=== PATIENT | female | born 1940 | race Caucasian/White ===

== ENCOUNTER → 2017-05-21 | Outpatient (CLI) | payer MEDICARE, OTHER ==
[~2017-05-21] MED LIST: AMLO10TA82 PO; CARV12.53 PO; CARV25TA PO; CHOL50003 PO; DULO60CA6 PO; DXZS4T PO; FISH OIL; FISH OIL 1,2001 EAC1 PO; GENT3.5O3 OU; HCT25T PO; LOPE2TAB48 PO; LPRM1B120 PO; METF-380 PO; NEBI5TAB8 PO; OMEP-10 PO; PANT40TA PO; POLY1DRO2 OU; POTA10CA43 PO; PRV20T PO; SCR1T PO; VALS320T8 PO; [UNRECOGNIZED DRUG - OTHER]; [UNRECOGNIZED DRUG - OTHER]
== END ==
LOC: RT 12:28
PROVIDERS: ATTEND Internal Medicine
DX: J84.10 Pulmonary fibrosis, unspecified (principal)

== ENCOUNTER → 2018-05-04 | Outpatient (CLI) | payer MEDICARE, OTHER ==
[~2018-05-04] MED LIST changes: +RT-ALBUTEROL SULF 2.5 MG/3 ML PRE-MIX VIAL INH ONE
== END ==
LOC: CARD 09:27
PROVIDERS: ATTEND Internal Medicine
DX: J45.909 Unspecified asthma, uncomplicated (principal); J44.9 Chronic obstructive pulmonary disease, unspecified; J84.115 Respiratory bronchiolitis interstitial lung disease
CPT/HCPCS: 93306; 94060; 94726; 94729

== ENCOUNTER 2018-11-19 09:45 | Inpatient (IN) | payer MEDICARE, OTHER ==
[2018-11-19] VITALS (23 sets, daily range): BP systolic 63–154; BP diastolic 47–76
[~2018-11-19] VITALS: Ht 165.1 cm; Wt 77.1 kg
[~2018-11-19 09:45] MED LIST changes: -RT-ALBUTEROL SULF 2.5 MG/3 ML PRE-MIX VIAL INH ONE
--- OUTSIDE RECORDS SUMMARY | 2018-11-19 09:52 | XMS REPORT | CCD ---
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 Name Role Phone PP Unavailable CCM Unavailable Summary Purpose Interface Exchange Insurance Providers Payer name Policy type / Coverage type Covered democrat ID Effective Begin Date Effective End Date WPS Medicare Part B Medicare Part B [id number] Unknown [employer] [place] Medicare Part B [id number] Unknown Family history Brother Diagnosis Age At Onset Blood clot Unknown Father Diagnosis Age At Onset No Family Disease Entered N/A Son Diagnosis Age At Onset No Family Disease Entered N/A Daughter Diagnosis Age At Onset No Family Disease Entered N/A Brother Diagnosis Age At Onset Skin cancer Unknown Mother Diagnosis Age At Onset No Family Disease Entered N/A Daughter Diagnosis Age At Onset No Family Disease Entered N/A Social History Social History Element Codes Description Effective Dates Marital status Unknown 02/02/2012 Number of children Unknown 3 02/02/2012 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 Unknown Has never used illegal drugs 02/02/2012 Allergies, Adverse Reactions, Alerts Substance Reaction Codes Entered Date Inactivated Date Status clonidine RxNorm: 2599 02/02/2012 No Inactive Date Active Past Medical History Illness Codes Condition Status Onset Date Resolved Date Essential (primary) hypertension ICD-9: 401.1 ICD-10: I10 Active 02/19/2017 Unknown Idiopathic pulmonary fibrosis ICD-9: 516.31 ICD-10: J84.112 Active 07/01/2016 Unknown Type 2 diabetes mellitus without complications ICD-9: 250.00 ICD-10: E11.9 Active 10/29/2016 Unknown Vitamin D deficiency, unspecified ICD-9: 268.9 ICD-10: E55.9 Active 09/08/2018 Unknown Encounter for immunization ICD-9: V04.81 ICD-10: Z23 Active 07/01/2016 Unknown Type 2 diabetes mellitus with hyperglycemia ICD-9: 250.00 ICD-10: E11.65 Active 12/23/2015 Unknown Encounter for general adult medical examination with abnormal findings ICD-9: V70.0 ICD-10: Z00.01 Active 09/22/2016 Unknown Encounter for immunization ICD-9: V03.82 ICD-10: Z23 Active 09/09/2017 Unknown Cough ICD-9: 786.2 ICD-10: R05 Active 10/29/2016 Unknown Essential (primary) hypertension ICD-9: 401.9 ICD-10: I10 Active 10/29/2016 Unknown Pneumonia, unspecified organism ICD-9: 486 ICD-10: J18.9 Active 10/29/2016 Unknown Mixed incontinence ICD -9: 788.33 ICD-10: N39.46 Active 11/21/2015 Unknown COPD (chronic obstructive pulmonary disease) ICD-9: 496 Active 05/12/2015 Unknown Diabetes ICD-9: 250.00 Active 02/02/2012 Unknown Diarrhea ICD-9: 787.91 Active 02/02/2012 Unknown ESSENTIAL HYPERTENSION ICD-9: 401.9 Active 02/08/2014 Unknown COUGH ICD-9: 786.2 Active 04/12/2014 Unknown ESOPHAGEAL REFLUX ICD- 9: 530.81 Active 04/12/2014 Unknown Hiatal hernia ICD-9: 553.3 Active 04/12/2014 Unknown Hoarseness of voice ICD-9: 784.42 Active 03/13/2014 Unknown Hoarseness or changing voice ICD-9: 784.49 Active 03/13/2014 Unknown Tachycardia ICD-9: 785.0 Active 03/13/2014 Unknown Skin cancer Unknown Resolved 02/08/2014 Unknown Facial swelling ICD-9 : 784.2 Resolved 03/01/2012 Unknown HYPERLIPIDEMIA ICD-9: 272.4 Active 10/10/2013 Unknown Mouth dryness ICD-9: 527.7 Active 10/10/2013 Unknown Rosacea ICD-9: 695.3 Active 03/29/2013 Unknown Benign neoplasm of skin ICD-9: 216.9 Active 11/28/2012 Unknown VACCIN FOR INFLUENZA ICD-9: V04.81 Active 08/15/2012 Unknown Encounter for routine pelvic examination ICD-9: V72.31 Active 05/31/2012 Unknown Skin lesion ICD-9: 709.9 Active 05/31/2012 Unknown Vaginal Discharge ICD- 9: 623.5 Active 05/31/2012 Unknown Diabetes Unknown Active 02/02/2012 Unknown Fibromyalgia Unknown Active 02/02/2012 Unknown Gastroesophageal reflux disease Unknown Active 02/02/2012 Unknown Hyperlipidemia Unknown Active 02/02/2012 Unknown Hypertension Unknown Active 02/02/2012 Unknown Ulcerative colitis Unknown Active 02/02/2012 Unknown Vitamin D Deficiency Unknown Active 02/02/2012 Unknown Fibromyalgia ICD-9: 729.1 Active 02/02/2012 Unknown Problems Condition Codes Effective Dates Condition Status Essential (primary) hypertension ICD-9: 401.1 ICD-10: I10 02/19/2017 Active Idiopathic pulmonary fibrosis ICD-9: 516.31 ICD-10: J84.112 07/01/2016 Active Type 2 diabetes mellitus without complications ICD-9: 250.00 ICD-10: E11.9 10/29/2016 Active Vitamin D deficiency, unspecified ICD-9: 268.9 ICD-10: E55.9 09/08/2018 Active Encounter for immunization ICD-9: V04.81 ICD-10: Z23 07/01/2016 Active Type 2 diabetes mellitus with hyperglycemia ICD-9: 250.00 ICD-10: E11.65 12/23/2015 Active Encounter for general adult medical examination with abnormal findings ICD-9: V70.0 ICD-10: Z00.01 09/22/2016 Active Encounter for immunization ICD-9: V03.82 ICD-10: Z23 09/09/2017 Active Cough ICD-9: 786.2 ICD-10: R05 10/29/2016 Active Essential (primary) hypertension ICD-9: 401.9 ICD-10: I10 10/29/2016 Active Pneumonia, unspecified organism ICD-9: 486 ICD-10: J18.9 10/29/2016 Active Mixed incontinence ICD -9: 788.33 ICD-10: N39.46 11/21/2015 Active COPD (chronic obstructive pulmonary disease) ICD-9: 496 05/12/2015 Active Diabetes ICD-9: 250.00 02/02/2012 Active Diarrhea ICD-9: 787.91 02/02/2012 Active ESSENTIAL HYPERTENSION ICD-9: 401.9 02/08/2014 Active COUGH ICD-9: 786.2 04/12/2014 Active ESOPHAGEAL REFLUX ICD- 9: 530.81 04/12/2014 Active Hiatal hernia ICD-9: 553.3 04/12/2014 Active Hoarseness of voice ICD-9: 784.42 03/13/2014 Active Hoarseness or changing voice ICD-9: 784.49 03/13/2014 Active Tachycardia ICD-9: 785.0 03/13/2014 Active Skin cancer Unknown 02/08/2014 Resolved Facial swelling ICD-9 : 784.2 03/01/2012 Resolved HYPERLIPIDEMIA ICD-9: 272.4 10/10/2013 Active Mouth dryness ICD-9: 527.7 10/10/2013 Active Rosacea ICD-9: 695.3 03/29/2013 Active Benign neoplasm of skin ICD-9: 216.9 11/28/2012 Active VACCIN FOR INFLUENZA ICD-9: V04.81 08/15/2012 Active Encounter for routine pelvic examination ICD-9: V72.31 05/31/2012 Active Skin lesion ICD-9: 709.9 05/31/2012 Active Vaginal Discharge ICD- 9: 623.5 05/31/2012 Active Diabetes Unknown 02/02/2012 Active Fibromyalgia Unknown 02/02/2012 Active Gastroesophageal reflux disease Unknown 02/02/2012 Active Hyperlipidemia Unknown 02/02/2012 Active Hypertension Unknown 02/02/2012 Active Ulcerative colitis Unknown 02/02/2012 Active Vitamin D Deficiency Unknown 02/02/2012 Active Fibromyalgia ICD-9: 729.1 02/02/2012 Active Medications Medication Codes Instructions Start Date Stop Date Status Fill Instructions Breeze 2 Test Strips RxNorm: USE TO TEST ONCE DAILY 201703/13/2020 Active prednisone 5 mg tablet RxNorm: 195516 1 Tablet(s) PO daily No Stop Date Active pantoprazole 40 mg tablet,delayed release RxNorm: 687480 1 Tablet(s) PO daily 09/08/2018 No Stop Date Active losartan 100 mg tablet RxNorm: 441356 1 Tablet(s) PO daily 01/07/2019 Active carvedilol 25 mg tablet RxNorm: 692959 1 Tablet(s) PO BID 01/1301/07/2019 Active hydrochlorothiazide 25 mg tablet RxNorm: 781447 1 Tablet(s) PO daily 01/13/2018 01/07/2019 Active glimepiride 1 mg tablet RxNorm: 834652 1 Tablet(s) PO daily 01/07/2019 Active doxazosin 4 mg tablet RxNorm: 032772 1 Tablet(s) PO BID 201701/07/2019 Active amlodipine 10 mg tablet RxNorm: 215034 1 Tablet(s) PO daily 01/07/2019 Active potassium chloride ER 20 mEq tablet,extended release RxNorm: 179219 1 Tablet(s) PO BID 01/13/2018 01/07/2019 Active pantoprazole 40 mg tablet,delayed release RxNorm: 122332 1 Tablet(s) PO BID 01/13/2018 09/07/2018 Inactive azithromycin 250 mg tablet RxNorm: 056384 1 Tablet(s) PO daily 02/19/2017 02/23/2017 Inactive Take two the first day Zithromax Z-Yasir 250 mg tablet RxNorm: 020834 1 Tablet(s) PO UD 10/30/2016 02/18/2017 Inactive zpack cefdinir 300 mg capsule RxNorm: 041339 1 Capsule(s) PO BID 03/201711/05/2016 Inactive potassium chloride ER 10 mEq capsule,extended release RxNorm: 101454 2 Capsule(s) PO QHS 09/23/2016 09/17/2017 Inactive losartan 100 mg tablet RxNorm: 440763 1 Tablet(s) PO daily 05/201609/24/2017 Inactive Kenalog 40 mg/mL suspension for injection RxNorm: 2871254 1 Milliliter(s) Inj 03/26/2016 03/26/2016 Inactive doxazosin 4 mg tablet RxNorm: 942745 1 Tablet(s) PO BID 201504/03/2017 Inactive glimepiride 1 mg tablet RxNorm: 532659 1 Tablet(s) PO daily 04/03/2017 Inactive pantoprazole 40 mg tablet,delayed release RxNorm: 358951 1 Tablet(s) PO daily 01/10/2016 04/03/2017 Inactive amlodipine 10 mg tablet RxNorm: 376006 1 Tablet(s) PO daily or BID based on bp 01/10/2016 04/03/2017 Inactive hydrochlorothiazide 25 mg tablet RxNorm: 009878 1 Tablet(s) PO daily 01/10/2016 04/03/2017 Inactive carvedilol 25 mg tablet RxNorm: 988881 1 Tablet(s) PO BID 01/0904/03/2017 Inactive carvedilol 25 mg tablet RxNorm: 617318 1 Tablet(s) PO BID 12/2301/09/2016 Inactive doxazosin 4 mg tablet RxNorm: 930537 1 Tablet(s) PO BID 201501/09/2016 Inactive amlodipine 10 mg tablet RxNorm: 670634 1 Tablet(s) PO daily or BID based on bp 12/24/2015 01/09/2016 Inactive glimepiride 1 mg tablet RxNorm: 190239 1 Tablet(s) PO daily 01/09/2016 Inactive Myrbetriq 25 mg tablet,extended release RxNorm: 9086877 1 Tablet(s) PO daily 11/22/2015 07/01/2016 Inactive Breeze 2 Test Strips RxNorm: MISCELLANEOUS TEST ONCE DAILY 09/20/2018 Inactive Kenalog 40 mg/mL suspension for injection RxNorm: 7199761 Milliliter(s) Inj 05/13/2015 05/13/2015 Inactive prednisone 20 mg tablet RxNorm: 499538 2 Tablet(s) PO daily 05/15/2015 Inactive Lactobacillus acidophilus 1 billion cell tablet RxNorm: 073326 1 Tablet(s) PO BID 05/13/2015 06/11/2015 Inactive carvedilol 25 mg tablet RxNorm: 369835 1 Tablet(s) PO BID 02/2809/25/2015 Inactive Cymbalta 60 mg capsule,delayed release RxNorm: 762482 1 Capsule(s) PO daily 01/02/2015 05/12/2015 Inactive metformin 1,000 mg tablet RxNorm: 802250 1 Tablet(s) PO BID 08/201505/12/2015 Inactive doxazosin 4 mg tablet RxNorm: 599728 1 Tablet(s) PO BID 201404/01/2015 Inactive amlodipine 10 mg tablet RxNorm: 974822 1 Tablet(s) PO daily 08/201512/23/2015 Inactive Breeze 2 Test Strips RxNorm: Miscellaneous test once daily 06/19/2015 Inactive carvedilol 25 mg tablet RxNorm: 749993 1 Tablet(s) PO BID 06/0412/30/2014 Inactive Fish Oil 1,000 mg capsule RxNorm: 3 Capsule(s) PO daily 201312/23/2015 Inactive potassium chloride ER 10 mEq capsule,extended release RxNorm: 559406 1 Capsule(s) PO QHS 04/12/2014 04/06/2015 Inactive hydrochlorothiazide 25 mg tablet RxNorm: 174815 1 Tablet(s) PO daily 04/12/2014 07/05/2015 Inactive carvedilol 12.5 mg tablet RxNorm: 199921 1.5 Tablet(s) PO BID 03/13/2014 2014 Inactive Carafate 100 mg/mL oral suspension RxNorm: 651653 10 Milliliter(s) PO QID 03/13/2014 05/12/2015 Inactive disepnse qs x 30 days pantoprazole 40 mg tablet,delayed release RxNorm: 890488 1 Tablet(s) PO daily 03/13/2014 03/07/2015 Inactive Diovan 160 mg tablet RxNorm: 612594 1 Tablet(s) PO 03/13/2014 05/12/2015 Inactive carvedilol 12.5 mg tablet RxNorm: 500942 1 Tablet(s) PO BID 03/12/2014 Inactive Diovan 320 mg tablet RxNorm: 701881 1 Tablet(s) PO daily 201303/12/2014 Inactive Influenza Virus Vaccine 0.5 mL RxNorm: IM 07/18/2013 07/18/2013 Inactive Breeze 2 Test Strips RxNorm: Miscellaneous test once daily 03/201306/05/2014 Inactive minocycline 50 mg tablet RxNorm: 902379 1 Tablet(s) PO BID PRN use prn for rosacea flair 03/29/2013 02/07/2014 Inactive tetracycline 250 mg capsule RxNorm: 813395 1 Capsule(s) PO BID PRN 03/29/2013 03/29/2013 Inactive Flagyl 500 mg tablet RxNorm: 743334 1 Tablet(s) PO BID 201212/21/2012 Inactive Cymbalta 60 mg capsule,delayed release RxNorm: 445190 1 Capsule(s) PO daily 11/08/2012 11/02/2013 Inactive Cymbalta 60 mg capsule,delayed release RxNorm: 910897 1 Capsule(s) PO daily 06/15/2012 11/07/2012 Inactive fluconazole 150 mg tablet RxNorm: 878886 1 Tablet(s) PO daily 05/31/2012 06/04/2012 Inactive potassium chloride ER 10 mEq capsule,extended release RxNorm: 580533 1 Capsule(s) PO QHS 05/31/2012 05/25/2013 Inactive Vitamin D3 2,000 unit tablet RxNorm: 010025 5 Tablet(s) PO daily 05/31/2012 02/07/2014 Inactive Bystolic 5 mg Tab RxNorm: 715369 1 Tablet(s) PO daily 201101/04/2014 Inactive Diovan 320 mg tablet RxNorm: 135524 1 Tablet(s) PO daily 201102/23/2013 Inactive omeprazole 20 mg Cap, delayed release RxNorm: 992932 1 Capsule(s) PO daily 03/01/2012 02/23/2013 Inactive Lipitor 10 mg Tab RxNorm: 545640 1 Tablet(s) PO daily 201102/18/2012 Inactive Lipitor 10 mg Tab RxNorm: 374159 1 Tablet(s) PO daily 201102/08/2012 Inactive azathioprine 50 mg tablet RxNorm: 488324 2 Tablet(s) PO QAM and 1 Tablet PO QPM No Start Date Active carboxymethylcellulose sodium 0.5 % Eye Drops RxNorm: 3922337 2 Drop(s) OPH TID No Start Date Active fenofibrate 160 mg tablet RxNorm: 872627 1 Tablet(s) PO daily No Start Date Active Aldara 5 % topical cream packet RxNorm: 658100 1 Application TOP 5x per week for skin cancer No Start Date Active Bystolic 5 mg tablet RxNorm: 088744 1 Tablet(s) PO daily No Start Date 02/07/2014 Inactive metformin 1,000 mg Tab RxNorm: 548020 1 Tablet(s) PO BID No Start Date 01/01/2015 Inactive Prilosec 20 mg capsule,delayed release RxNorm: 279052 1 Capsule(s) PO daily No Start Date 03/12/2014 Inactive GenTeal PM 85 %-15 % Eye Ointment RxNorm: 623599 .25 inch OPH QHS No Start Date 12/23/2015 Inactive Breeze 2 Test Strips RxNorm: Miscellaneous test once daily No Start Date 05/29/2013 Inactive Prevalite 4 gram Oral Packet RxNorm: 319923 1 packet PO daily No Start Date 05/30/2012 Inactive Vitamin D3 2,000 unit tablet RxNorm: 227127 5 Tablet(s) PO daily No Start Date 05/30/2012 Inactive loperamide 2 mg Cap RxNorm: 857067 1 Capsule(s) PO BID PRN No Start Date 02/07/2014 Inactive amlodipine 10 mg tablet RxNorm: 804393 1 Tablet(s) PO daily No Start Date 01/01/2015 Inactive Pravachol 40 mg Tab RxNorm: 427689 1/2 Tablet(s) PO daily No Start Date 02/07/2014 Inactive hydrochlorothiazide 25 mg Tab RxNorm: 237936 1 Tablet(s) PO daily No Start Date 04/11/2014 Inactive losartan 100 mg tablet RxNorm: 775644 1 Tablet(s) PO daily No Start Date 07/01/2016 Inactive Bystolic 5 mg Tab RxNorm: 357594 1 Tablet(s) PO daily No Start Date 02/29/2012 Inactive prednisone 2.5 mg tablet RxNorm: 621107 1 Tablet(s) PO daily No Start Date 09/07/2018 Inactive Diovan 320 mg Tab RxNorm: 356040 1 Tablet(s) PO daily No Start Date 02/29/2012 Inactive Vitamin D3 2,000 unit Cap RxNorm: 552427 1 Capsule(s) PO BID No Start Date 05/30/2012 Inactive doxazosin 4 mg Tab RxNorm: 003809 1 Tablet(s) PO BID No Start Date 01/01/2015 Inactive Vitamin D3 5,000 unit tablet RxNorm: 109166 2 Tablet(s) PO daily No Start Date 12/23/2015 Inactive omeprazole 20 mg Cap, delayed release RxNorm: 155225 1 Capsule(s) PO daily No Start Date 02/29/2012 Inactive leflunomide 20 mg tablet RxNorm: 195839 1 Tablet(s) PO daily No Start Date 09/07/2018 Inactive carvedilol 25 mg Tab RxNorm: 627044 1 Tablet(s) PO BID No Start Date 01/03/2014 Inactive Cymbalta 60 mg capsule,delayed release RxNorm: 649685 1 Capsule(s) PO daily No Start Date 06/14/2012 Inactive Spiriva with HandiHaler 18 mcg & inhalation capsules RxNorm: 383318 1 Capsule(s) INH daily No Start Date 12/23/2015 Inactive Medication Administered Medication Codes Instructions Start Date Status Kenalog 40 mg/mL suspension for injection RxNorm: 7545344 1Milliliter 03/26/2016 No longer Active Kenalog 40 mg/mL suspension for injection RxNorm: 5249308 Milliliter 05/13/2015 No longer Active Influenza Virus Vaccine 0.5 mL RxNorm: 07/18/2013 No longer Active Immunizations Vaccine Codes Date Status Influenza CVX: 141 08/11/2018 completed Pneumococcal (Adult) CVX: 133 09/09/2017 completed Influenza CVX: 141 08/13/2017 completed Influenza CVX: 141 07/02/2016 completed Influenza CVX: 141 07/18/2013 completed Influenza CVX: 141 08/15/2012 completed Assessments Condition Codes Effective Dates Idiopathic pulmonary fibrosis ICD-10: J84.112 ICD-9: 516.31 09/08/2018 Essential (primary) hypertension ICD-10: I10 ICD-9: 401.1 09/08/2018 Type 2 diabetes mellitus without complications ICD-10: E11.9 ICD-9: 250.00 09/08/2018 Vitamin D deficiency, unspecified ICD-10: E55.9 ICD-9: 268.9 09/08/2018 Encounter for immunization ICD-10: Z23 ICD-9: V04.81 08/11/2018 Type 2 diabetes mellitus with hyperglycemia ICD-10: E11.65 ICD-9: 250.00 01/13/2018 Encounter for general adult medical examination with abnormal findings ICD-10: Z00.01 ICD-9: V70.0 09/29/2017 Encounter for immunization ICD-10: Z23 ICD-9: V03.82 09/09/2017 Cough ICD-10: R05 ICD-9: 786.2 02/19/2017 Pneumonia, unspecified organism ICD-10: J18.9 ICD-9: 486 10/30/2016 Essential (primary) hypertension ICD-10: I10 ICD-9: 401.9 10/30/2016 Mixed incontinence ICD-10: N39.46 ICD-9: 788.33 11/22/2015 Diarrhea ICD-9: 787.91 05/13/2015 ESSENTIAL HYPERTENSION ICD-9: 401.9 05/13 Diabetes ICD-9: 250.00 05/13/2015 COPD (chronic obstructive pulmonary disease) ICD-9: 496 05/13/2015 ESOPHAGEAL REFLUX ICD-9: 530.81 2013 Hiatal hernia ICD-9: 553.3 04/12/2014 COUGH ICD-9: 786.2 04/12/2014 Hoarseness or changing voice ICD-9: 784.49 03/13/2014 Tachycardia ICD-9: 785.0 03/13/2014 Hoarseness of voice ICD-9: 784.42 2013 HYPERLIPIDEMIA ICD-9: 272.4 10/10/2013 Mouth dryness ICD-9: 527.7 10/10/2013 VACCIN FOR INFLUENZA ICD-9: V04.81 2012 Rosacea ICD-9: 695.3 03/29/2013 Benign neoplasm of skin ICD-9: 216.9 01/2013 SKIN DISORDER ICD-9: 709.9 11/28/2012 Encounter for routine pelvic examination ICD-9: V72.31 05/31/2012 Vaginal Discharge ICD-9: 623.5 2011 Facial swelling ICD-9: 784.2 03/01/2012 Fibromyalgia ICD-9: 729.1 02/02/2012 Reason For Visit Reason For Visit Effective Dates Notes diabetes mellitus 09/08/2018 vaccination against influenza 08/11/2018 diabetes mellitus 01/13/2018 diabetes mellitus 12/01/2017 Annual Medicare Wellness Exam 09/29/2017 vaccination against pneumonia 09/09/2017 vaccination against influenza 08/13/2017 cough 02/19/2017 cough 10/30/2016 Annual Medicare Wellness Exam 09/23/2016 diabetes mellitus 07/02/2016 diabetes mellitus 03/26/2016 diabetes mellitus 12/24/2015 diabetes mellitus 11/22/2015 hypertension 05/13/2015 cough 04/12/2014 cough 03/13/2014 hypertension 02/08/2014 hypertension 10/10/2013 vaccination against influenza 07/18/2013 hypertension 03/29/2013 skin lesion 11/28/2012 vaccination against influenza 08/15/2012 well woman exam (65+ years) 05/31/2012 diabetes mellitus 03/01/2012 pt states that she was rushed this morning and a little stressed, that's why her bp was high hypertension 02/02/2012 Results Observation Observation Code Item Item Code Result Date %Hba1C Yks048 % HbA1c 19546-5 6.4 % 01/13/2018 %Hba1C Nck265 Gluc Ave 137 mg/dL 01/13/2018 %Hba1C Cgn980 % HbA1c 81900-2 5.9 % 10/30/2016 %Hba1C Fox426 Gluc Ave 123 mg/dL 10/30/2016 Cbc With Differential Ord2 WBC 9.09 K/ul 10/30/2016 Cbc With Differential Ord2 RBC 4.88 M/ul 10/30/2016 Cbc With Differential Ord2 HGB 14.4 g/dl 10/30/2016 Cbc With Differential Ord2 Neut% 70.9 % 10/30/2016 Cbc With Differential Ord2 HCT 42.5 % 10/30/2016 Cbc With Differential Ord2 Lymph% 18.4 % 10/30/2016 Cbc With Differential Ord2 MCV 87.1 fl 10/30/2016 Cbc With Differential Ord2 [place]% 6.8 % 10/30/2016 Cbc With Differential Ord2 MCH 29.5 pg 10/30/2016 Cbc With Differential Ord2 MCHC 33.9 pg 10/30/2016 Cbc With Differential Ord2 Eos% 3.5 % 10/30/2016 Cbc With Differential Ord2 PLT 251 K/ul 10/30/2016 Cbc With Differential Ord2 Baso% 0.4 % 10/30/2016 Cbc With Differential Ord2 RDW 14.3 % 10/30/2016 Cbc With Differential Ord2 Neut ABS# 6.44 K/ul 10/30/2016 Cbc With Differential Ord2 Lymph ABS# 1.67 K/ul 10/30/2016 Cbc With Differential Ord2 [place] ABS# 0.6 K/ul 10/30/2016 Cbc With Differential Ord2 Eos ABS# 0.3 K/ul 10/30/2016 Cbc With Differential Ord2 Baso ABS# 0.0 K/ul 10/30/2016 Comp Metabolic Gnm072 NA 140 mEq/L 10/30/2016 Comp Metabolic Gxv471 K 3.8 mEq/L 10/30/2016 Comp Metabolic Ptg780 CL 101 mEq/L 10/30/2016 Comp Metabolic Djv202 CO2 32.0 mEq/L 10/30/2016 Comp Metabolic Tvj276 ANION GAP 11 10/30/2016 Comp Metabolic Fuz770 GLUCOSE 160 mg/dL 10/30/2016 Comp Metabolic Cqq478 Creat 0.7 mg/dL 10/30/2016 Comp Metabolic Elw266 eGFR 94 ml/min/1.73m2 10/30/2016 Comp Metabolic Rzl001 BUN 22 mg/dL 10/30/2016 Comp Metabolic Itm414 B/C Ratio 33.8 Ratio 10/30/2016 Comp Metabolic Hsu320 CALCIUM 9.7 mg/dL 10/30/2016 Comp Metabolic Eiv422 ALK PHOS 58 U/L 10/30/2016 Comp Metabolic Old509 AST(SGOT) 18 U/L 10/30/2016 Comp Metabolic Okh927 ALT(SGPT) 21 U/L 10/30/2016 Comp Metabolic Kij843 BILI T 0.4 mg/dL 10/30/2016 Comp Metabolic Pyi767 ALBUMIN 4.1 g/dL 10/30/2016 Comp Metabolic Mmf636 TPRO 7.0 g/dL 10/30/2016 Comp Metabolic Uhf367 GLOB 2.9 g/dL 10/30/2016 Comp Metabolic Vqg195 A/G Ratio 1.4 Ratio 10/30/2016 Comp Metabolic Tjv730 Osmo 286 mOsmo 10/30/2016 Review of Systems System Result Effective Dates Constitutional No recent illness 2017 Constitutional No chills 09/08/2018 Constitutional No diaphoresis 09/08/2018 Constitutional No fever 09/08/2018 Eyes No blindness 09/08/2018 Eyes No eye pain 09/08/2018 Eyes No vision change 09/08/2018 Ears/Nose/Throat/Neck No nasal discharge 09/08/2018 Cardiovascular No chest pain/pressure Cardiovascular No dyspnea 09/08/2018 Respiratory No chest congestion 2017 Respiratory No cough 09/08/2018 Gastrointestinal No abdominal pain 2017 Gastrointestinal No constipation 2017 Gastrointestinal diarrhea 09/08/2018 Gastrointestinal No nausea 09/08/2018 Gastrointestinal No vomiting 09/08/2018 Genitourinary/Nephrology No dysuria 09/08 Neurologic No alteration of consciousness 09/08/2018 Neurologic No mental status change 2017 Endocrine diabetes mellitus type 2 2017 Constitutional fatigue 09/08/2018 Constitutional insomnia 09/08/2018 Ears/Nose/Throat/Neck hoarseness 2017 Ears/Nose/Throat/Neck nasal allergies Genitourinary/Nephrology urinary incontinence 09/08/2018 Genitourinary/Nephrology urinary urgency 09/08/2018 Musculoskeletal stiffness 09/08/2018 Musculoskeletal swelling 09/08/2018 Musculoskeletal arthralgia(s) 09/08/2018 Constitutional recent illness 01/13/2018 Constitutional No anorexia 01/13/2018 Constitutional No night sweats 2017 Constitutional No chills 01/13/2018 Constitutional No diaphoresis 01/13/2018 Constitutional fatigue 01/13/2018 Constitutional No fever 01/13/2018 Constitutional insomnia 01/13/2018 Constitutional No malaise 01/13/2018 Constitutional No weight loss 01/13/2018 Constitutional No weight gain 01/13/2018 Constitutional No obesity 01/13/2018 Eyes No eye pain 01/13/2018 Eyes No vision change 01/13/2018 Ears/Nose/Throat/Neck No dizziness 2017 Ears/Nose/Throat/Neck No headache 2017 Ears/Nose/Throat/Neck hoarseness 2017 Ears/Nose/Throat/Neck nasal allergies Ears/Nose/Throat/Neck nasal discharge Ears/Nose/Throat/Neck No sinus congestion 01/13/2018 Ears/Nose/Throat/Neck No sore throat Cardiovascular No chest pain/pressure Cardiovascular No dyspnea 01/13/2018 Cardiovascular fatigue 01/13/2018 Respiratory productive sputum 01/13/2018 Respiratory chest congestion 01/13/2018 Respiratory chest tightness 01/13/2018 Respiratory No cigarette smoking 2017 Respiratory cough 01/13/2018 Gastrointestinal No abdominal pain 2017 Gastrointestinal No constipation 2017 Gastrointestinal diarrhea 01/13/2018 Gastrointestinal No nausea 01/13/2018 Gastrointestinal No vomiting 01/13/2018 Genitourinary/Nephrology No anuria/oliguria 01/13/2018 Genitourinary/Nephrology No dysuria 01/13 Genitourinary/Nephrology urinary urgency 01/13/2018 Genitourinary/Nephrology urinary incontinence 01/13/2018 Musculoskeletal stiffness 01/13/2018 Musculoskeletal swelling 01/13/2018 Musculoskeletal arthralgia(s) 01/13/2018 Dermatologic No rash 01/13/2018 Neurologic No alteration of consciousness 01/13/2018 Neurologic No dizziness 01/13/2018 Neurologic No mental status change 2017 Psychiatric No anxiety 01/13/2018 Psychiatric No depression 01/13/2018 Endocrine No polydipsia 01/13/2018 Endocrine No polyuria 01/13/2018 Hematologic/Lymphatic No abnormal ecchymoses 01/13/2018 Hematologic/Lymphatic No abnormal bleeding and bruising 01/13/2018 Allergy/Immunology No anaphylactoid reaction 01/13/2018 Genitourinary/Nephrology nocturia 2017 Eyes No eye pain 12/01/2017 Eyes No vision change 12/01/2017 Cardiovascular No chest pain/pressure 04/2018 Cardiovascular No dyspnea 12/01/2017 Gastrointestinal No abdominal pain 2017 Gastrointestinal No constipation 2017 Gastrointestinal diarrhea 12/01/2017 Gastrointestinal No nausea 12/01/2017 Gastrointestinal No vomiting 12/01/2017 Constitutional No recent illness 2017 Constitutional No chills 12/01/2017 Constitutional No diaphoresis 12/01/2017 Constitutional No fever 12/01/2017 Eyes No eye erythema 12/01/2017 Ears/Nose/Throat/Neck No nasal discharge 12/01/2017 Respiratory No cough 12/01/2017 Respiratory No chest congestion 2017 Genitourinary/Nephrology No dysuria 12/01 Neurologic No alteration of consciousness 12/01/2017 Neurologic No mental status change 2017 Endocrine diabetes mellitus type 2 2017 Constitutional No recent illness 2016 Constitutional No chills 09/29/2017 Constitutional No diaphoresis 09/29/2017 Constitutional No fever 09/29/2017 Eyes No eye erythema 09/29/2017 Ears/Nose/Throat/Neck No nasal discharge 09/29/2017 Cardiovascular No chest pain/pressure 03/2017 Cardiovascular No dyspnea 09/29/2017 Respiratory No cough 09/29/2017 Respiratory No dyspnea 09/29/2017 Neurologic No alteration of consciousness 09/29/2017 Neurologic No mental status change 2016 Constitutional recent illness 02/19/2017 Constitutional No anorexia 02/19/2017 Constitutional No night sweats 2016 Constitutional No chills 02/19/2017 Constitutional No diaphoresis 02/19/2017 Constitutional fatigue 02/19/2017 Constitutional No fever 02/19/2017 Constitutional insomnia 02/19/2017 Constitutional No malaise 02/19/2017 Constitutional No weight loss 02/19/2017 Constitutional No weight gain 02/19/2017 Constitutional No obesity 02/19/2017 Eyes No eye pain 02/19/2017 Eyes No vision change 02/19/2017 Ears/Nose/Throat/Neck No dizziness 2016 Ears/Nose/Throat/Neck No headache 2016 Ears/Nose/Throat/Neck nasal allergies Ears/Nose/Throat/Neck nasal discharge Ears/Nose/Throat/Neck hoarseness 2016 Ears/Nose/Throat/Neck No sinus congestion 02/19/2017 Ears/Nose/Throat/Neck No sore throat Cardiovascular No chest pain/pressure Cardiovascular fatigue 02/19/2017 Cardiovascular No dyspnea 02/19/2017 Respiratory productive sputum 02/19/2017 Respiratory chest congestion 02/19/2017 Respiratory chest tightness 02/19/2017 Respiratory No cigarette smoking 2016 Respiratory cough 02/19/2017 Gastrointestinal No abdominal pain 2016 Gastrointestinal No constipation 2016 Gastrointestinal diarrhea 02/19/2017 Gastrointestinal No nausea 02/19/2017 Gastrointestinal No vomiting 02/19/2017 Genitourinary/Nephrology No anuria/oliguria 02/19/2017 Genitourinary/Nephrology No dysuria 02/19 Genitourinary/Nephrology urinary urgency 02/19/2017 Genitourinary/Nephrology urinary incontinence 02/19/2017 Musculoskeletal stiffness 02/19/2017 Musculoskeletal swelling 02/19/2017 Musculoskeletal arthralgia(s) 02/19/2017 Dermatologic No rash 02/19/2017 Dermatologic sores 02/19/2017 Neurologic No alteration of consciousness 02/19/2017 Neurologic No dizziness 02/19/2017 Neurologic No mental status change 2016 Psychiatric No anxiety 02/19/2017 Psychiatric No depression 02/19/2017 Hematologic/Lymphatic No abnormal ecchymoses 02/19/2017 Hematologic/Lymphatic No abnormal bleeding and bruising 02/19/2017 Endocrine No polyuria 02/19/2017 Endocrine No polydipsia 02/19/2017 Allergy/Immunology No anaphylactoid reaction 02/19/2017 Dermatologic rash 10/30/2016 Constitutional recent illness 10/30/2016 Constitutional No anorexia 10/30/2016 Constitutional night sweats 10/30/2016 Constitutional No chills 10/30/2016 Constitutional diaphoresis 10/30/2016 Constitutional fatigue 10/30/2016 Constitutional No fever 10/30/2016 Constitutional No insomnia 10/30/2016 Constitutional No malaise 10/30/2016 Constitutional No weight loss 10/30/2016 Constitutional No weight gain 10/30/2016 Eyes No eye erythema 10/30/2016 Eyes No eye discharge 10/30/2016 Ears/Nose/Throat/Neck No dizziness 2016 Ears/Nose/Throat/Neck No headache 2016 Cardiovascular No chest pain/pressure 03/2017 Respiratory cough 10/30/2016 Respiratory productive sputum 10/30/2016 Gastrointestinal No anorexia 10/30/2016 Gastrointestinal No abdominal pain 2016 Gastrointestinal No constipation 2016 Gastrointestinal diarrhea 10/30/2016 Genitourinary/Nephrology No dysuria 10/30 Neurologic No alteration of consciousness 10/30/2016 Musculoskeletal joint complaint 2016 Psychiatric depression 10/30/2016 Constitutional No recent illness 2015 Constitutional No chills 09/23/2016 Constitutional No diaphoresis 09/23/2016 Constitutional fatigue 09/23/2016 Constitutional No fever 09/23/2016 Eyes No vision change 09/23/2016 Ears/Nose/Throat/Neck No headache 2015 Ears/Nose/Throat/Neck No nasal discharge 09/23/2016 Ears/Nose/Throat/Neck No otalgia 2015 Ears/Nose/Throat/Neck No sinus congestion 09/23/2016 Ears/Nose/Throat/Neck No sore throat Cardiovascular No chest pain/pressure Respiratory No chest congestion 2015 Respiratory cough 09/23/2016 Respiratory No dyspnea on exertion 2015 Respiratory No dyspnea 09/23/2016 Gastrointestinal No constipation 2015 Gastrointestinal diarrhea 09/23/2016 Musculoskeletal No joint complaint 2015 Dermatologic No sores 09/23/2016 Neurologic No alteration of consciousness 09/23/2016 Constitutional No malaise 09/23/2016 Eyes No eye erythema 09/23/2016 Ears/Nose/Throat/Neck No nasal allergies 09/23/2016 Cardiovascular No dyspnea 09/23/2016 Respiratory No productive sputum 2015 Gastrointestinal No abdominal pain 2015 Gastrointestinal No vomiting 09/23/2016 Gastrointestinal No nausea 09/23/2016 Neurologic No mental status change 2015 Constitutional No recent illness 2015 Constitutional No anorexia 07/02/2016 Constitutional No night sweats 2015 Constitutional No chills 07/02/2016 Constitutional No diaphoresis 07/02/2016 Constitutional fatigue 07/02/2016 Constitutional No fever 07/02/2016 Constitutional insomnia 07/02/2016 Constitutional No malaise 07/02/2016 Constitutional No weight loss 07/02/2016 Constitutional No weight gain 07/02/2016 Constitutional No obesity 07/02/2016 Eyes No vision change 07/02/2016 Ears/Nose/Throat/Neck No headache 2015 Ears/Nose/Throat/Neck hoarseness 2015 Ears/Nose/Throat/Neck nasal allergies 05/2016 Ears/Nose/Throat/Neck No nasal discharge 07/02/2016 Ears/Nose/Throat/Neck No otalgia 2015 Ears/Nose/Throat/Neck No otitis media 05/2016 Ears/Nose/Throat/Neck No sinus congestion 07/02/2016 Ears/Nose/Throat/Neck No sore throat 05/2016 Cardiovascular No chest pain/pressure 05/2016 Respiratory productive sputum 07/02/2016 Respiratory chest congestion 07/02/2016 Respiratory No chest tightness 2015 Respiratory No cigarette smoking 2015 Respiratory cough 07/02/2016 Respiratory No dyspnea on exertion 2015 Respiratory No dyspnea 07/02/2016 Gastrointestinal No constipation 2015 Gastrointestinal diarrhea 07/02/2016 Genitourinary/Nephrology No dysuria 07/02 Genitourinary/Nephrology urinary urgency 07/02/2016 Genitourinary/Nephrology No urinary frequency 07/02/2016 Genitourinary/Nephrology urinary incontinence 07/02/2016 Musculoskeletal No joint complaint 2015 Musculoskeletal No muscle weakness 2015 Musculoskeletal No myalgias 07/02/2016 Dermatologic No sores 07/02/2016 Psychiatric No anxiety 07/02/2016 Psychiatric No depression 07/02/2016 Dermatologic erythema 07/02/2016 Neurologic No alteration of consciousness 07/02/2016 Constitutional No recent illness 2015 Constitutional No anorexia 03/26/2016 Constitutional No night sweats 2015 Constitutional No chills 03/26/2016 Constitutional No diaphoresis 03/26/2016 Constitutional fatigue 03/26/2016 Constitutional No fever 03/26/2016 Constitutional insomnia 03/26/2016 Constitutional No malaise 03/26/2016 Constitutional No weight loss 03/26/2016 Constitutional No weight gain 03/26/2016 Constitutional No obesity 03/26/2016 Eyes No vision change 03/26/2016 Ears/Nose/Throat/Neck No headache 2015 Ears/Nose/Throat/Neck hoarseness 2015 Ears/Nose/Throat/Neck nasal allergies 11/2015 Ears/Nose/Throat/Neck No nasal discharge 03/26/2016 Ears/Nose/Throat/Neck No otalgia 2015 Ears/Nose/Throat/Neck No otitis media 11/2015 Ears/Nose/Throat/Neck No sinus congestion 03/26/2016 Ears/Nose/Throat/Neck No sore throat 11/2015 Cardiovascular No chest pain/pressure 11/2015 Respiratory productive sputum 03/26/2016 Respiratory chest congestion 03/26/2016 Respiratory No chest tightness 2015 Respiratory No cigarette smoking 2015 Respiratory cough 03/26/2016 Respiratory No dyspnea on exertion 2015 Respiratory No dyspnea 03/26/2016 Gastrointestinal No constipation 2015 Gastrointestinal diarrhea 03/26/2016 Genitourinary/Nephrology No dysuria 03/26 Genitourinary/Nephrology urinary urgency 03/26/2016 Genitourinary/Nephrology No urinary frequency 03/26/2016 Genitourinary/Nephrology urinary incontinence 03/26/2016 Musculoskeletal No joint complaint 2015 Musculoskeletal No muscle weakness 2015 Musculoskeletal No myalgias 03/26/2016 Dermatologic No rash 03/26/2016 Dermatologic No sores 03/26/2016 Psychiatric No anxiety 03/26/2016 Psychiatric No depression 03/26/2016 Constitutional No recent illness 2015 Constitutional No anorexia 12/24/2015 Constitutional No night sweats 2015 Constitutional No chills 12/24/2015 Constitutional No diaphoresis 12/24/2015 Constitutional fatigue 12/24/2015 Constitutional No fever 12/24/2015 Constitutional insomnia 12/24/2015 Constitutional No malaise 12/24/2015 Constitutional No weight loss 12/24/2015 Constitutional No weight gain 12/24/2015 Constitutional No obesity 12/24/2015 Eyes No vision change 12/24/2015 Ears/Nose/Throat/Neck No nasal discharge 12/24/2015 Ears/Nose/Throat/Neck No nasal allergies 12/24/2015 Ears/Nose/Throat/Neck No headache 2015 Ears/Nose/Throat/Neck hoarseness 2015 Ears/Nose/Throat/Neck No sore throat 10/2015 Ears/Nose/Throat/Neck No sinus congestion 12/24/2015 Ears/Nose/Throat/Neck No otitis media 10/2015 Ears/Nose/Throat/Neck No otalgia 2015 Cardiovascular No chest pain/pressure 10/2015 Respiratory cough 12/24/2015 Respiratory No cigarette smoking 2015 Respiratory No chest tightness 2015 Respiratory chest congestion 12/24/2015 Respiratory No dyspnea 12/24/2015 Respiratory No dyspnea on exertion 2015 Gastrointestinal diarrhea 12/24/2015 Gastrointestinal No constipation 2015 Genitourinary/Nephrology No dysuria 12/23 Genitourinary/Nephrology urinary incontinence 12/24/2015 Genitourinary/Nephrology urinary urgency 12/24/2015 Genitourinary/Nephrology No urinary frequency 12/24/2015 Dermatologic No rash 12/24/2015 Dermatologic No sores 12/24/2015 Musculoskeletal No myalgias 12/24/2015 Musculoskeletal No muscle weakness 2015 Musculoskeletal No joint complaint 2015 Psychiatric No depression 12/24/2015 Psychiatric No anxiety 12/24/2015 Respiratory No productive sputum 2015 Constitutional No recent illness 2015 Constitutional No anorexia 11/22/2015 Constitutional No night sweats 2015 Constitutional No chills 11/22/2015 Constitutional No diaphoresis 11/22/2015 Constitutional No fatigue 11/22/2015 Constitutional No fever 11/22/2015 Constitutional No insomnia 11/22/2015 Constitutional No malaise 11/22/2015 Constitutional No weight loss 11/22/2015 Constitutional No weight gain 11/22/2015 Constitutional No obesity 11/22/2015 Gastrointestinal No constipation 2015 Gastrointestinal diarrhea 11/22/2015 Gastrointestinal No nausea 11/22/2015 Gastrointestinal No vomiting 11/22/2015 Respiratory cough 11/22/2015 Respiratory No chest congestion 2015 Respiratory No chest tightness 2015 Respiratory No cigarette smoking 2015 Genitourinary/Nephrology No dysuria 11/22 Genitourinary/Nephrology urinary frequency 11/22/2015 Genitourinary/Nephrology urinary urgency 11/22/2015 Genitourinary/Nephrology urinary incontinence 11/22/2015 Genitourinary/Nephrology No urinary retention/hesitancy 11/22/2015 Eyes No vision change 11/22/2015 Ears/Nose/Throat/Neck voice change 2015 Ears/Nose/Throat/Neck No sore throat Ears/Nose/Throat/Neck No otalgia 2015 Ears/Nose/Throat/Neck No otitis media Ears/Nose/Throat/Neck No postnasal drip 11/22/2015 Ears/Nose/Throat/Neck No sinus congestion 11/22/2015 Ears/Nose/Throat/Neck hoarseness 2015 Ears/Nose/Throat/Neck No nasal allergies 11/22/2015 Ears/Nose/Throat/Neck No nasal discharge 11/22/2015 Ears/Nose/Throat/Neck No headache 2015 Eyes eyelid edema 11/22/2015 Cardiovascular No chest pain/pressure Respiratory dyspnea 11/22/2015 Respiratory dyspnea on exertion 2015 Respiratory No productive sputum 2015 Respiratory No nocturnal cough 2015 Musculoskeletal joint complaint 2015 Musculoskeletal muscle weakness 2015 Musculoskeletal arthralgia(s) 11/22/2015 Cardiovascular edema 11/22/2015 Psychiatric anxiety 11/22/2015 Psychiatric depression 11/22/2015 Dermatologic No rash 11/22/2015 Dermatologic No sores 11/22/2015 Constitutional No recent illness 2014 Constitutional No anorexia 05/13/2015 Constitutional No night sweats 2014 Constitutional No chills 05/13/2015 Constitutional No diaphoresis 05/13/2015 Constitutional No fatigue 05/13/2015 Constitutional No fever 05/13/2015 Constitutional No insomnia 05/13/2015 Constitutional No malaise 05/13/2015 Constitutional weight loss 05/13/2015 Constitutional No weight gain 05/13/2015 Eyes No eye discharge 05/13/2015 Eyes No eye erythema 05/13/2015 Ears/Nose/Throat/Neck No dizziness 2014 Ears/Nose/Throat/Neck No headache 2014 Cardiovascular No chest pain/pressure Cardiovascular No dyspnea 05/13/2015 Cardiovascular edema 05/13/2015 Respiratory No productive sputum 2014 Respiratory cough 05/13/2015 Respiratory dyspnea on exertion 2014 Gastrointestinal No abdominal pain 2014 Gastrointestinal No constipation 2014 Gastrointestinal diarrhea 05/13/2015 Genitourinary/Nephrology No dysuria 05/13 Musculoskeletal No joint complaint 2014 Dermatologic No rash 05/13/2015 Neurologic No alteration of consciousness 05/13/2015 Psychiatric No anxiety 05/13/2015 Psychiatric No depression 05/13/2015 Endocrine No dry or coarse skin 2014 Constitutional No anorexia 04/12/2014 Constitutional No night sweats 2013 Constitutional No chills 04/12/2014 Constitutional No diaphoresis 04/12/2014 Constitutional fatigue 04/12/2014 Constitutional No fever 04/12/2014 Constitutional No insomnia 04/12/2014 Constitutional No weight loss 04/12/2014 Constitutional No weight gain 04/12/2014 Eyes No eye discharge 04/12/2014 Eyes No eye erythema 04/12/2014 Ears/Nose/Throat/Neck No dizziness 2013 Ears/Nose/Throat/Neck No headache 2013 Ears/Nose/Throat/Neck No nasal allergies 04/12/2014 Ears/Nose/Throat/Neck No nasal discharge 04/12/2014 Ears/Nose/Throat/Neck No sore throat Ears/Nose/Throat/Neck No otalgia 2013 Ears/Nose/Throat/Neck No sinus congestion 04/12/2014 Respiratory No productive sputum 2013 Respiratory No chest congestion 2013 Respiratory cough 04/12/2014 Gastrointestinal No abdominal pain 2013 Gastrointestinal No constipation 2013 Gastrointestinal gastroesophageal reflux 04/12/2014 Gastrointestinal No nausea 04/12/2014 Gastrointestinal No vomiting 04/12/2014 Genitourinary/Nephrology No dysuria 04/12 Musculoskeletal stiffness 04/12/2014 Musculoskeletal No back pain 04/12/2014 Neurologic No alteration of consciousness 04/12/2014 Constitutional No recent illness 2013 Constitutional No anorexia 03/13/2014 Constitutional No night sweats 2013 Constitutional No chills 03/13/2014 Constitutional No diaphoresis 03/13/2014 Constitutional fatigue 03/13/2014 Constitutional No fever 03/13/2014 Constitutional No insomnia 03/13/2014 Constitutional No weight loss 03/13/2014 Constitutional No weight gain 03/13/2014 Eyes No eye discharge 03/13/2014 Eyes No eye erythema 03/13/2014 Ears/Nose/Throat/Neck No dizziness 2013 Ears/Nose/Throat/Neck No headache 2013 Ears/Nose/Throat/Neck No nasal allergies 03/13/2014 Ears/Nose/Throat/Neck No nasal discharge 03/13/2014 Ears/Nose/Throat/Neck No sore throat Ears/Nose/Throat/Neck No otalgia 2013 Ears/Nose/Throat/Neck No sinus congestion 03/13/2014 Respiratory No productive sputum 2013 Respiratory No chest congestion 2013 Respiratory cough 03/13/2014 Gastrointestinal No abdominal pain 2013 Gastrointestinal No constipation 2013 Gastrointestinal diarrhea 03/13/2014 Gastrointestinal gastroesophageal reflux 03/13/2014 Gastrointestinal No nausea 03/13/2014 Gastrointestinal No vomiting 03/13/2014 Genitourinary/Nephrology No dysuria 03/13 Musculoskeletal No back pain 03/13/2014 Dermatologic No rash 03/13/2014 Neurologic No alteration of consciousness 03/13/2014 Constitutional No recent illness 2013 Constitutional No anorexia 02/08/2014 Constitutional No night sweats 2013 Constitutional No chills 02/08/2014 Constitutional No diaphoresis 02/08/2014 Constitutional fatigue 02/08/2014 Constitutional No fever 02/08/2014 Constitutional No insomnia 02/08/2014 Constitutional No weight loss 02/08/2014 Constitutional No weight gain 02/08/2014 Eyes No eye discharge 02/08/2014 Eyes No eye erythema 02/08/2014 Ears/Nose/Throat/Neck No dizziness 2013 Ears/Nose/Throat/Neck No headache 2013 Ears/Nose/Throat/Neck No nasal allergies 02/08/2014 Ears/Nose/Throat/Neck No nasal discharge 02/08/2014 Ears/Nose/Throat/Neck No sore throat Ears/Nose/Throat/Neck No otalgia 2013 Ears/Nose/Throat/Neck No sinus congestion 02/08/2014 Respiratory No productive sputum 2013 Respiratory No chest congestion 2013 Respiratory cough 02/08/2014 Gastrointestinal No abdominal pain 2013 Gastrointestinal No constipation 2013 Gastrointestinal diarrhea 02/08/2014 Gastrointestinal gastroesophageal reflux 02/08/2014 Gastrointestinal No nausea 02/08/2014 Gastrointestinal No vomiting 02/08/2014 Genitourinary/Nephrology No dysuria 02/08 Musculoskeletal No back pain 02/08/2014 Dermatologic No rash 02/08/2014 Neurologic No alteration of consciousness 02/08/2014 Constitutional No recent illness 2012 Constitutional No anorexia 10/10/2013 Constitutional No night sweats 2012 Constitutional No chills 10/10/2013 Constitutional No diaphoresis 10/10/2013 Constitutional fatigue 10/10/2013 Constitutional No fever 10/10/2013 Constitutional No insomnia 10/10/2013 Constitutional No weight loss 10/10/2013 Constitutional No weight gain 10/10/2013 Eyes No eye discharge 10/10/2013 Eyes No eye erythema 10/10/2013 Ears/Nose/Throat/Neck No dizziness 2012 Ears/Nose/Throat/Neck No headache 2012 Ears/Nose/Throat/Neck No nasal allergies 10/10/2013 Ears/Nose/Throat/Neck No nasal discharge 10/10/2013 Ears/Nose/Throat/Neck No sore throat Ears/Nose/Throat/Neck No otalgia 2012 Ears/Nose/Throat/Neck No sinus congestion 10/10/2013 Respiratory No productive sputum 2012 Respiratory No chest congestion 2012 Respiratory cough 10/10/2013 Gastrointestinal No abdominal pain 2012 Gastrointestinal No constipation 2012 Gastrointestinal diarrhea 10/10/2013 Gastrointestinal gastroesophageal reflux 10/10/2013 Gastrointestinal No nausea 10/10/2013 Gastrointestinal No vomiting 10/10/2013 Genitourinary/Nephrology No dysuria 10/10 Musculoskeletal No back pain 10/10/2013 Neurologic No alteration of consciousness 10/10/2013 Musculoskeletal stiffness 10/10/2013 Constitutional No recent illness 2012 Constitutional No anorexia 03/29/2013 Constitutional No night sweats 2012 Constitutional No chills 03/29/2013 Constitutional No diaphoresis 03/29/2013 Constitutional fatigue 03/29/2013 Constitutional No fever 03/29/2013 Constitutional No insomnia 03/29/2013 Constitutional No weight loss 03/29/2013 Constitutional No weight gain 03/29/2013 Eyes No eye discharge 03/29/2013 Eyes No eye erythema 03/29/2013 Ears/Nose/Throat/Neck No dizziness 2012 Ears/Nose/Throat/Neck No headache 2012 Ears/Nose/Throat/Neck No nasal allergies 03/29/2013 Ears/Nose/Throat/Neck No nasal discharge 03/29/2013 Ears/Nose/Throat/Neck No otalgia 2012 Ears/Nose/Throat/Neck No sinus congestion 03/29/2013 Ears/Nose/Throat/Neck No sore throat 02/2013 Respiratory No productive sputum 2012 Respiratory No chest congestion 2012 Respiratory cough 03/29/2013 Gastrointestinal No abdominal pain 2012 Gastrointestinal No constipation 2012 Gastrointestinal diarrhea 03/29/2013 Gastrointestinal gastroesophageal reflux 03/29/2013 Gastrointestinal No nausea 03/29/2013 Gastrointestinal No vomiting 03/29/2013 Genitourinary/Nephrology No dysuria 03/29 Musculoskeletal No back pain 03/29/2013 Dermatologic No rash 03/29/2013 Neurologic No alteration of consciousness 03/29/2013 Constitutional No recent illness 2012 Constitutional No anorexia 11/28/2012 Constitutional No night sweats 2012 Constitutional No chills 11/28/2012 Constitutional No diaphoresis 11/28/2012 Constitutional No fatigue 11/28/2012 Constitutional No fever 11/28/2012 Constitutional No insomnia 11/28/2012 Constitutional No weight loss 11/28/2012 Constitutional No weight gain 11/28/2012 Cardiovascular No chest pain/pressure 01/2013 Cardiovascular No edema 11/28/2012 Cardiovascular No near-syncope/dizziness 11/28/2012 Cardiovascular No syncope 11/28/2012 Respiratory No productive sputum 2012 Respiratory No chest congestion 2012 Respiratory No chest tightness 2012 Respiratory No cough 11/28/2012 Respiratory No dyspnea 11/28/2012 Musculoskeletal No back pain 11/28/2012 Musculoskeletal No joint complaint 2012 Neurologic No alteration of consciousness 11/28/2012 Constitutional No recent illness 2011 Constitutional No anorexia 05/31/2012 Constitutional No night sweats 2011 Constitutional No chills 05/31/2012 Constitutional No diaphoresis 05/31/2012 Constitutional No fatigue 05/31/2012 Musculoskeletal No back pain 05/31/2012 Dermatologic No rash 05/31/2012 Neurologic No alteration of consciousness 05/31/2012 Cardiovascular No chest pain/pressure 04/2012 Cardiovascular No edema 05/31/2012 Cardiovascular No near-syncope/dizziness 05/31/2012 Cardiovascular No syncope 05/31/2012 Respiratory No chest tightness 2011 Respiratory No dyspnea 05/31/2012 Genitourinary/Nephrology No breast complaint 05/31/2012 Genitourinary/Nephrology No hematuria 04/2012 Genitourinary/Nephrology No urinary frequency 05/31/2012 Genitourinary/Nephrology No urinary incontinence 05/31/2012 Genitourinary/Nephrology No urinary urgency 05/31/2012 Genitourinary/Nephrology No vaginal discharge 05/31/2012 Genitourinary/Nephrology No menopausal symptoms 05/31/2012 Genitourinary/Nephrology No nocturia 04/2012 Genitourinary/Nephrology No Pap smear abnormality 05/31/2012 Musculoskeletal No joint complaint 2011 Constitutional No fever 05/31/2012 Constitutional No insomnia 05/31/2012 Constitutional No weight loss 05/31/2012 Constitutional No weight gain 05/31/2012 Eyes No eye discharge 05/31/2012 Eyes No eye erythema 05/31/2012 Ears/Nose/Throat/Neck No dizziness 2011 Ears/Nose/Throat/Neck No headache 2011 Ears/Nose/Throat/Neck No nasal allergies 05/31/2012 Ears/Nose/Throat/Neck No nasal discharge 05/31/2012 Ears/Nose/Throat/Neck No otalgia 2011 Ears/Nose/Throat/Neck No sinus congestion 05/31/2012 Ears/Nose/Throat/Neck No sore throat 04/2012 Respiratory No productive sputum 2011 Respiratory No chest congestion 2011 Respiratory No cough 05/31/2012 Gastrointestinal No abdominal pain 2011 Gastrointestinal No constipation 2011 Gastrointestinal No diarrhea 05/31/2012 Gastrointestinal gastroesophageal reflux 05/31/2012 Gastrointestinal No nausea 05/31/2012 Gastrointestinal No vomiting 05/31/2012 Genitourinary/Nephrology No dysuria 05/31 Constitutional No recent illness 2011 Constitutional No anorexia 03/01/2012 Constitutional No night sweats 2011 Constitutional No chills 03/01/2012 Constitutional No diaphoresis 03/01/2012 Constitutional fatigue 03/01/2012 Constitutional No fever 03/01/2012 Constitutional No insomnia 03/01/2012 Constitutional No weight loss 03/01/2012 Constitutional No weight gain 03/01/2012 Eyes No eye discharge 03/01/2012 Eyes No eye erythema 03/01/2012 Ears/Nose/Throat/Neck No dizziness 2011 Ears/Nose/Throat/Neck No headache 2011 Ears/Nose/Throat/Neck No nasal discharge 03/01/2012 Ears/Nose/Throat/Neck No nasal allergies 03/01/2012 Ears/Nose/Throat/Neck No otalgia 2011 Ears/Nose/Throat/Neck No sinus congestion 03/01/2012 Ears/Nose/Throat/Neck No sore throat 05/2012 Respiratory No productive sputum 2011 Respiratory No chest congestion 2011 Respiratory cough 03/01/2012 Gastrointestinal No abdominal pain 2011 Gastrointestinal No constipation 2011 Gastrointestinal diarrhea 03/01/2012 Gastrointestinal gastroesophageal reflux 03/01/2012 Gastrointestinal No nausea 03/01/2012 Gastrointestinal No vomiting 03/01/2012 Genitourinary/Nephrology No dysuria 03/01 Dermatologic No rash 03/01/2012 Neurologic No alteration of consciousness 03/01/2012 Musculoskeletal No back pain 03/01/2012 Constitutional No recent illness 2011 Constitutional No anorexia 02/02/2012 Constitutional No chills 02/02/2012 Constitutional No diaphoresis 02/02/2012 Constitutional fatigue 02/02/2012 Constitutional No fever 02/02/2012 Constitutional No insomnia 02/02/2012 Eyes No eye discharge 02/02/2012 Eyes No eye erythema 02/02/2012 Ears/Nose/Throat/Neck No dizziness 2011 Ears/Nose/Throat/Neck No hoarseness 02/01 Ears/Nose/Throat/Neck No nasal allergies 02/02/2012 Ears/Nose/Throat/Neck No nasal discharge 02/02/2012 Ears/Nose/Throat/Neck No sore throat 07/2012 Ears/Nose/Throat/Neck No sinus congestion 02/02/2012 Cardiovascular No chest pain/pressure 07/2012 Cardiovascular No edema 02/02/2012 Respiratory No productive sputum 2011 Respiratory No chest congestion 2011 Respiratory No cough 02/02/2012 Gastrointestinal No abdominal pain 2011 Gastrointestinal No constipation 2011 Gastrointestinal diarrhea 02/02/2012 Gastrointestinal No vomiting 02/02/2012 Gastrointestinal No nausea 02/02/2012 Genitourinary/Nephrology No dysuria 02/01 Dermatologic No rash 02/02/2012 Dermatologic sores 02/02/2012 Neurologic No alteration of consciousness 02/02/2012 Neurologic No gait abnormality 2011 Psychiatric No anxiety 02/02/2012 Psychiatric No depression 02/02/2012 Psychiatric No suicidality 02/02/2012 Musculoskeletal stiffness 02/02/2012 Physical Exam Exam Name System Name Item Name Status Result Effective Dates Notes Full Exam - General 1994 Constitutional general appearance Overall: well developed 09/08/2018 None Full Exam - General 1994 Constitutional general appearance Overall: in no acute distress 09/08/2018 None Full Exam - General 1994 Constitutional general appearance Overall: well nourished 09/08/2018 None Full Exam - General 1994 Eyes conjunctiva /eyelids Overall: conjunctiva clear 09/08/2018 None Full Exam - General 1994 Eyes conjunctiva /eyelids Overall: cornea clear 09/08/2018 None Full Exam - General 1994 Eyes conjunctiva /eyelids Overall: eyelids normal 09/08/2018 None Full Exam - General 1994 Ears/Nose/Throat lips/teeth/gingiva Overall: benign lips 09/08/2018 None Full Exam - General 1994 Ears/Nose/Throat lips/teeth/gingiva Teeth: wears partial plate 09/08/2018 None Full Exam - General 1994 Ears/Nose/Throat oral cavity/pharynx/larynx Overall: oral mucosa clear 09/08/2018 None Full Exam - General 1994 Respiratory auscultation Diffuse: diminished 09/08/2018 None Full Exam - General 1994 Respiratory respiratory effort/rhythm Overall: no retractions 09/08/2018 None Full Exam - General 1994 Respiratory respiratory effort/rhythm Overall: normal rate 09/08/2018 None Full Exam - General 1994 Cardiovascular auscultation of heart Overall: regular rate 09/08/2018 None Full Exam - General 1994 Cardiovascular auscultation of heart Overall: normal heart sounds 09/08/2018 None Full Exam - General 1994 Musculoskeletal gait and station Overall: normal gait 09/08/2018 None Full Exam - General 1994 Musculoskeletal gait and station Overall: normal station 09/08/2018 None Full Exam - General 1994 Musculoskeletal head and neck Overall: head atraumatic 09/08/2018 None Full Exam - General 1994 Neurologic cranial nerves Overall: crainial nerves 2 - 12 grossly intact 09/08/2018 None Full Exam - General 1994 Psychiatric orientation/consciousness Overall: oriented to person, place and time 09/08/2018 None Full Exam - General 1994 Psychiatric mood and affect Overall: normal mood and affect 09/08/2018 None Full Exam - General 1994 Psychiatric appearance Overall: well-groomed, good eye contact 09/08/2018 None Full Exam - General 1994 Psychiatric speech Quality: dysphonia 09/08/2018 None Full Exam - General 1994 Respiratory auscultation Lower lung field: crackles 09/08/2018 None Full Exam - General 1994 Abdomen abdominal exam Overall: no tenderness 09/08/2018 None Full Exam - General 1994 Abdomen abdominal exam Overall: normal bowel sounds 09/08/2018 None Full Exam - General 1994 Constitutional general appearance Development: well developed 01/13/2018 None Full Exam - General 1994 Constitutional general appearance Development: appears stated age 0301/13/2018 None Full Exam - General 1994 Eyes conjunctiva /eyelids Overall: conjunctiva clear 01/13/2018 None Full Exam - General 1994 Eyes conjunctiva /eyelids Overall: cornea clear 01/13/2018 None Full Exam - General 1994 Eyes conjunctiva /eyelids Overall: eyelids normal 01/13/2018 None Full Exam - General 1994 Eyes pupils and irises Overall: pupils equal, round, reactive to light and accomodation 01/13/2018 None Full Exam - General 1994 Ears/Nose/Throat otoscopic exam Overall: tympanic membranes clear 01/13/2018 None Full Exam - General 1994 Ears/Nose/Throat otoscopic exam External auditory canal: erythematous 01/13/2018 None Full Exam - General 1994 Ears/Nose/Throat otoscopic exam External auditory canal: edematous 01/13/2018 None Full Exam - General 1994 Ears/Nose/Throat lips/teeth/gingiva Overall: benign lips 01/13/2018 None Full Exam - General 1994 Ears/Nose/Throat lips/teeth/gingiva Teeth: wears partial plate 01/13/2018 None Full Exam - General 1994 Ears/Nose/Throat oral cavity/pharynx/larynx Overall: oral mucosa clear 01/13/2018 None Full Exam - General 1994 Neck thyroid Overall: normal size None Full Exam - General 1994 Neck thyroid Overall: normal consistency 01/13/2018 None Full Exam - General 1994 Neck inspection of neck Overall: normal size 01/13/2018 None Full Exam - General 1994 Neck inspection of neck Overall: normal appearance 01/13/2018 None Full Exam - General 1994 Respiratory respiratory effort/rhythm Overall: no retractions 01/13/2018 None Full Exam - General 1994 Respiratory respiratory effort/rhythm Overall: normal rate 01/13/2018 None Full Exam - General 1994 Cardiovascular auscultation of heart Overall: regular rate 01/13/2018 None Full Exam - General 1994 Cardiovascular auscultation of heart Overall: normal heart sounds 01/13/2018 None Full Exam - General 1994 Cardiovascular auscultation of heart Overall: no murmurs 01/13/2018 None Full Exam - General 1994 Abdomen abdominal exam Overall: no tenderness 01/13/2018 None Full Exam - General 1994 Abdomen abdominal exam Overall: normal bowel sounds 01/13/2018 None Full Exam - General 1994 Lymphatic neck nodes Overall: anterior cervical chain benign 01/13/2018 None Full Exam - General 1994 Lymphatic neck nodes Overall: posterior cervical chain benign 01/13/2018 None Full Exam - General 1994 Musculoskeletal gait and station Overall: normal gait 01/13/2018 None Full Exam - General 1994 Musculoskeletal gait and station Overall: normal station 01/13/2018 None Full Exam - General 1994 Musculoskeletal head and neck Overall: head atraumatic 01/13/2018 None Full Exam - General 1994 Musculoskeletal head and neck Overall: cervical spine benign 01/13/2018 None Full Exam - General 1994 Integument inspection of skin Dermatitis: erythema 01/13/2018 None Full Exam - General 1994 Integument inspection of skin Dermatitis: excoriation 01/13/2018 None Full Exam - General 1994 Integument inspection of skin Location: face 01/13/2018 right forehead and nose Full Exam - General 1994 Neurologic mental status Overall: alert 01/13/2018 None Full Exam - General 1994 Neurologic mental status Overall: oriented 01/13/2018 None Full Exam - General 1994 Neurologic gait Overall: no ataxia, no unsteadiness 01/13/2018 None Full Exam - General 1994 Neurologic motor Overall: normal bulk, tone 01/13/2018 None Full Exam - General 1994 Psychiatric orientation/consciousness Overall: oriented to person, place and time 01/13/2018 None Full Exam - General 1994 Psychiatric mood and affect Overall: normal mood and affect 01/13/2018 None Full Exam - General 1994 Psychiatric appearance Overall: well-groomed, good eye contact 01/13/2018 None Full Exam - General 1994 Psychiatric speech Quality: dysphonia 01/13/2018 None Full Exam - General 1994 Respiratory auscultation Lower lung field: crackles 01/13/2018 None Full Exam - General 1994 Eyes conjunctiva /eyelids Overall: conjunctiva clear 12/01/2017 None Full Exam - General 1994 Eyes conjunctiva /eyelids Overall: cornea clear 12/01/2017 None Full Exam - General 1994 Eyes conjunctiva /eyelids Overall: eyelids normal 12/01/2017 None Full Exam - General 1994 Ears/Nose/Throat lips/teeth/gingiva Overall: benign lips 12/01/2017 None Full Exam - General 1994 Ears/Nose/Throat lips/teeth/gingiva Teeth: wears partial plate 12/01/2017 None Full Exam - General 1994 Ears/Nose/Throat oral cavity/pharynx/larynx Overall: oral mucosa clear 12/01/2017 None Full Exam - General 1994 Respiratory respiratory effort/rhythm Overall: no retractions 12/01/2017 None Full Exam - General 1994 Respiratory respiratory effort/rhythm Overall: normal rate 12/01/2017 None Full Exam - General 1994 Cardiovascular auscultation of heart Overall: regular rate 12/01/2017 None Full Exam - General 1994 Cardiovascular auscultation of heart Overall: normal heart sounds 12/01/2017 None Full Exam - General 1994 Musculoskeletal gait and station Overall: normal gait 12/01/2017 None Full Exam - General 1994 Musculoskeletal gait and station Overall: normal station 12/01/2017 None Full Exam - General 1994 Musculoskeletal head and neck Overall: head atraumatic 12/01/2017 None Full Exam - General 1994 Psychiatric orientation/consciousness Overall: oriented to person, place and time 12/01/2017 None Full Exam - General 1994 Psychiatric mood and affect Overall: normal mood and affect 12/01/2017 None Full Exam - General 1994 Psychiatric appearance Overall: well-groomed, good eye contact 12/01/2017 None Full Exam - General 1994 Psychiatric speech Quality: dysphonia 12/01/2017 None Full Exam - General 1994 Constitutional general appearance Overall: well developed 12/01/2017 None Full Exam - General 1994 Constitutional general appearance Overall: in no acute distress 12/01/2017 None Full Exam - General 1994 Constitutional general appearance Overall: well nourished 12/01/2017 None Full Exam - General 1994 Respiratory auscultation Diffuse: diminished 12/01/2017 None Full Exam - General 1994 Neurologic cranial nerves Overall: crainial nerves 2 - 12 grossly intact 12/01/2017 None Full Exam - General 1994 Constitutional general appearance Overall: well developed 09/29/2017 None Full Exam - General 1994 Constitutional general appearance Overall: in no acute distress 09/29/2017 None Full Exam - General 1994 Constitutional general appearance Overall: well nourished 09/29/2017 None Full Exam - General 1994 Eyes conjunctiva /eyelids Overall: conjunctiva clear 09/29/2017 None Full Exam - General 1994 Eyes conjunctiva /eyelids Overall: eyelids normal 09/29/2017 None Full Exam - General 1994 Ears/Nose/Throat lips/teeth/gingiva Overall: benign lips 09/29/2017 None Full Exam - General 1994 Respiratory respiratory effort/rhythm Overall: no retractions 09/29/2017 None Full Exam - General 1994 Respiratory respiratory effort/rhythm Overall: normal rate 09/29/2017 None Full Exam - General 1994 Musculoskeletal head and neck Overall: head atraumatic 09/29/2017 None Full Exam - General 1994 Neurologic cranial nerves Overall: crainial nerves 2 - 12 grossly intact 09/29/2017 None Full Exam - General 1994 Psychiatric orientation/consciousness Overall: oriented to person, place and time 09/29/2017 None Full Exam - General 1994 Psychiatric mood and affect Overall: normal mood and affect 09/29/2017 None Full Exam - General 1994 Psychiatric appearance Overall: well-groomed, good eye contact 09/29/2017 None Full Exam - General 1994 Constitutional general appearance Development: well developed 02/19/2017 None Full Exam - General 1994 Constitutional general appearance Development: appears stated age 0402/19/2017 None Full Exam - General 1994 Eyes conjunctiva /eyelids Overall: conjunctiva clear 02/19/2017 None Full Exam - General 1994 Eyes conjunctiva /eyelids Overall: cornea clear 02/19/2017 None Full Exam - General 1994 Eyes conjunctiva /eyelids Overall: eyelids normal 02/19/2017 None Full Exam - General 1994 Eyes pupils and irises Overall: pupils equal, round, reactive to light and accomodation 02/19/2017 None Full Exam - General 1994 Ears/Nose/Throat otoscopic exam Overall: tympanic membranes clear 02/19/2017 None Full Exam - General 1994 Ears/Nose/Throat otoscopic exam External auditory canal: erythematous 02/19/2017 None Full Exam - General 1994 Ears/Nose/Throat otoscopic exam External auditory canal: edematous 02/19/2017 None Full Exam - General 1994 Ears/Nose/Throat lips/teeth/gingiva Overall: benign lips 02/19/2017 None Full Exam - General 1994 Ears/Nose/Throat lips/teeth/gingiva Teeth: wears partial plate 02/19/2017 None Full Exam - General 1994 Ears/Nose/Throat oral cavity/pharynx/larynx Overall: oral mucosa clear 02/19/2017 None Full Exam - General 1994 Neck thyroid Overall: normal size None Full Exam - General 1994 Neck thyroid Overall: normal consistency 02/19/2017 None Full Exam - General 1994 Neck inspection of neck Overall: normal size 02/19/2017 None Full Exam - General 1994 Neck inspection of neck Overall: normal appearance 02/19/2017 None Full Exam - General 1994 Respiratory auscultation Diffuse: crackles 02/19/2017 None Full Exam - General 1994 Respiratory respiratory effort/rhythm Overall: no retractions 02/19/2017 None Full Exam - General 1994 Respiratory respiratory effort/rhythm Overall: normal rate 02/19/2017 None Full Exam - General 1994 Cardiovascular auscultation of heart Overall: regular rate 02/19/2017 None Full Exam - General 1994 Cardiovascular auscultation of heart Overall: no murmurs 02/19/2017 None Full Exam - General 1994 Cardiovascular auscultation of heart Overall: normal heart sounds 02/19/2017 None Full Exam - General 1994 Abdomen abdominal exam Overall: no tenderness 02/19/2017 None Full Exam - General 1994 Abdomen abdominal exam Overall: normal bowel sounds 02/19/2017 None Full Exam - General 1994 Lymphatic neck nodes Overall: anterior cervical chain benign 02/19/2017 None Full Exam - General 1994 Lymphatic neck nodes Overall: posterior cervical chain benign 02/19/2017 None Full Exam - General 1994 Musculoskeletal gait and station Overall: normal gait 02/19/2017 None Full Exam - General 1994 Musculoskeletal gait and station Overall: normal station 02/19/2017 None Full Exam - General 1994 Musculoskeletal head and neck Overall: head atraumatic 02/19/2017 None Full Exam - General 1994 Musculoskeletal head and neck Overall: cervical spine benign 02/19/2017 None Full Exam - General 1994 Integument inspection of skin Dermatitis: erythema 02/19/2017 None Full Exam - General 1994 Integument inspection of skin Dermatitis: excoriation 02/19/2017 None Full Exam - General 1994 Integument inspection of skin Location: face 02/19/2017 right forehead and nose Full Exam - General 1994 Neurologic mental status Overall: alert 02/19/2017 None Full Exam - General 1994 Neurologic mental status Overall: oriented 02/19/2017 None Full Exam - General 1994 Neurologic gait Overall: no ataxia, no unsteadiness 02/19/2017 None Full Exam - General 1994 Neurologic motor Overall: normal bulk, tone 02/19/2017 None Full Exam - General 1994 Psychiatric orientation/consciousness Overall: oriented to person, place and time 02/19/2017 None Full Exam - General 1994 Psychiatric mood and affect Overall: normal mood and affect 02/19/2017 None Full Exam - General 1994 Psychiatric appearance Overall: well-groomed, good eye contact 02/19/2017 None Full Exam - General 1994 Psychiatric speech Quality: dysphonia 02/19/2017 None Full Exam - General 1994 Constitutional general appearance Overall: well developed 10/30/2016 None Full Exam - General 1994 Constitutional general appearance Overall: in no acute distress 10/30/2016 None Full Exam - General 1994 Constitutional general appearance Overall: well nourished 10/30/2016 None Full Exam - General 1994 Eyes conjunctiva /eyelids Overall: conjunctiva clear 10/30/2016 None Full Exam - General 1994 Eyes conjunctiva /eyelids Overall: cornea clear 10/30/2016 None Full Exam - General 1994 Eyes conjunctiva /eyelids Overall: eyelids normal 10/30/2016 None Full Exam - General 1994 Eyes pupils and irises Overall: pupils equal, round, reactive to light and accomodation 10/30/2016 None Full Exam - General 1994 Ears/Nose/Throat otoscopic exam Overall: external auditory canals clear 10/30/2016 None Full Exam - General 1994 Ears/Nose/Throat otoscopic exam Overall: tympanic membranes clear 10/30/2016 None Full Exam - General 1994 Ears/Nose/Throat oral cavity/pharynx/larynx Overall: oral mucosa clear 10/30/2016 None Full Exam - General 1994 Ears/Nose/Throat oral cavity/pharynx/larynx Overall: oropharyngeal mucosa clear 10/30/2016 None Full Exam - General 1994 Ears/Nose/Throat oral cavity/pharynx/larynx Overall: no masses 10/30/2016 None Full Exam - General 1994 Respiratory auscultation Lower lung field: crackles 10/30/2016 None Full Exam - General 1994 Respiratory respiratory effort/rhythm Overall: no retractions 10/30/2016 None Full Exam - General 1994 Respiratory respiratory effort/rhythm Overall: normal rate 10/30/2016 None Full Exam - General 1994 Cardiovascular extremities Overall: no clubbing 10/30/2016 None Full Exam - General 1994 Cardiovascular auscultation of heart Overall: regular rate 10/30/2016 None Full Exam - General 1994 Cardiovascular auscultation of heart Overall: normal heart sounds 10/30/2016 None Full Exam - General 1994 Cardiovascular auscultation of heart Overall: no murmurs 10/30/2016 None Full Exam - General 1994 Abdomen abdominal exam Overall: no tenderness 10/30/2016 None Full Exam - General 1994 Abdomen abdominal exam Overall: normal bowel sounds 10/30/2016 None Full Exam - General 1994 Musculoskeletal gait and station Overall: normal gait 10/30/2016 None Full Exam - General 1994 Musculoskeletal gait and station Overall: normal station 10/30/2016 None Full Exam - General 1994 Neurologic deep tendon reflexes Overall: deep tendon reflexes intact 10/30/2016 None Full Exam - General 1994 Neurologic cranial nerves Overall: crainial nerves 2 - 12 grossly intact 10/30/2016 None Full Exam - General 1994 Psychiatric orientation/consciousness Overall: oriented to person, place and time 10/30/2016 None Full Exam - General 1994 Constitutional general appearance Overall: well developed 09/23/2016 None Full Exam - General 1994 Constitutional general appearance Overall: in no acute distress 09/23/2016 None Full Exam - General 1994 Constitutional general appearance Overall: well nourished 09/23/2016 None Full Exam - General 1994 Eyes conjunctiva /eyelids Overall: conjunctiva clear 09/23/2016 None Full Exam - General 1994 Eyes conjunctiva /eyelids Overall: cornea clear 09/23/2016 None Full Exam - General 1994 Eyes conjunctiva /eyelids Overall: eyelids normal 09/23/2016 None Full Exam - General 1994 Eyes pupils and irises Overall: pupils equal, round, reactive to light and accomodation 09/23/2016 None Full Exam - General 1994 Ears/Nose/Throat otoscopic exam Overall: external auditory canals clear 09/23/2016 None Full Exam - General 1994 Ears/Nose/Throat otoscopic exam Overall: tympanic membranes clear 09/23/2016 None Full Exam - General 1994 Ears/Nose/Throat oral cavity/pharynx/larynx Overall: oral mucosa clear 09/23/2016 None Full Exam - General 1994 Ears/Nose/Throat oral cavity/pharynx/larynx Overall: oropharyngeal mucosa clear 09/23/2016 None Full Exam - General 1994 Ears/Nose/Throat oral cavity/pharynx/larynx Overall: no masses 09/23/2016 None Full Exam - General 1994 Respiratory respiratory effort/rhythm Overall: no retractions 09/23/2016 None Full Exam - General 1994 Respiratory respiratory effort/rhythm Overall: normal rate 09/23/2016 None Full Exam - General 1994 Cardiovascular extremities Overall: no clubbing 09/23/2016 None Full Exam - General 1994 Cardiovascular auscultation of heart Overall: regular rate 09/23/2016 None Full Exam - General 1994 Cardiovascular auscultation of heart Overall: normal heart sounds 09/23/2016 None Full Exam - General 1994 Abdomen abdominal exam Overall: no tenderness 09/23/2016 None Full Exam - General 1994 Abdomen abdominal exam Overall: normal bowel sounds 09/23/2016 None Full Exam - General 1994 Musculoskeletal gait and station Overall: normal gait 09/23/2016 None Full Exam - General 1994 Musculoskeletal gait and station Overall: normal station 09/23/2016 None Full Exam - General 1994 Neurologic cranial nerves Overall: crainial nerves 2 - 12 grossly intact 09/23/2016 None Full Exam - General 1994 Psychiatric orientation/consciousness Overall: oriented to person, place and time 09/23/2016 None Full Exam - General 1994 Ears/Nose/Throat lips/teeth/gingiva Overall: benign lips 09/23/2016 None Full Exam - General 1994 Respiratory auscultation Diffuse: diminished 09/23/2016 None Full Exam - General 1994 Psychiatric mood and affect Overall: normal mood and affect 09/23/2016 None Full Exam - General 1994 Psychiatric appearance Overall: well-groomed, good eye contact 09/23/2016 None Full Exam - General 1994 Constitutional general appearance Overall: well developed 07/02/2016 None Full Exam - General 1994 Constitutional general appearance Overall: in no acute distress 07/02/2016 None Full Exam - General 1994 Constitutional general appearance Overall: well nourished 07/02/2016 None Full Exam - General 1994 Eyes conjunctiva /eyelids Overall: conjunctiva clear 07/02/2016 None Full Exam - General 1994 Eyes conjunctiva /eyelids Overall: cornea clear 07/02/2016 None Full Exam - General 1994 Eyes conjunctiva /eyelids Overall: eyelids normal 07/02/2016 None Full Exam - General 1994 Eyes pupils and irises Overall: pupils equal, round, reactive to light and accomodation 07/02/2016 None Full Exam - General 1994 Ears/Nose/Throat otoscopic exam Overall: external auditory canals clear 07/02/2016 None Full Exam - General 1994 Ears/Nose/Throat otoscopic exam Overall: tympanic membranes clear 07/02/2016 None Full Exam - General 1994 Ears/Nose/Throat oral cavity/pharynx/larynx Overall: oral mucosa clear 07/02/2016 None Full Exam - General 1994 Ears/Nose/Throat oral cavity/pharynx/larynx Overall: oropharyngeal mucosa clear 07/02/2016 None Full Exam - General 1994 Ears/Nose/Throat oral cavity/pharynx/larynx Overall: no masses 07/02/2016 None Full Exam - General 1994 Respiratory auscultation Lower lung field: crackles 07/02/2016 None Full Exam - General 1994 Respiratory respiratory effort/rhythm Overall: no retractions 07/02/2016 None Full Exam - General 1994 Respiratory respiratory effort/rhythm Overall: normal rate 07/02/2016 None Full Exam - General 1994 Cardiovascular extremities Overall: no clubbing 07/02/2016 None Full Exam - General 1994 Cardiovascular auscultation of heart Overall: regular rate 07/02/2016 None Full Exam - General 1994 Cardiovascular auscultation of heart Overall: normal heart sounds 07/02/2016 None Full Exam - General 1994 Cardiovascular auscultation of heart Overall: no murmurs 07/02/2016 None Full Exam - General 1994 Abdomen abdominal exam Overall: no tenderness 07/02/2016 None Full Exam - General 1994 Abdomen abdominal exam Overall: normal bowel sounds 07/02/2016 None Full Exam - General 1994 Musculoskeletal gait and station Overall: normal gait 07/02/2016 None Full Exam - General 1994 Musculoskeletal gait and station Overall: normal station 07/02/2016 None Full Exam - General 1994 Neurologic deep tendon reflexes Overall: deep tendon reflexes intact 07/02/2016 None Full Exam - General 1994 Neurologic cranial nerves Overall: crainial nerves 2 - 12 grossly intact 07/02/2016 None Full Exam - General 1994 Psychiatric orientation/consciousness Overall: oriented to person, place and time 07/02/2016 None Full Exam - General 1994 Constitutional general appearance Overall: well developed 03/26/2016 None Full Exam - General 1994 Constitutional general appearance Overall: in no acute distress 03/26/2016 None Full Exam - General 1994 Constitutional general appearance Overall: well nourished 03/26/2016 None Full Exam - General 1994 Eyes conjunctiva /eyelids Overall: conjunctiva clear 03/26/2016 None Full Exam - General 1994 Eyes conjunctiva /eyelids Overall: cornea clear 03/26/2016 None Full Exam - General 1994 Eyes conjunctiva /eyelids Overall: eyelids normal 03/26/2016 None Full Exam - General 1994 Eyes pupils and irises Overall: pupils equal, round, reactive to light and accomodation 03/26/2016 None Full Exam - General 1994 Ears/Nose/Throat otoscopic exam Overall: external auditory canals clear 03/26/2016 None Full Exam - General 1994 Ears/Nose/Throat otoscopic exam Overall: tympanic membranes clear 03/26/2016 None Full Exam - General 1994 Ears/Nose/Throat oral cavity/pharynx/larynx Overall: oral mucosa clear 03/26/2016 None Full Exam - General 1994 Ears/Nose/Throat oral cavity/pharynx/larynx Overall: oropharyngeal mucosa clear 03/26/2016 None Full Exam - General 1994 Ears/Nose/Throat oral cavity/pharynx/larynx Overall: no masses 03/26/2016 None Full Exam - General 1994 Respiratory auscultation Lower lung field: crackles 03/26/2016 None Full Exam - General 1994 Respiratory respiratory effort/rhythm Overall: no retractions 03/26/2016 None Full Exam - General 1994 Respiratory respiratory effort/rhythm Overall: normal rate 03/26/2016 None Full Exam - General 1994 Cardiovascular extremities Overall: no clubbing 03/26/2016 None Full Exam - General 1994 Cardiovascular auscultation of heart Overall: regular rate 03/26/2016 None Full Exam - General 1994 Cardiovascular auscultation of heart Overall: normal heart sounds 03/26/2016 None Full Exam - General 1994 Cardiovascular auscultation of heart Overall: no murmurs 03/26/2016 None Full Exam - General 1994 Abdomen abdominal exam Overall: no tenderness 03/26/2016 None Full Exam - General 1994 Abdomen abdominal exam Overall: normal bowel sounds 03/26/2016 None Full Exam - General 1994 Musculoskeletal gait and station Overall: normal gait 03/26/2016 None Full Exam - General 1994 Musculoskeletal gait and station Overall: normal station 03/26/2016 None Full Exam - General 1994 Neurologic deep tendon reflexes Overall: deep tendon reflexes intact 03/26/2016 None Full Exam - General 1994 Neurologic cranial nerves Overall: crainial nerves 2 - 12 grossly intact 03/26/2016 None Full Exam - General 1994 Psychiatric orientation/consciousness Overall: oriented to person, place and time 03/26/2016 None Full Exam - General 1994 Constitutional general appearance Overall: well nourished 12/24/2015 None Full Exam - General 1994 Constitutional general appearance Overall: well developed 12/24/2015 None Full Exam - General 1994 Constitutional general appearance Overall: in no acute distress 12/24/2015 None Full Exam - General 1994 Eyes pupils and irises Overall: pupils equal, round, reactive to light and accomodation 12/24/2015 None Full Exam - General 1994 Eyes conjunctiva /eyelids Eyelid: edema 12/24/2015 None Full Exam - General 1994 Eyes conjunctiva /eyelids Overall: cornea clear 12/24/2015 None Full Exam - General 1994 Eyes conjunctiva /eyelids Overall: conjunctiva clear 12/24/2015 None Full Exam - General 1994 Ears/Nose/Throat oral cavity/pharynx/larynx Overall: oropharyngeal mucosa clear 12/24/2015 None Full Exam - General 1994 Ears/Nose/Throat oral cavity/pharynx/larynx Overall: no masses 12/24/2015 None Full Exam - General 1994 Ears/Nose/Throat oral cavity/pharynx/larynx Overall: oral mucosa clear 12/24/2015 None Full Exam - General 1994 Ears/Nose/Throat lips/teeth/gingiva Overall: benign gingiva 12/24/2015 None Full Exam - General 1994 Ears/Nose/Throat lips/teeth/gingiva Overall: no masses 12/24/2015 None Full Exam - General 1994 Ears/Nose/Throat lips/teeth/gingiva Overall: normal dentition 12/24/2015 None Full Exam - General 1994 Ears/Nose/Throat lips/teeth/gingiva Overall: benign lips 12/24/2015 None Full Exam - General 1994 Ears/Nose/Throat otoscopic exam Overall: tympanic membranes clear 12/24/2015 None Full Exam - General 1994 Ears/Nose/Throat otoscopic exam Overall: external auditory canals clear 12/24/2015 None Full Exam - General 1994 Cardiovascular extremities Overall: no clubbing 12/24/2015 None Full Exam - General 1994 Cardiovascular auscultation of heart Overall: regular rate 12/24/2015 None Full Exam - General 1994 Cardiovascular auscultation of heart Overall: normal heart sounds 12/24/2015 None Full Exam - General 1994 Cardiovascular auscultation of heart Overall: no murmurs 12/24/2015 None Full Exam - General 1994 Respiratory respiratory effort/rhythm Overall: normal rate 12/24/2015 None Full Exam - General 1994 Respiratory respiratory effort/rhythm Overall: no retractions 12/24/2015 None Full Exam - General 1994 Musculoskeletal gait and station Overall: normal station 12/24/2015 None Full Exam - General 1994 Musculoskeletal gait and station Overall: normal gait 12/24/2015 None Full Exam - General 1994 Integument inspection of skin Location: face 12/24/2015 right side Full Exam - General 1994 Integument inspection of skin Consistency: edema 12/24/2015 None Full Exam - General 1994 Psychiatric orientation/consciousness Overall: oriented to person, place and time 12/24/2015 None Full Exam - General 1994 Psychiatric appearance Overall: well-groomed, good eye contact 12/24/2015 None Full Exam - General 1994 Psychiatric mood and affect Overall: normal mood and affect 12/24/2015 None Full Exam - General 1994 Respiratory auscultation Diffuse: crackles 12/24/2015 None Full Exam - General 1994 Eyes pupils and irises Overall: pupils equal, round, reactive to light and accomodation 11/22/2015 None Full Exam - General 1994 Eyes conjunctiva /eyelids Eyelid: edema 11/22/2015 None Full Exam - General 1994 Eyes conjunctiva /eyelids Eyelid: periorbital edema 11/22/2015 None Full Exam - General 1994 Eyes conjunctiva /eyelids Conjunctiva: clear 11/22/2015 None Full Exam - General 1994 Eyes conjunctiva /eyelids Cornea: clear 11/22/2015 None Full Exam - General 1994 Ears/Nose/Throat oral cavity/pharynx/larynx Overall: oropharyngeal mucosa clear 11/22/2015 None Full Exam - General 1994 Ears/Nose/Throat oral cavity/pharynx/larynx Overall: no masses 11/22/2015 None Full Exam - General 1994 Ears/Nose/Throat oral cavity/pharynx/larynx Overall: oral mucosa clear 11/22/2015 None Full Exam - General 1994 Ears/Nose/Throat lips/teeth/gingiva Overall: benign gingiva 11/22/2015 None Full Exam - General 1994 Ears/Nose/Throat lips/teeth/gingiva Overall: no masses 11/22/2015 None Full Exam - General 1994 Ears/Nose/Throat lips/teeth/gingiva Overall: normal dentition 11/22/2015 None Full Exam - General 1994 Ears/Nose/Throat lips/teeth/gingiva Overall: benign lips 11/22/2015 None Full Exam - General 1994 Ears/Nose/Throat external ear Overall: no masses 11/22/2015 None Full Exam - General 1994 Ears/Nose/Throat external ear Overall: normal appearance 11/22/2015 None Full Exam - General 1994 Ears/Nose/Throat external ear Overall: normal mastoids 11/22/2015 None Full Exam - General 1994 Ears/Nose/Throat otoscopic exam Overall: tympanic membranes clear 11/22/2015 None Full Exam - General 1994 Ears/Nose/Throat otoscopic exam Overall: external auditory canals clear 11/22/2015 None Full Exam - General 1994 Respiratory respiratory effort/rhythm Overall: normal rate 11/22/2015 None Full Exam - General 1994 Respiratory respiratory effort/rhythm Overall: no retractions 11/22/2015 None Full Exam - General 1994 Respiratory auscultation Diffuse: crackles 11/22/2015 mild Full Exam - General 1994 Cardiovascular auscultation of heart Overall: regular rate 11/22/2015 None Full Exam - General 1994 Cardiovascular auscultation of heart Overall: normal heart sounds 11/22/2015 None Full Exam - General 1994 Cardiovascular auscultation of heart Overall: no murmurs 11/22/2015 None Full Exam - General 1994 Cardiovascular extremities Edema present: severity 1+ - 4 +: 1+ 11/22/2015 None Full Exam - General 1994 Cardiovascular extremities Edema present: bilateral 11/22/2015 None Full Exam - General 1994 Cardiovascular extremities Edema present: to leg 11/22/2015 None Full Exam - General 1994 Cardiovascular extremities Edema present: pitting 11/22/2015 None Full Exam - General 1994 Abdomen abdominal exam Overall: no tenderness 11/22/2015 None Full Exam - General 1994 Abdomen abdominal exam Overall: normal bowel sounds 11/22/2015 None Full Exam - General 1994 Psychiatric orientation/consciousness Overall: oriented to person, place and time 11/22/2015 None Full Exam - General 1994 Psychiatric behavior/psychomotor activity Overall: no tics, normal psychomotor activity 11/22/2015 None Full Exam - General 1994 Psychiatric appearance Overall: well-groomed, good eye contact 11/22/2015 None Full Exam - General 1994 Psychiatric mood and affect Overall: normal mood and affect 11/22/2015 None Full Exam - General 1994 Integument inspection of skin Overall: no rash, lesions 11/22/2015 None Full Exam - General 1994 Integument inspection of skin Overall: few scattered moles, no gross abnormalities 11/22/2015 None Full Exam - General 1994 Musculoskeletal head and neck Overall: cervical spine benign 11/22/2015 None Full Exam - General 1994 Musculoskeletal head and neck Overall: head atraumatic 11/22/2015 None Full Exam - General 1994 Constitutional general appearance Overall: well nourished 11/22/2015 None Full Exam - General 1994 Constitutional general appearance Overall: well developed 11/22/2015 None Full Exam - General 1994 Constitutional general appearance Overall: in no acute distress 11/22/2015 None Full Exam - General 1994 Constitutional general appearance Development: appears older than stated age 0111/22/2015 None Full Exam - General 1994 Constitutional general appearance Overall: well developed 05/13/2015 None Full Exam - General 1994 Constitutional general appearance Overall: in no acute distress 05/13/2015 None Full Exam - General 1994 Constitutional general appearance Overall: well nourished 05/13/2015 None Full Exam - General 1994 Eyes conjunctiva /eyelids Overall: conjunctiva clear 05/13/2015 None Full Exam - General 1994 Eyes conjunctiva /eyelids Overall: cornea clear 05/13/2015 None Full Exam - General 1994 Eyes conjunctiva /eyelids Overall: eyelids normal 05/13/2015 None Full Exam - General 1994 Eyes pupils and irises Overall: pupils equal, round, reactive to light and accomodation 05/13/2015 None Full Exam - General 1994 Ears/Nose/Throat otoscopic exam Overall: external auditory canals clear 05/13/2015 None Full Exam - General 1994 Ears/Nose/Throat otoscopic exam Overall: tympanic membranes clear 05/13/2015 None Full Exam - General 1994 Ears/Nose/Throat oral cavity/pharynx/larynx Overall: oral mucosa clear 05/13/2015 None Full Exam - General 1994 Ears/Nose/Throat oral cavity/pharynx/larynx Overall: oropharyngeal mucosa clear 05/13/2015 None Full Exam - General 1994 Ears/Nose/Throat oral cavity/pharynx/larynx Overall: no masses 05/13/2015 None Full Exam - General 1994 Respiratory respiratory effort/rhythm Overall: no retractions 05/13/2015 None Full Exam - General 1994 Respiratory respiratory effort/rhythm Overall: normal rate 05/13/2015 None Full Exam - General 1994 Cardiovascular extremities Overall: no clubbing 05/13/2015 None Full Exam - General 1994 Cardiovascular auscultation of heart Overall: regular rate 05/13/2015 None Full Exam - General 1994 Cardiovascular auscultation of heart Overall: normal heart sounds 05/13/2015 None Full Exam - General 1994 Cardiovascular auscultation of heart Overall: no murmurs 05/13/2015 None Full Exam - General 1994 Abdomen abdominal exam Overall: no tenderness 05/13/2015 None Full Exam - General 1994 Abdomen abdominal exam Overall: normal bowel sounds 05/13/2015 None Full Exam - General 1994 Musculoskeletal gait and station Overall: normal gait 05/13/2015 None Full Exam - General 1994 Musculoskeletal gait and station Overall: normal station 05/13/2015 None Full Exam - General 1994 Neurologic deep tendon reflexes Overall: deep tendon reflexes intact 05/13/2015 None Full Exam - General 1994 Neurologic cranial nerves Overall: crainial nerves 2 - 12 grossly intact 05/13/2015 None Full Exam - General 1994 Psychiatric orientation/consciousness Overall: oriented to person, place and time 05/13/2015 None Full Exam - General 1994 Respiratory auscultation Lower lung field: crackles 05/13/2015 None Full Exam - General 1994 Constitutional general appearance Overall: well developed 04/12/2014 None Full Exam - General 1994 Constitutional general appearance Overall: in no acute distress 04/12/2014 None Full Exam - General 1994 Constitutional general appearance Overall: well nourished 04/12/2014 None Full Exam - General 1994 Eyes conjunctiva /eyelids Overall: conjunctiva clear 04/12/2014 None Full Exam - General 1994 Eyes conjunctiva /eyelids Overall: cornea clear 04/12/2014 None Full Exam - General 1994 Eyes conjunctiva /eyelids Overall: eyelids normal 04/12/2014 None Full Exam - General 1994 Eyes pupils and irises Overall: pupils equal, round, reactive to light and accomodation 04/12/2014 None Full Exam - General 1994 Ears/Nose/Throat otoscopic exam Overall: external auditory canals clear 04/12/2014 None Full Exam - General 1994 Ears/Nose/Throat otoscopic exam Overall: tympanic membranes clear 04/12/2014 None Full Exam - General 1994 Ears/Nose/Throat oral cavity/pharynx/larynx Overall: oral mucosa clear 04/12/2014 None Full Exam - General 1994 Ears/Nose/Throat oral cavity/pharynx/larynx Overall: oropharyngeal mucosa clear 04/12/2014 None Full Exam - General 1994 Ears/Nose/Throat oral cavity/pharynx/larynx Overall: no masses 04/12/2014 None Full Exam - General 1994 Respiratory auscultation Overall: breath sounds clear bilaterally 04/12/2014 None Full Exam - General 1994 Respiratory respiratory effort/rhythm Overall: no retractions 04/12/2014 None Full Exam - General 1994 Respiratory respiratory effort/rhythm Overall: normal rate 04/12/2014 None Full Exam - General 1994 Cardiovascular extremities Overall: no clubbing 04/12/2014 None Full Exam - General 1994 Cardiovascular auscultation of heart Overall: regular rate 04/12/2014 None Full Exam - General 1994 Cardiovascular auscultation of heart Overall: normal heart sounds 04/12/2014 None Full Exam - General 1994 Cardiovascular auscultation of heart Overall: no murmurs 04/12/2014 None Full Exam - General 1994 Abdomen abdominal exam Overall: no tenderness 04/12/2014 None Full Exam - General 1994 Abdomen abdominal exam Overall: normal bowel sounds 04/12/2014 None Full Exam - General 1994 Musculoskeletal gait and station Overall: normal gait 04/12/2014 None Full Exam - General 1994 Musculoskeletal gait and station Overall: normal station 04/12/2014 None Full Exam - General 1994 Neurologic deep tendon reflexes Overall: deep tendon reflexes intact 04/12/2014 None Full Exam - General 1994 Neurologic cranial nerves Overall: crainial nerves 2 - 12 grossly intact 04/12/2014 None Full Exam - General 1994 Psychiatric orientation/consciousness Overall: oriented to person, place and time 04/12/2014 None Full Exam - General 1994 Constitutional general appearance Overall: well developed 03/13/2014 None Full Exam - General 1994 Constitutional general appearance Overall: in no acute distress 03/13/2014 None Full Exam - General 1994 Constitutional general appearance Overall: well nourished 03/13/2014 None Full Exam - General 1994 Eyes conjunctiva /eyelids Overall: conjunctiva clear 03/13/2014 None Full Exam - General 1994 Eyes conjunctiva /eyelids Overall: cornea clear 03/13/2014 None Full Exam - General 1994 Eyes conjunctiva /eyelids Overall: eyelids normal 03/13/2014 None Full Exam - General 1994 Eyes pupils and irises Overall: pupils equal, round, reactive to light and accomodation 03/13/2014 None Full Exam - General 1994 Ears/Nose/Throat otoscopic exam Overall: external auditory canals clear 03/13/2014 None Full Exam - General 1994 Ears/Nose/Throat otoscopic exam Overall: tympanic membranes clear 03/13/2014 None Full Exam - General 1994 Ears/Nose/Throat oral cavity/pharynx/larynx Overall: oral mucosa clear 03/13/2014 None Full Exam - General 1994 Ears/Nose/Throat oral cavity/pharynx/larynx Overall: oropharyngeal mucosa clear 03/13/2014 None Full Exam - General 1994 Ears/Nose/Throat oral cavity/pharynx/larynx Overall: no masses 03/13/2014 None Full Exam - General 1994 Respiratory auscultation Overall: breath sounds clear bilaterally 03/13/2014 None Full Exam - General 1994 Respiratory respiratory effort/rhythm Overall: no retractions 03/13/2014 None Full Exam - General 1994 Respiratory respiratory effort/rhythm Overall: normal rate 03/13/2014 None Full Exam - General 1994 Cardiovascular extremities Overall: no clubbing 03/13/2014 None Full Exam - General 1994 Cardiovascular auscultation of heart Overall: regular rate 03/13/2014 None Full Exam - General 1994 Cardiovascular auscultation of heart Overall: normal heart sounds 03/13/2014 None Full Exam - General 1994 Cardiovascular auscultation of heart Overall: no murmurs 03/13/2014 None Full Exam - General 1994 Abdomen abdominal exam Overall: no tenderness 03/13/2014 None Full Exam - General 1994 Abdomen abdominal exam Overall: normal bowel sounds 03/13/2014 None Full Exam - General 1994 Lymphatic neck nodes Overall: anterior cervical chain benign 03/13/2014 None Full Exam - General 1994 Lymphatic neck nodes Overall: posterior cervical chain benign 03/13/2014 None Full Exam - General 1994 Musculoskeletal gait and station Overall: normal gait 03/13/2014 None Full Exam - General 1994 Musculoskeletal gait and station Overall: normal station 03/13/2014 None Full Exam - General 1994 Integument inspection of skin Overall: no rash, lesions 03/13/2014 None Full Exam - General 1994 Neurologic deep tendon reflexes Overall: deep tendon reflexes intact 03/13/2014 None Full Exam - General 1994 Neurologic cranial nerves Overall: crainial nerves 2 - 12 grossly intact 03/13/2014 None Full Exam - General 1994 Psychiatric orientation/consciousness Overall: oriented to person, place and time 03/13/2014 None Full Exam - General 1994 Constitutional general appearance Overall: well developed 02/08/2014 None Full Exam - General 1994 Constitutional general appearance Overall: in no acute distress 02/08/2014 None Full Exam - General 1994 Constitutional general appearance Overall: well nourished 02/08/2014 None Full Exam - General 1994 Eyes conjunctiva /eyelids Overall: conjunctiva clear 02/08/2014 None Full Exam - General 1994 Eyes conjunctiva /eyelids Overall: cornea clear 02/08/2014 None Full Exam - General 1994 Eyes conjunctiva /eyelids Overall: eyelids normal 02/08/2014 None Full Exam - General 1994 Eyes pupils and irises Overall: pupils equal, round, reactive to light and accomodation 02/08/2014 None Full Exam - General 1994 Ears/Nose/Throat otoscopic exam Overall: external auditory canals clear 02/08/2014 None Full Exam - General 1994 Ears/Nose/Throat otoscopic exam Overall: tympanic membranes clear 02/08/2014 None Full Exam - General 1994 Ears/Nose/Throat oral cavity/pharynx/larynx Overall: oral mucosa clear 02/08/2014 None Full Exam - General 1994 Ears/Nose/Throat oral cavity/pharynx/larynx Overall: oropharyngeal mucosa clear 02/08/2014 None Full Exam - General 1994 Ears/Nose/Throat oral cavity/pharynx/larynx Overall: no masses 02/08/2014 None Full Exam - General 1994 Respiratory auscultation Overall: breath sounds clear bilaterally 02/08/2014 None Full Exam - General 1994 Respiratory respiratory effort/rhythm Overall: no retractions 02/08/2014 None Full Exam - General 1994 Respiratory respiratory effort/rhythm Overall: normal rate 02/08/2014 None Full Exam - General 1994 Cardiovascular extremities Overall: no clubbing 02/08/2014 None Full Exam - General 1994 Cardiovascular auscultation of heart Overall: regular rate 02/08/2014 None Full Exam - General 1994 Cardiovascular auscultation of heart Overall: normal heart sounds 02/08/2014 None Full Exam - General 1994 Cardiovascular auscultation of heart Overall: no murmurs 02/08/2014 None Full Exam - General 1994 Abdomen abdominal exam Overall: no tenderness 02/08/2014 None Full Exam - General 1994 Abdomen abdominal exam Overall: normal bowel sounds 02/08/2014 None Full Exam - General 1994 Lymphatic neck nodes Overall: anterior cervical chain benign 02/08/2014 None Full Exam - General 1994 Lymphatic neck nodes Overall: posterior cervical chain benign 02/08/2014 None Full Exam - General 1994 Musculoskeletal gait and station Overall: normal gait 02/08/2014 None Full Exam - General 1994 Musculoskeletal gait and station Overall: normal station 02/08/2014 None Full Exam - General 1994 Integument inspection of skin Overall: no rash, lesions 02/08/2014 None Full Exam - General 1994 Neurologic deep tendon reflexes Overall: deep tendon reflexes intact 02/08/2014 None Full Exam - General 1994 Neurologic cranial nerves Overall: crainial nerves 2 - 12 grossly intact 02/08/2014 None Full Exam - General 1994 Psychiatric orientation/consciousness Overall: oriented to person, place and time 02/08/2014 None Full Exam - General 1994 Constitutional general appearance Overall: well developed 10/10/2013 None Full Exam - General 1994 Constitutional general appearance Overall: in no acute distress 10/10/2013 None Full Exam - General 1994 Constitutional general appearance Overall: well nourished 10/10/2013 None Full Exam - General 1994 Eyes conjunctiva /eyelids Overall: conjunctiva clear 10/10/2013 None Full Exam - General 1994 Eyes conjunctiva /eyelids Overall: cornea clear 10/10/2013 None Full Exam - General 1994 Eyes conjunctiva /eyelids Overall: eyelids normal 10/10/2013 None Full Exam - General 1994 Eyes pupils and irises Overall: pupils equal, round, reactive to light and accomodation 10/10/2013 None Full Exam - General 1994 Ears/Nose/Throat otoscopic exam Overall: external auditory canals clear 10/10/2013 None Full Exam - General 1994 Ears/Nose/Throat otoscopic exam Overall: tympanic membranes clear 10/10/2013 None Full Exam - General 1994 Ears/Nose/Throat oral cavity/pharynx/larynx Overall: oral mucosa clear 10/10/2013 None Full Exam - General 1994 Ears/Nose/Throat oral cavity/pharynx/larynx Overall: oropharyngeal mucosa clear 10/10/2013 None Full Exam - General 1995 Ears/Nose/Throat oral cavity/pharynx/larynx Overall: no masses 10/10/2013 None Full Exam - General 1994 Respiratory auscultation Overall: breath sounds clear bilaterally 10/10/2013 None Full Exam - General 1994 Respiratory respiratory effort/rhythm Overall: no retractions 10/10/2013 None Full Exam - General 1994 Respiratory respiratory effort/rhythm Overall: normal rate 10/10/2013 None Full Exam - General 1994 Cardiovascular extremities Overall: no clubbing 10/10/2013 None Full Exam - General 1994 Cardiovascular auscultation of heart Overall: regular rate 10/10/2013 None Full Exam - General 1994 Cardiovascular auscultation of heart Overall: normal heart sounds 10/10/2013 None Full Exam - General 1994 Cardiovascular auscultation of heart Overall: no murmurs 10/10/2013 None Full Exam - General 1994 Abdomen abdominal exam Overall: no tenderness 10/10/2013 None Full Exam - General 1994 Abdomen abdominal exam Overall: normal bowel sounds 10/10/2013 None Full Exam - General 1994 Lymphatic neck nodes Overall: anterior cervical chain benign 10/10/2013 None Full Exam - General 1994 Lymphatic neck nodes Overall: posterior cervical chain benign 10/10/2013 None Full Exam - General 1994 Musculoskeletal gait and station Overall: normal gait 10/10/2013 None Full Exam - General 1995 Musculoskeletal gait and station Overall: normal station 10/10/2013 None Full Exam - General 1994 Integument inspection of skin Overall: no rash, lesions 10/10/2013 None Full Exam - General 1995 Neurologic deep tendon reflexes Overall: deep tendon reflexes intact 10/10/2013 None Full Exam - General 1994 Neurologic cranial nerves Overall: crainial nerves 2 - 12 grossly intact 10/10/2013 None Full Exam - General 1994 Psychiatric orientation/consciousness Overall: oriented to person, place and time 10/10/2013 None Full Exam - General 1995 Constitutional general appearance Overall: well developed 03/29/2013 None Full Exam - General 1994 Constitutional general appearance Overall: in no acute distress 03/29/2013 None Full Exam - General 1994 Constitutional general appearance Overall: well nourished 03/29/2013 None Full Exam - General 1994 Eyes conjunctiva /eyelids Overall: conjunctiva clear 03/29/2013 None Full Exam - General 1994 Eyes conjunctiva /eyelids Overall: cornea clear 03/29/2013 None Full Exam - General 1994 Eyes conjunctiva /eyelids Overall: eyelids normal 03/29/2013 None Full Exam - General 1994 Eyes pupils and irises Overall: pupils equal, round, reactive to light and accomodation 03/29/2013 None Full Exam - General 1994 Ears/Nose/Throat otoscopic exam Overall: external auditory canals clear 03/29/2013 None Full Exam - General 1995 Ears/Nose/Throat otoscopic exam Overall: tympanic membranes clear 03/29/2013 None Full Exam - General 1994 Ears/Nose/Throat oral cavity/pharynx/larynx Overall: oral mucosa clear 03/29/2013 None Full Exam - General 1995 Ears/Nose/Throat oral cavity/pharynx/larynx Overall: oropharyngeal mucosa clear 03/29/2013 None Full Exam - General 1994 Ears/Nose/Throat oral cavity/pharynx/larynx Overall: no masses 03/29/2013 None Full Exam - General 1994 Respiratory auscultation Overall: breath sounds clear bilaterally 03/29/2013 None Full Exam - General 1994 Respiratory respiratory effort/rhythm Overall: no retractions 03/29/2013 None Full Exam - General 1994 Respiratory respiratory effort/rhythm Overall: normal rate 03/29/2013 None Full Exam - General 1994 Cardiovascular extremities Overall: no clubbing 03/29/2013 None Full Exam - General 1994 Cardiovascular auscultation of heart Overall: regular rate 03/29/2013 None Full Exam - General 1994 Cardiovascular auscultation of heart Overall: normal heart sounds 03/29/2013 None Full Exam - General 1994 Cardiovascular auscultation of heart Overall: no murmurs 03/29/2013 None Full Exam - General 1994 Abdomen abdominal exam Overall: no tenderness 03/29/2013 None Full Exam - General 1994 Abdomen abdominal exam Overall: normal bowel sounds 03/29/2013 None Full Exam - General 1994 Lymphatic neck nodes Overall: anterior cervical chain benign 03/29/2013 None Full Exam - General 1994 Lymphatic neck nodes Overall: posterior cervical chain benign 03/29/2013 None Full Exam - General 1994 Musculoskeletal gait and station Overall: normal gait 03/29/2013 None Full Exam - General 1994 Musculoskeletal gait and station Overall: normal station 03/29/2013 None Full Exam - General 1994 Integument inspection of skin Overall: no rash, lesions 03/29/2013 None Full Exam - General 1994 Neurologic deep tendon reflexes Overall: deep tendon reflexes intact 03/29/2013 None Full Exam - General 1994 Neurologic cranial nerves Overall: crainial nerves 2 - 12 grossly intact 03/29/2013 None Full Exam - General 1994 Psychiatric orientation/consciousness Overall: oriented to person, place and time 03/29/2013 None Full Exam - Genitourinary/Female Constitutional general appearance Overall: well nourished 11/28/2012 None Full Exam - Genitourinary/Female Constitutional general appearance Overall: well developed 11/28/2012 None Full Exam - Genitourinary/Female Constitutional general appearance Overall: in no acute distress 11/28/2012 None Full Exam - Genitourinary/Female Respiratory auscultation Overall: breath sounds clear bilaterally 11/28/2012 None Full Exam - Genitourinary/Female Respiratory respiratory effort/rhythm Overall: no retractions 11/28/2012 None Full Exam - Genitourinary/Female Respiratory respiratory effort/rhythm Overall: normal rate 11/28/2012 None Full Exam - Genitourinary/Female Cardiovascular auscultation of heart Overall: regular rate 11/28/2012 None Full Exam - Genitourinary/Female Cardiovascular examination of vasculature Overall: no clubbing, cyanosis, edema 11/28/2012 None Full Exam - Genitourinary/Female Abdomen abdominal exam Overall: non tender, non distended 11/28/2012 None Full Exam - Genitourinary/Female Abdomen abdominal exam Overall: normal bowel sounds 11/28/2012 None Full Exam - Genitourinary/Female Abdomen abdominal exam Overall: no mass lesions 11/28/2012 None Full Exam - Genitourinary/Female Genitourinary external genitalia Overall: no discharge 11/28/2012 None Full Exam - Genitourinary/Female Genitourinary external genitalia Overall: no lesions 11/28/2012 None Full Exam - Genitourinary/Female Genitourinary urethral meatus Overall: normal size and location 11/28/2012 None Full Exam - Genitourinary/Female Genitourinary vagina Vaginal discharge: absent 11/28/2012 None Full Exam - Genitourinary/Female Psychiatric orientation/consciousness Overall: oriented to person, place and time 11/28/2012 None Full Exam - Genitourinary/Female Genitourinary vagina Overall: no discharge 11/28/2012 None Full Exam - Genitourinary/Female Genitourinary vagina Overall: normal tone 11/28/2012 None Full Exam - Genitourinary/Female Genitourinary vagina Introitus: normal appearance 11/28/2012 None Full Exam - Genitourinary/Female Genitourinary vagina Vagina: atrophic 11/28/2012 pt has dark macular lesions on vainal tissue at the 10 - 11 oclock position as well as in the 5 oclock position, new lesions at the 3 oclock region on right, and the 7-9 oclock region on the left, a biopsy of the labia sent to pathology - a shave biopsy obtained and silver nitrate used to cauterize the lesion - the biopsy taken from the 3 oclock position of the labial on the right. Full Exam - Genitourinary/Female Eyes pupils and irises Overall: pupils equal, round, reactive to light and accomodation 05/31/2012 None Full Exam - Genitourinary/Female Ears/Nose/Throat otoscopic exam Overall: external auditory canals clear 05/31/2012 None Full Exam - Genitourinary/Female Ears/Nose/Throat otoscopic exam Overall: tympanic membranes clear 05/31/2012 None Full Exam - Genitourinary/Female Ears/Nose/Throat oral cavity/pharynx/larynx Overall: oral mucosa clear 05/31/2012 None Full Exam - Genitourinary/Female Respiratory auscultation Overall: breath sounds clear bilaterally 05/31/2012 None Full Exam - Genitourinary/Female Respiratory respiratory effort/rhythm Overall: no retractions 05/31/2012 None Full Exam - Genitourinary/Female Respiratory respiratory effort/rhythm Overall: normal rate 05/31/2012 None Full Exam - Genitourinary/Female Cardiovascular auscultation of heart Overall: regular rate 05/31/2012 None Full Exam - Genitourinary/Female Cardiovascular examination of vasculature Overall: no clubbing, cyanosis, edema 05/31/2012 None Full Exam - Genitourinary/Female Abdomen abdominal exam Overall: non tender, non distended 05/31/2012 None Full Exam - Genitourinary/Female Abdomen abdominal exam Overall: normal bowel sounds 05/31/2012 None Full Exam - Genitourinary/Female Abdomen abdominal exam Overall: no mass lesions 05/31/2012 None Full Exam - Genitourinary/Female Genitourinary breast inspection & palpation Overall: breasts symmetric and without lesions 05/31/2012 None Full Exam - Genitourinary/Female Genitourinary breast inspection & palpation Overall: breasts non-tender, no mass lesions 05/31/2012 None Full Exam - Genitourinary/Female Genitourinary breast inspection & palpation Overall: no nipple discharge 05/31/2012 None Full Exam - Genitourinary/Female Genitourinary external genitalia Overall: no discharge 05/31/2012 None Full Exam - Genitourinary/Female Genitourinary external genitalia Overall: no lesions 05/31/2012 None Full Exam - Genitourinary/Female Genitourinary urethral meatus Overall: normal size and location 05/31/2012 None Full Exam - Genitourinary/Female Genitourinary bladder Palpation: non-tender 05/31/2012 None Full Exam - Genitourinary/Female Genitourinary bladder Palpation: no masses 05/31/2012 None Full Exam - Genitourinary/Female Genitourinary vagina Overall: no discharge 05/31/2012 None Full Exam - Genitourinary/Female Genitourinary vagina Overall: normal tone 05/31/2012 None Full Exam - Genitourinary/Female Genitourinary vagina Introitus: normal appearance 05/31/2012 None Full Exam - Genitourinary/Female Genitourinary vagina Vaginal discharge: absent 05/31/2012 None Full Exam - Genitourinary/Female Lymphatic inspection and palpation of nodes Overall: anterior cervical chain benign 05/31/2012 None Full Exam - Genitourinary/Female Lymphatic inspection and palpation of nodes Overall: posterior cervical chain benign 05/31/2012 None Full Exam - Genitourinary/Female Musculoskeletal head and neck Overall: head atraumatic 05/31/2012 None Full Exam - Genitourinary/Female Musculoskeletal gait and station Overall: normal gait 05/31/2012 None Full Exam - Genitourinary/Female Musculoskeletal gait and station Overall: normal station 05/31/2012 None Full Exam - Genitourinary/Female Integument inspection and palpation of skin Overall: no rash, lesions 05/31/2012 None Full Exam - Genitourinary/Female Neurologic mood and affect Overall: normal mood 05/31/2012 None Full Exam - Genitourinary/Female Neurologic mood and affect Overall: normal affect 05/31/2012 None Full Exam - Genitourinary/Female Neurologic orientation Overall: oriented to person, place and time 05/31/2012 None Full Exam - Genitourinary/Female Psychiatric orientation/consciousness Overall: oriented to person, place and time 05/31/2012 None Full Exam - Genitourinary/Female Constitutional general appearance Overall: well nourished 05/31/2012 None Full Exam - Genitourinary/Female Constitutional general appearance Overall: well developed 05/31/2012 None Full Exam - Genitourinary/Female Constitutional general appearance Overall: in no acute distress 05/31/2012 None Full Exam - Genitourinary/Female Eyes conjunctiva/eyelids Overall: conjunctiva clear 05/31/2012 None Full Exam - Genitourinary/Female Genitourinary cervix Overall: cervix surgically absent 05/31/2012 None Full Exam - Genitourinary/Female Genitourinary uterus Overall: uterus surgically absent 05/31/2012 None Full Exam - Genitourinary/Female Genitourinary vagina Vagina: atrophic 05/31/2012 pt has dark macular lesions on vainal tissue at the 10 - 11 oclock position as well as in the 5 oclock position. Full Exam - General 1994 Constitutional general appearance Overall: well developed 03/01/2012 None Full Exam - General 1994 Constitutional general appearance Overall: in no acute distress 03/01/2012 None Full Exam - General 1994 Constitutional general appearance Overall: well nourished 03/01/2012 None Full Exam - General 1994 Eyes conjunctiva /eyelids Overall: conjunctiva clear 03/01/2012 None Full Exam - General 1994 Eyes conjunctiva /eyelids Overall: cornea clear 03/01/2012 None Full Exam - General 1994 Eyes conjunctiva /eyelids Overall: eyelids normal 03/01/2012 None Full Exam - General 1994 Eyes pupils and irises Overall: pupils equal, round, reactive to light and accomodation 03/01/2012 None Full Exam - General 1994 Ears/Nose/Throat otoscopic exam Overall: external auditory canals clear 03/01/2012 None Full Exam - General 1994 Ears/Nose/Throat otoscopic exam Overall: tympanic membranes clear 03/01/2012 None Full Exam - General 1994 Ears/Nose/Throat oral cavity/pharynx/larynx Overall: oral mucosa clear 03/01/2012 None Full Exam - General 1994 Ears/Nose/Throat oral cavity/pharynx/larynx Overall: oropharyngeal mucosa clear 03/01/2012 None Full Exam - General 1995 Ears/Nose/Throat oral cavity/pharynx/larynx Overall: no masses 03/01/2012 None Full Exam - General 1994 Respiratory auscultation Overall: breath sounds clear bilaterally 03/01/2012 None Full Exam - General 1994 Respiratory respiratory effort/rhythm Overall: no retractions 03/01/2012 None Full Exam - General 1994 Respiratory respiratory effort/rhythm Overall: normal rate 03/01/2012 None Full Exam - General 1994 Cardiovascular extremities Overall: no clubbing 03/01/2012 None Full Exam - General 1994 Cardiovascular auscultation of heart Overall: regular rate 03/01/2012 None Full Exam - General 1994 Cardiovascular auscultation of heart Overall: normal heart sounds 03/01/2012 None Full Exam - General 1994 Cardiovascular auscultation of heart Overall: no murmurs 03/01/2012 None Full Exam - General 1994 Abdomen abdominal exam Overall: no tenderness 03/01/2012 None Full Exam - General 1994 Abdomen abdominal exam Overall: normal bowel sounds 03/01/2012 None Full Exam - General 1994 Lymphatic neck nodes Overall: anterior cervical chain benign 03/01/2012 None Full Exam - General 1994 Lymphatic neck nodes Overall: posterior cervical chain benign 03/01/2012 None Full Exam - General 1994 Musculoskeletal gait and station Overall: normal gait 03/01/2012 None Full Exam - General 1994 Musculoskeletal gait and station Overall: normal station 03/01/2012 None Full Exam - General 1994 Integument inspection of skin Overall: no rash, lesions 03/01/2012 None Full Exam - General 1994 Neurologic deep tendon reflexes Overall: deep tendon reflexes intact 03/01/2012 None Full Exam - General 1994 Neurologic cranial nerves Overall: crainial nerves 2 - 12 grossly intact 03/01/2012 None Full Exam - General 1994 Psychiatric orientation/consciousness Overall: oriented to person, place and time 03/01/2012 None Full Exam - General 1994 Eyes pupils and irises Overall: pupils equal, round, reactive to light and accomodation 02/02/2012 None Full Exam - General 1994 Ears/Nose/Throat otoscopic exam Overall: tympanic membranes clear 02/02/2012 None Full Exam - General 1994 Ears/Nose/Throat otoscopic exam Overall: external auditory canals clear 02/02/2012 None Full Exam - General 1994 Ears/Nose/Throat oral cavity/pharynx/larynx Overall: oropharyngeal mucosa clear 02/02/2012 None Full Exam - General 1994 Ears/Nose/Throat oral cavity/pharynx/larynx Overall: no masses 02/02/2012 None Full Exam - General 1994 Ears/Nose/Throat oral cavity/pharynx/larynx Overall: oral mucosa clear 02/02/2012 None Full Exam - General 1994 Respiratory auscultation Overall: breath sounds clear bilaterally 02/02/2012 None Full Exam - General 1994 Respiratory respiratory effort/rhythm Overall: normal rate 02/02/2012 None Full Exam - General 1994 Respiratory respiratory effort/rhythm Overall: no retractions 02/02/2012 None Full Exam - General 1994 Cardiovascular auscultation of heart Overall: regular rate 02/02/2012 None Full Exam - General 1994 Cardiovascular auscultation of heart Overall: normal heart sounds 02/02/2012 None Full Exam - General 1994 Cardiovascular auscultation of heart Overall: no murmurs 02/02/2012 None Full Exam - General 1994 Cardiovascular extremities Overall: no clubbing 02/02/2012 None Full Exam - General 1994 Abdomen abdominal exam Overall: no tenderness 02/02/2012 None Full Exam - General 1994 Abdomen abdominal exam Overall: normal bowel sounds 02/02/2012 None Full Exam - General 1994 Constitutional general appearance Overall: well nourished 02/02/2012 None Full Exam - General 1994 Constitutional general appearance Overall: well developed 02/02/2012 None Full Exam - General 1994 Constitutional general appearance Overall: in no acute distress 02/02/2012 None Full Exam - General 1994 Eyes conjunctiva /eyelids Overall: conjunctiva clear 02/02/2012 None Full Exam - General 1994 Eyes conjunctiva /eyelids Overall: eyelids normal 02/02/2012 None Full Exam - General 1994 Eyes conjunctiva /eyelids Overall: cornea clear 02/02/2012 None Full Exam - General 1994 Lymphatic neck nodes Overall: anterior cervical chain benign 02/02/2012 None Full Exam - General 1994 Lymphatic neck nodes Overall: posterior cervical chain benign 02/02/2012 None Full Exam - General 1994 Musculoskeletal gait and station Overall: normal station 02/02/2012 None Full Exam - General 1994 Musculoskeletal gait and station Overall: normal gait 02/02/2012 None Full Exam - General 1994 Integument inspection of skin Overall: no rash, lesions 02/02/2012 None Full Exam - General 1994 Neurologic deep tendon reflexes Overall: deep tendon reflexes intact 02/02/2012 None Full Exam - General 1994 Neurologic cranial nerves Overall: crainial nerves 2 - 12 grossly intact 02/02/2012 None Full Exam - General 1994 Psychiatric orientation/consciousness Overall: oriented to person, place and time 02/02/2012 None Procedures Procedure Codes Date ADMIN INFLUENZA VIRUS VAC CPT-4: G0008 08/11/2018 FLU VACC PRSV FREE INC ANTIG Formatting Model/CDA Sections, Assigned to/Promise Cullen CPT-4: 37429Gyacffc 08/11/2018 PPPS, SUBSEQ VISIT CPT -4: G0439 09/29/2017 ADMIN [address]CCAL VACCINE SNOMED CT: 53763996 CPT-4: G0009 09/09/2017 PNEUMOCOCCAL VACC [address]: 48850697 CPT-4: 33987 09/09/2017 ADMIN INFLUENZA VIRUS VAC CPT-4: G0008 08/13/2017 FLU VACC PRSV FREE INC ANTIG CPT-4: 13404 08/13/2017 PPPS, SUBSEQ VISIT CPT -4: G0439 09/23/2016 ADMIN INFLUENZA VIRUS VAC CPT-4: G0008 07/02/2016 FLU VACC PRSV FREE INC ANTIG Formatting Model/CDA Sections, Assigned to/Promise Cullen CPT-4: 20612Tjyjjql 07/02/2016 TRIAMCINOLONE ACET INJ NOS CPT-4: J3301 03/26/2016 TRIAMCINOLONE ACET INJ NOS CPT-4: J3301 05/13/2015 ADMIN INFLUENZA VIRUS VAC CPT-4: G0008 07/18/2013 FLULAVAL VACC, 3 YRS & >, IM CPT-4: Q2036 07/18/2013 PRESCRIP TRANSMIT VIA ERX SY CPT-4: G8553 03/29/2013 BIOPSY SKIN LESION CPT -4: 00226 11/28/2012 ADMIN INFLUENZA VIRUS VAC CPT-4: G0008 08/15/2012 FLULAVAL VACC, 3 YRS & >, IM CPT-4: Q2036 08/15/2012 PRESCRIP TRANSMIT VIA ERX SY CPT-4: G8553 05/31/2012 Vital Signs Date Vital 09/08/2018 Blood Pressure 1: 154/70 Code : 8480-6 BMI: 27.5 Code : 48012-2 Heart Rate 1 : 70 bpm Height: 5'6" SpO2: 97% Weight: 168 lbs 01/13/2018 Blood Pressure 1: 132/64 Code : 8480-6 BMI: 27.0 Code : 20963-5 Heart Rate 1 : 73 bpm Height: 5'6" SpO2: 98% Weight: 165 lbs 12/01/2017 Blood Pressure 1: 142/78 Code : 8480-6 BMI: 26.5 Code : 47439-3 Heart Rate 1 : 88 bpm Height: 5'6" SpO2: 97% Weight: 162 lbs 09/29/2017 Blood Pressure 1: 140/64 Code : 8480-6 BMI: 26.9 Code : 24029-4 Heart Rate 1 : 76 bpm Height: 5'6" SpO2: 97% Waist Measure (cm): 81 cm Weight: 164 lbs 02/19/2017 Blood Pressure 1: 144/68 Code : 8480-6 BMI: 26.5 Code : 36596-2 Heart Rate 1 : 76 bpm Height: 5'6" SpO2: 93% Weight: 161 lbs 8 oz 10/30/2016 Blood Pressure 1: 144/60 Code : 8480-6 BMI: 25.9 Code : 74797-5 Heart Rate 1 : 78 bpm Height: 5'6" SpO2: 95% Weight: 158 lbs 09/23/2016 Blood Pressure 1: 134/76 Code : 8480-6 BMI: 25.7 Code : 25891-7 Heart Rate 1 : 76 bpm Height: 5'6" SpO2: 97% Weight: 157 lbs 07/02/2016 Blood Pressure 1: 136/80 Code : 8480-6 BMI: 26.4 Code : 92324-0 Heart Rate 1 : 76 bpm Height: 5'6" SpO2: 94% Weight: 161 lbs 03/26/2016 Blood Pressure 1: 140/82 Code : 8480-6 BMI: 26.1 Code : 74443-3 Heart Rate 1 : 72 bpm Height: 5'6" SpO2: 90% Weight: 159 lbs 12/24/2015 Blood Pressure 1: 140/76 Code : 8480-6 BMI: 25.7 Code : 01333-0 Heart Rate 1 : 83 bpm Height: 5'6" SpO2: 93% Weight: 157 lbs 11/22/2015 Blood Pressure 1: 140/80 Code : 8480-6 BMI: 25.6 Code : 06980-5 Heart Rate 1 : 76 bpm Height: 5'6" SpO2: 91% Weight: 156 lbs 05/13/2015 Blood Pressure 1: 160/84 Code : 8480-6 Blood Pressure 2: 150/84 Code: 8480-6 Heart Rate 1: 77 bpm SpO2: 97% Weight: 151 lbs 04/12/2014 Blood Pressure 1: 142/70 Code : 8480-6 BMI: 26.9 Code : 55822-5 Heart Rate 1 : 92 bpm Height: 5'6" Weight: 164 lbs 03/13/2014 Blood Pressure 1: 134/68 Code : 8480-6 BMI: 25.7 Code : 17609-9 Heart Rate 1 : 87 bpm Height: 5'6" SpO2: 96% Weight: 157 lbs 02/08/2014 Blood Pressure 1: 158/78 Code : 8480-6 BMI: 26.2 Code : 51085-7 Heart Rate 1 : 100 bpm Height: 5'6" Weight: 160 lbs 10/10/2013 Blood Pressure 1: 128/68 Code : 8480-6 BMI: 27.4 Code : 41474-6 Heart Rate 1 : 80 bpm Height: 5'6" Weight: 167 lbs 03/29/2013 Blood Pressure 1: 136/72 Code : 8480-6 BMI: 27.5 Code : 46823-5 Heart Rate 1 : 80 bpm Height: 5'6" Weight: 168 lbs 11/28/2012 Blood Pressure 1: 132/80 Code : 8480-6 Heart Rate 1: 76 bpm Weight: 164 lbs 05/31/2012 Blood Pressure 1: 130/68 Code : 8480-6 Heart Rate 1: 76 bpm Weight: 161 lbs 03/01/2012 Blood Pressure 1: 142/68 Code : 8480-6 BMI: 26.2 Code : 89164-5 Heart Rate 1 : 64 bpm Height: 5'6" Respiratory Rate: 16 bpm Weight: 160 lbs 02/02/2012 Blood Pressure 1: 118/58 Code : 8480-6 BMI: 26.4 Code : 26427-4 Heart Rate 1 : 60 bpm Height: 5'6" Weight: 161 lbs Functional Status No Functional Status data History of Present Illness Symptom Name Status Result Effective Date Notes diabetes mellitus Quality non-insulin dependent 09/08/2018 None diabetes mellitus Alleviating Factors medication 09/08/2018 None diabetes mellitus Exacerbating Factors diet 09/08/2018 None diabetes mellitus Nutrition ADA diet 09/08/2018 None diabetes mellitus Pertinent Findings Denies nausea 09/08/2018 None diabetes mellitus Onset of Symptom onset as an adult 09/08/2018 None hypertension Quality primary hypertension 09/08/2018 None hypertension Onset and Resolution ongoing 09/08/2018 None hypertension Onset of Symptom during adulthood 09/08/2018 None hypertension Alleviating Factors medication 09/08/2018 None hypertension Pertinent Findings Denies dizziness 09/08/2018 None hypertension Pertinent Findings dyspnea 09/08/2018 None hypertension Pertinent Findings edema 09/08/2018 None hypertension Quality chronic 09/08/2018 None diabetes mellitus Quality chronic 09/08/2018 None hypertension Blood Pressure Values not checking blood pressure at home 09/08/2018 None diabetes mellitus Test results Pt checking blood glucose readings, did not bring results to clinic 09/08/2018 None diabetes mellitus Glucose monitoring occasional glucose testing 09/08/2018 None vaccination against influenza Location [id number]-[id number] 08/11/2018 None diabetes mellitus Quality non-insulin dependent 01/13/2018 None diabetes mellitus Alleviating Factors medication 01/13/2018 None diabetes mellitus Alleviating Factors diet 01/13/2018 None diabetes mellitus Nutrition ADA diet 01/13/2018 None diabetes mellitus Onset of Symptom onset as an adult 01/13/2018 None hypertension Quality primary hypertension 01/13/2018 None hypertension Onset and Resolution ongoing 01/13/2018 None hypertension Onset of Symptom during adulthood 01/13/2018 None hypertension Blood Pressure Values patient checking blood pressure at home - did not bring in readings 01/13/2018 -Checks occasionally hypertension Alleviating Factors medication 01/13/2018 None hypertension Pertinent Findings Denies dizziness 01/13/2018 None hypertension Pertinent Findings dyspnea 01/13/2018 None hypertension Pertinent Findings edema 01/13/2018 None diabetes mellitus Test results Pt checking blood glucose readings, did not bring results to clinic 01/13/2018 None diabetes mellitus Glucose monitoring daily 01/13/2018 None diabetes mellitus Exacerbating Factors diet 01/13/2018 None diabetes mellitus Pertinent Findings Denies nausea 01/13/2018 None diabetes mellitus Quality non-insulin dependent 12/01/2017 None diabetes mellitus Quality NIDDM 12/01/2017 None diabetes mellitus Significant Medications glucagon 12/01/2017 None diabetes mellitus Alleviating Factors medication 12/01/2017 None diabetes mellitus Alleviating Factors diet 12/01/2017 None diabetes mellitus Nutrition ADA diet 12/01/2017 None diabetes mellitus Pertinent Findings Denies dizziness 12/01/2017 occasionally diabetes mellitus Pertinent Findings Denies dyspnea 12/01/2017 None diabetes mellitus Onset of Symptom onset as an adult 12/01/2017 None diabetes mellitus Severity moderate 12/01/2017 None diabetes mellitus Test results Pt checking blood glucose at home, see scanned readings 2017 None diabetes mellitus Blood glucose levels greater than 120 12/01/2017 None diabetes mellitus Glucose monitoring occasional glucose testing 12/01/2017 None Annual Medicare Wellness Exam Alcohol Use does not drink any alcohol 09/29/2017 None Annual Medicare Wellness Exam Aspirin Use no 09/29/2017 None Annual Medicare Wellness Exam Blood Glucose (self reported) desireable (below 100) 09/29/2017 None Annual Medicare Wellness Exam Blood Pressure (self reported ) high (140/90 or higher) 09/29/2017 None Annual Medicare Wellness Exam Cholesterol (self reported) don't know 09/29/2017 None Annual Medicare Wellness Exam Depression (last 6 months) some of the time 09/29/2017 None Annual Medicare Wellness Exam Depression or Hopelessness some of the time 09/29/2017 None Annual Medicare Wellness Exam Describe Your Health fair 09/29/2017 None Annual Medicare Wellness Exam Exercise Habits does not exercise 09/29/2017 None Annual Medicare Wellness Exam Handling Stress usually ar[place]old[place] effectively 09/29/2017 None Annual Medicare Wellness Exam Hemaglobin A-1C (self reported ) don't know 09/29/2017 None Annual Medicare Wellness Exam Hours of Sleep 6 09/29/2017 None Annual Medicare Wellness Exam Interaction with Friends yes 09/29/2017 None Annual Medicare Wellness Exam Interests & Pleasure daily 09/29/2017 None Annual Medicare Wellness Exam Life Satisfaction satisfied 09/29/2017 None Annual Medicare Wellness Exam Motor Vehicle Safety drives after drinking: n 09/29/2017 None Annual Medicare Wellness Exam Motor Vehicle Safety always fastens seat belt: y 09/29/2017 None Annual Medicare Wellness Exam Motor Vehicle Safety rides with someone who has been drinking: n 2016 None Annual Medicare Wellness Exam Nutrition servings of fried food / high fat foods per day: 0 2016 None Annual Medicare Wellness Exam Nutrition servings of high fiber / whole grain per day: 2 09/29/2017 None Annual Medicare Wellness Exam Nutrition servings of vegetables / fruit per day: 5 09/29/2017 None Annual Medicare Wellness Exam Smoking and Tobacco Use non smoker 09/29/2017 None Annual Medicare Wellness Exam Social & Emotional Support usually 09/29/2017 None Annual Medicare Wellness Exam Stress some of the time 09/29/2017 None Annual Medicare Wellness Exam Sun Exposure protects skin when outdoors: y 09/29/2017 None cough Location in the throat 02/19/2017 None cough Quality constant 02/19/2017 None cough Quality dry None cough Onset and Resolution sudden in onset 02/19/2017 None cough Onset of Symptom 2 weeks ago 02/19/2017 worsening x 2 weeks-coughing up yellow cough Onset of Symptom during adulthood 02/19/2017 None cough Limitation on Activities does not limit activities 02/19/2017 None cough Frequency of Episodes increasing 02/19/2017 None cough Significant Medical Conditions pulmonary disease 02/19/2017 None cough Triggers no known associated factors 02/19/2017 None cough Pertinent Findings Denies dyspnea 02/19/2017 None arm pain Quality sharp pain 02/19/2017 None arm pain Location right upper arm 02/19/2017 None arm pain Onset of Symptom 2 weeks ago 02/19/2017 None arm pain Limitation on Activities moderately limits activities 02/19/2017 None arm pain Pertinent Findings female 02/19/2017 None arm pain Pertinent Findings 58 years 02/19/2017 None arm pain Mechanism of injury unknown 02/19/2017 None cough Location in the throat 10/30/2016 None cough Quality constant 10/30/2016 None cough Quality dry 03/2017 None cough Onset and Resolution sudden in onset 10/30/2016 None cough Onset of Symptom during adulthood 10/30/2016 None cough Limitation on Activities does not limit activities 10/30/2016 None cough Frequency of Episodes increasing 10/30/2016 None cough Onset of Symptom 2 weeks ago 10/30/2016 worsening x 2 weeks-coughing up yellow cough Significant Medical Conditions pulmonary disease 10/30/2016 None cough Triggers no known associated factors 10/30/2016 None cough Pertinent Findings Denies dyspnea 10/30/2016 None Annual Medicare Wellness Exam Alcohol Use does not drink any alcohol 09/23/2016 None Annual Medicare Wellness Exam Aspirin Use no 09/23/2016 None Annual Medicare Wellness Exam Blood Glucose (self reported) desireable (below 100) 09/23/2016 None Annual Medicare Wellness Exam Blood Pressure (self reported ) borderline (120/80 - 139/89) 09/23/2016 None Annual Medicare Wellness Exam Cholesterol (self reported) high (240 or higher) 09/23/2016 None Annual Medicare Wellness Exam Hemaglobin A-1C (self reported ) desireable (6 or lower) 09/23/2016 None Annual Medicare Wellness Exam Depression (last 6 months) most of the time 09/23/2016 None Annual Medicare Wellness Exam Depression or Hopelessness almost never 09/23/2016 None Annual Medicare Wellness Exam Describe Your Health fair 09/23/2016 None Annual Medicare Wellness Exam Exercise Habits does not exercise 09/23/2016 None Annual Medicare Wellness Exam Handling Stress usually arnoldo effectively 09/23/2016 None Annual Medicare Wellness Exam Hours of Sleep 6 09/23/2016 None Annual Medicare Wellness Exam Interaction with Friends yes 09/23/2016 None Annual Medicare Wellness Exam Interests & Pleasure some of the time 09/23/2016 None Annual Medicare Wellness Exam Life Satisfaction satisfied 09/23/2016 None Annual Medicare Wellness Exam Motor Vehicle Safety always fastens seat belt: y 09/23/2016 None Annual Medicare Wellness Exam Motor Vehicle Safety drives after drinking: n 09/23/2016 None Annual Medicare Wellness Exam Motor Vehicle Safety rides with someone who has been drinking: n 2015 None Annual Medicare Wellness Exam Nutrition servings of fried food / high fat foods per day: 2 2015 None Annual Medicare Wellness Exam Nutrition servings of high fiber / whole grain per day: 2 09/23/2016 None Annual Medicare Wellness Exam Nutrition servings of vegetables / fruit per day: 5 09/23/2016 None Annual Medicare Wellness Exam Smoking and Tobacco Use non smoker 09/23/2016 None Annual Medicare Wellness Exam Social & Emotional Support always 09/23/2016 None Annual Medicare Wellness Exam Stress some of the time 09/23/2016 None Annual Medicare Wellness Exam Sun Exposure protects skin when outdoors: y 09/23/2016 None diabetes mellitus Quality non-insulin dependent 07/02/2016 None diabetes mellitus Quality NIDDM 07/02/2016 None diabetes mellitus Significant Medications glucagon 07/02/2016 None diabetes mellitus Alleviating Factors medication 07/02/2016 None diabetes mellitus Alleviating Factors diet 07/02/2016 None diabetes mellitus Nutrition ADA diet 07/02/2016 None diabetes mellitus Pertinent Findings Denies dizziness 07/02/2016 occasionally diabetes mellitus Pertinent Findings Denies dyspnea 07/02/2016 None diabetes mellitus Onset of Symptom onset as an adult 07/02/2016 None diabetes mellitus Quality non-insulin dependent 03/26/2016 None diabetes mellitus Quality NIDDM 03/26/2016 None diabetes mellitus Significant Medications glucagon 03/26/2016 None diabetes mellitus Pertinent Findings dizziness 03/26/2016 occasionally diabetes mellitus Pertinent Findings Denies dyspnea 03/26/2016 None shortness of breath Quality intermittent 03/26/2016 None shortness of breath Quality worsening 03/26/2016 None shortness of breath Onset and Resolution ongoing 03/26/2016 None shortness of breath Frequency of Episodes daily 03/26/2016 None shortness of breath Alleviating Factors rest 03/26/2016 she is not doing much around the house or cooking anymore due to sob with exertion shortness of breath Pertinent Findings Denies back pain 03/26/2016 None shortness of breath Pertinent Findings Denies chest discomfort 03/26/2016 None shortness of breath Pertinent Findings Denies nausea 03/26/2016 None diabetes mellitus Test results Pt checking blood glucose readings, did not bring results to clinic 03/26/2016 None diabetes mellitus Blood glucose levels between 60 and 120 03/26/2016 None diabetes mellitus Glucose monitoring twice daily 03/26/2016 None diabetes mellitus Alleviating Factors medication 03/26/2016 None diabetes mellitus Alleviating Factors diet 03/26/2016 None diabetes mellitus Nutrition ADA diet 03/26/2016 None diabetes mellitus Onset of Symptom onset as an adult 03/26/2016 None diabetes mellitus Quality non-insulin dependent 12/24/2015 None diabetes mellitus Significant Medications glucagon 12/24/2015 None diabetes mellitus Pertinent Findings dizziness 12/24/2015 occasionally diabetes mellitus Pertinent Findings Denies dyspnea 12/24/2015 None hypertension Quality chronic 12/24/2015 None hypertension Onset and Resolution ongoing 12/24/2015 None hypertension Onset of Symptom during adulthood 12/24/2015 None hypertension Severity mild 12/24/2015 None hypertension Frequency of Episodes unchanged 12/24/2015 None hypertension Triggers no known associated factors 12/24/2015 None hypertension Alleviating Factors medication 12/24/2015 None hypertension Pertinent Findings Denies confusion 12/24/2015 None hypertension Pertinent Findings Denies dyspnea 12/24/2015 None hypertension Pertinent Findings Denies nausea 12/24/2015 None diabetes mellitus Quality NIDDM 12/24/2015 None diabetes mellitus Test results Pt checking blood glucose at home, see scanned readings 2015 None diabetes mellitus Glucose monitoring daily 12/24/2015 None hypertension Quality chronic 11/22/2015 None hypertension Onset and Resolution ongoing 11/22/2015 None hypertension Onset of Symptom during adulthood 11/22/2015 None hypertension Severity mild 11/22/2015 None hypertension Frequency of Episodes unchanged 11/22/2015 None hypertension Triggers no known associated factors 11/22/2015 None hypertension Alleviating Factors medication 11/22/2015 None hypertension Pertinent Findings Denies confusion 11/22/2015 None hypertension Pertinent Findings dyspnea 11/22/2015 feels like she has to concentrate to breath- is using Spiriva hypertension Pertinent Findings Denies nausea 11/22/2015 None shortness of breath Quality chronic 11/22/2015 None shortness of breath Onset and Resolution ongoing 11/22/2015 None shortness of breath Limitation on Activities does not limit activities 11/22/2015 None shortness of breath Pertinent Findings edema 11/22/2015 slight- eats a lot of vegetables with salt diabetes mellitus Quality non-insulin dependent 11/22/2015 None diabetes mellitus Significant Medications glucagon 11/22/2015 None diabetes mellitus Test results Pt checking blood glucose readings, did not bring results to clinic 11/22/2015 checks it when she feels its high diabetes mellitus Glucose monitoring daily 11/22/2015 occassinally diabetes mellitus Pertinent Findings dyspnea 11/22/2015 None diabetes mellitus Pertinent Findings dizziness 11/22/2015 occ she reports but thinks it is due to her age hypertension Onset and Resolution ongoing 05/13/2015 None hypertension Pertinent Findings dyspnea 05/13/2015 feels like she has to concentrate to breath- is using Spiriva shortness of breath Onset and Resolution ongoing 05/13/2015 None shortness of breath Pertinent Findings edema 05/13/2015 slight- eats a lot of vegetables with salt diabetes mellitus Blood glucose levels greater than 120 05/13/2015 127 this am diabetes mellitus Glucose monitoring twice daily 05/13/2015 None diarrhea Onset and Resolution ongoing 05/13/2015 None diarrhea Onset of Symptom 8 years ago 05/13/2015 ulcerative colitis diarrhea Timing of Episodes no specific time 05/13/2015 None diarrhea Frequency of Episodes daily 05/13/2015 continuous- muscle weakness can no longer control it. Using Immodium. Took 7 Immodium in one day so she could go to [place]. Reports it is at point where she cant go anywhere diarrhea Frequency of Episodes increasing 05/13/2015 None hypertension Quality chronic 05/13/2015 None hypertension Onset of Symptom during adulthood 05/13/2015 None hypertension Frequency of Episodes unchanged 05/13/2015 None hypertension Severity mild 05/13/2015 None hypertension Triggers no known associated factors 05/13/2015 None hypertension Alleviating Factors medication 05/13/2015 None hypertension Pertinent Findings Denies confusion 05/13/2015 None hypertension Pertinent Findings Denies nausea 05/13/2015 None shortness of breath Quality chronic 05/13/2015 None shortness of breath Limitation on Activities does not limit activities 05/13/2015 None diabetes mellitus Quality non-insulin dependent 05/13/2015 None diabetes mellitus Significant Medications glucagon 05/13/2015 None diarrhea Alleviating Factors antidiarrheal agent 05/13/2015 None cough Location in the throat 04/12/2014 None cough Quality dry None cough Quality chronic 04/12/2014 None cough Pertinent Findings dyspnea 04/12/2014 None cough Pertinent Findings hoarseness 04/12/2014 None cough Pertinent Findings lethargy 04/12/2014 None skin lesion Quality tender 04/12/2014 None skin lesion Quality ulcerated 04/12/2014 None skin lesion Onset of Symptom 1 months ago 04/12/2014 on left foot pinkie toe cough Onset and Resolution ongoing 04/12/2014 None cough Limitation on Activities moderately limits activities 04/12/2014 None cough Triggers recumbent position 04/12/2014 None cough Location in the lung 03/13/2014 None cough Onset and Resolution ongoing 03/13/2014 None cough Pertinent Findings Denies chest discomfort 03/13/2014 None palpitations Quality worsening 03/13/2014 None palpitations Quality awareness of heartbeat 03/13/2014 None palpitations Pertinent Findings weakness 03/13/2014 None palpitations Onset of Symptom 2 months ago 03/13/2014 or greater palpitations Triggers no known associated factors 03/13/2014 None palpitations Alleviating Factors medication 03/13/2014 coreg palpitations Limitation on Activities does not limit activities 03/13/2014 None hypertension Quality chronic 02/08/2014 january 04 rec'd fax from [facility] abt possible duplication of therapy on both bystolic and coreg and coreg was dc'd hypertension Onset and Resolution ongoing 02/08/2014 None hypertension Blood Pressure Values pt checking blood pressure - see scanned document 02/08/2014 None cough Location in the throat 02/08/2014 None cough Quality dry None cough Pertinent Findings hoarseness 02/08/2014 None edema Quality acute None edema Onset and Resolution ongoing 02/08/2014 None edema Quality painless 02/08/2014 None edema Onset of Symptom 1 months ago 02/08/2014 None edema Location on the face 02/08/2014 right side, mouth droops hypertension Quality chronic 10/10/2013 None hypertension Quality stable 10/10/2013 None hypertension Onset and Resolution ongoing 10/10/2013 None hypertension Blood Pressure Values patient checking blood pressure at home - did not bring in readings 10/10/2013 None hypertension Pertinent Findings Denies dizziness 10/10/2013 None hypertension Pertinent Findings Denies dyspnea 10/10/2013 None hypertension Pertinent Findings Denies edema 10/10/2013 None hypertension Pertinent Findings Denies tachycardia 10/10/2013 None hypertension Pertinent Findings Denies palpitations 10/10/2013 None hypertension Pertinent Findings Denies orthostatic hypotension 10/10/2013 None hypertension Triggers no known associated factors 10/10/2013 None hypertension Alleviating Factors medication 10/10/2013 None hypertension Severity mild 10/10/2013 None hypertension Onset and Resolution ongoing 03/29/2013 None hypertension Blood Pressure Values patient checking blood pressure at home - did not bring in readings 03/29/2013 None hypertension Severity mild 03/29/2013 None hypertension Quality stable 03/29/2013 None hypertension Pertinent Findings Denies dizziness 03/29/2013 None hypertension Pertinent Findings Denies dyspnea 03/29/2013 None hypertension Pertinent Findings Denies confusion 03/29/2013 None hypertension Pertinent Findings edema 03/29/2013 facial hypertension Pertinent Findings Denies paroxysmal hypertension 03/29/2013 None hypertension Pertinent Findings Denies palpitations 03/29/2013 None hypertension Pertinent Findings Denies orthostatic hypotension 03/29/2013 None hypertension Pertinent Findings Denies tachycardia 03/29/2013 None hypertension Alleviating Factors medication 03/29/2013 None skin lesion Quality acute 11/28/2012 None skin lesion Quality enlarging 11/28/2012 None skin lesion Onset and Resolution gradual in onset 11/28/2012 None skin lesion Onset of Symptom 6+ months ago 11/28/2012 the lesions on her labia were first noticed about 6 months ago during a well woman exam skin lesion Severity mild 11/28/2012 None skin lesion Triggers no known associated factors 11/28/2012 None skin lesion Pertinent Findings Denies cough 11/28/2012 None skin lesion Pertinent Findings facial weakness 11/28/2012 occasional weakness of right side of face skin lesion Pertinent Findings Denies family history of neurocutaneous disorders 11/28/2012 None skin lesion Pertinent Findings Denies family history of atopy 11/28/2012 None skin lesion Pertinent Findings Denies weight loss 11/28/2012 None skin lesion Location labia minora 11/28/2012 None skin lesion Location labia majora 11/28/2012 None hypertension Quality chronic 05/31/2012 None hypertension Onset and Resolution ongoing 05/31/2012 None hypertension Blood Pressure Values pt checking blood pressure - see scanned document 05/31/2012 None well woman exam (40-65 years) Control hysterectomy 05/31/2012 None well woman exam (40-65 years) Control menopause 05/31/2012 None well woman exam (40-65 years) 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 05/31/2012 None well woman exam (40-65 years) Cardiovascular Risk Factors dyslipidemia 05/31/2012 None well woman exam (40-65 years) Cardiovascular Risk Factors family history of cardiovascular disease None well woman exam (40-65 years) Cardiovascular Risk Factors hypertension 05/31/2012 None well woman exam (40-65 years) Health Guidance colonoscopy/sigmoidoscopy 05/31/2012 None well woman exam (40-65 years) Health Guidance self-breast exam 05/31/2012 None well woman exam (40-65 years) Immunizations influenza vaccine (annually over 50 y.o.) 05/31/2012 None well woman exam (40-65 years) Lifestyle no history of physical abuse 05/31/2012 None well woman exam (40-65 years) Nutrition and Exercise balanced nutrition 05/31/2012 None well woman exam (40-65 years) Nutrition and Exercise minimal exercise 05/31/2012 None diabetes mellitus Test results Pt checking blood glucose at home, see scanned readings 2011 None diabetes mellitus Onset of Symptom onset as an adult 03/01/2012 None diabetes mellitus Severity mild 03/01/2012 None diabetes mellitus Blood glucose levels greater than 120 03/01/2012 None diabetes mellitus Glucose monitoring daily 03/01/2012 None diabetes mellitus Alleviating Factors medication 03/01/2012 None diabetes mellitus Alleviating Factors diet 03/01/2012 None blood pressure followup Quality chronic 03/01/2012 None blood pressure followup Onset and Resolution ongoing 03/01/2012 None blood pressure followup Onset of Symptom during adulthood 03/01/2012 None blood pressure followup Blood Pressure Values pt checking blood pressure - see scanned document 03/01 None blood pressure followup Severity mild 03/01/2012 None blood pressure followup Frequency of Episodes unchanged 03/01/2012 None blood pressure followup Triggers stress 03/01/2012 Helps care for her 's stepmother and her son with cerebral palsy. blood pressure followup Alleviating Factors medication 03/01/2012 None blood pressure followup Alleviating Factors diet changes 03/01/2012 None facial swelling Location diffusely 03/01/2012 None facial swelling Quality chronic 03/01/2012 None facial swelling Onset and Resolution ongoing 03/01/2012 None facial swelling Onset of Symptom 14 years ago 03/01/2012 None facial swelling Severity severe 03/01/2012 None facial swelling Frequency of Episodes unchanged 03/01/2012 None facial swelling Timing of Episodes upon awakening 03/01/2012 -states sometimes eyes will be swelled shut. facial swelling Triggers no known associated factors 03/01/2012 None hypertension Quality chronic 02/02/2012 None hypertension Onset and Resolution ongoing 02/02/2012 None diabetes mellitus Test results Pt checking blood glucose readings, did not bring results to clinic 02/02/2012 States she only checks her blood sugars if she "thinks she's overdone it." hypertension Onset of Symptom during adulthood 02/02/2012 None hypertension Blood Pressure Values " white coat" (home SBP<129 / DBP<84) 02/02/2012 States she takes it twice daily and it runs 120s/60s at home. hypertension Frequency of Episodes unchanged 02/02/2012 None hypertension Triggers no known associated factors 02/02/2012 None hypertension Alleviating Factors medication 02/02/2012 None diabetes mellitus Severity mild 02/02/2012 None diabetes mellitus Glucose monitoring occasional glucose testing 02/02/2012 None diabetes mellitus Alleviating Factors medication 02/02/2012 None diabetes mellitus Alleviating Factors diet 02/02/2012 None diabetes mellitus Nutrition ADA diet 02/02/2012 None diabetes mellitus Exercise minimal exercise 02/02/2012 -states she is able to exercise but she doesn't too much. Advance Directives No Advance Directive data Encounters Encounter Performer Location Codes Date ([id number]) [id number] EST. PATIENT, LEVEL IV Diagnosis: Essential (primary) hypertension[ICD10: I10] Diagnosis: Type 2 diabetes mellitus without complications[ICD10: E11.9] Diagnosis: Idiopathic pulmonary fibrosis[ICD10: J84.112] Diagnosis: Vitamin D deficiency, unspecified[ICD10: E55.9] Chiquis Christine MD, [facility] CPT-4: 87520 09/08/2018 ([id number]) [id number] EST. PATIENT, LEVEL IV Diagnosis: Type 2 diabetes mellitus with hyperglycemia[ICD10: E11.65] Diagnosis: Essential (primary) hypertension[ICD10: I10] Diagnosis: Idiopathic pulmonary fibrosis[ICD10: J84.112] Chiquis Christine MD, [facility] CPT-4: 01581 01/13/2018 [id number] EST. PATIENT, LEVEL IV Diagnosis: Type 2 diabetes mellitus with hyperglycemia[ICD10: E11.65] Malika Crhistine MD, [facility] CPT-4: 44775 12/01/2017 ([id number]) 18713 EST. PATIENT, LEVEL III Diagnosis: Essential (primary) hypertension[ICD10: I10] Diagnosis: Cough[ICD10: R05] Diagnosis: Idiopathic pulmonary fibrosis[ICD10: J84.112] Chiquis Christine MD, [facility] CPT-4: 05009 02/19/2017 ([id number]) 12836 EST. PATIENT, LEVEL IV Diagnosis: Cough[ICD10: R05] Diagnosis: Pneumonia, unspecified organism[ICD10: J18.9] Diagnosis: Essential (primary) hypertension[ICD10: I10] Diagnosis: Type 2 diabetes mellitus without complications[ICD10: E11.9] Chiquis Christine MD, [facility] CPT-4: 51875 10/30/2016 ([id number]) 25648 EST. PATIENT, LEVEL IV Diagnosis: Essential (primary) hypertension[ICD10: I10] Diagnosis: Type 2 diabetes mellitus without complications[ICD10: E11.9] Diagnosis: Encounter for immunization[ICD10: Z23] Diagnosis: Idiopathic pulmonary fibrosis[ICD10: J84.112] Chiquis Christine MD [facility] CPT-4: 51558 07/02/2016 ([id number]) 88523 EST. PATIENT, LEVEL IV Diagnosis: Essential (primary) hypertension[ICD10: I10] Diagnosis: Cough[ICD10: R05] Diagnosis: Type 2 diabetes mellitus without complications[ICD10: E11.9] Diagnosis: Idiopathic pulmonary fibrosis[ICD10: J84.112] Chiquis Christine MD, [facility] CPT-4: 34457 03/26/2016 ([id number]) 42177 EST. PATIENT, LEVEL IV Diagnosis: Essential (primary) hypertension[ICD10: I10] Diagnosis: Type 2 diabetes mellitus with hyperglycemia[ICD10: E11.65] Chiquis Christine MD, [facility] CPT-4: 33847 12/24/2015 ([id number]) 22585 EST. PATIENT, LEVEL IV Diagnosis: Type 2 diabetes mellitus with hyperglycemia[ICD10: E11.65] Diagnosis: Mixed incontinence[ICD10: N39.46] Diagnosis: Essential (primary) hypertension[ICD10: I10] Cihquis Christine MD [facility] CPT-4: 60082 11/22/2015 ([id number]) 66430 EST. PATIENT, LEVEL IV Diagnosis: ESSENTIAL HYPERTENSION[ICD9: 401.9] Diagnosis: Diabetes[ICD9: 250.00] Diagnosis: COPD (chronic obstructive pulmonary disease)[ICD9: 496] Diagnosis: Diarrhea[ICD9: 787.91] Billie Christine MD, [facility] CPT-4: 54068 05/13/2015 ([id number]) 83884 EST. PATIENT, LEVEL IV Diagnosis: ESOPHAGEAL REFLUX[ICD9: 530.81] Diagnosis: Hiatal hernia[ICD9: 553.3] Diagnosis: COUGH[ICD9: 786.2] Diagnosis: ESSENTIAL HYPERTENSION[ICD9: 401.9] Billie Christine MD, [facility] CPT-4: 60500 04/12/2014 [id number] EST. PATIENT, LEVEL IV Diagnosis: ESSENTIAL HYPERTENSION[SNOMED: 92032913] Diagnosis: Tachycardia[ICD9: 785.0] Diagnosis: Esophageal reflux[ICD9: 530.81] Diagnosis: Hoarseness of voice[ICD9: 784.42] Diagnosis: Hoarseness or changing voice[ICD9: 784.49] Billie Christine MD [facility] CPT-4: 80846 03/13/2014 ([id number]) 33388 EST. PATIENT, LEVEL IV Diagnosis: ESSENTIAL HYPERTENSION[SNOMED: 12941058] Diagnosis: DIABETES TYPE II[SNOMED: 522182220] Billie Christine MD [facility] CPT-4: 41878 02/08/2014 ([id number]) 60430 EST. PATIENT, LEVEL IV Diagnosis: ESSENTIAL HYPERTENSION[SNOMED: 60495823] Diagnosis: DIABETES TYPE II[SNOMED: 283449799] Diagnosis: HYPERLIPIDEMIA[ICD9: 272.4] Diagnosis: Mouth dryness[ICD9: 527.7] Billie Christine MD, [facility] CPT- 4: 32381 10/10/2013 ([id number]) [id number] EST. PATIENT, LEVEL III Diagnosis: ESSENTIAL HYPERTENSION[SNOMED: 83337162] Diagnosis: Rosacea[ICD9: 695.3] Billie Christine MD [facility] CPT-4: 56361 03/29/2013 [id number] EST. PATIENT, LEVEL II Diagnosis: SKIN DISORDER[ICD9: 709.9] Billie Christine MD [facility] CPT- 4: 51131 11/28/2012 ([id number]) [id number] EST. PATIENT, LEVEL IV Diagnosis: Vaginal Discharge[ICD9: 623.5] Diagnosis: Skin lesion[ICD9: 709.9] Diagnosis: Encounter for routine pelvic examination[ICD9: V72.31] Diagnosis: ESSENTIAL HYPERTENSION[SNOMED: 87299470] Billie Christine MD, [facility] CPT-4: 99827 05/31/2012 ([id number]) [id number] EST. PATIENT, LEVEL IV Diagnosis: ESSENTIAL HYPERTENSION[SNOMED: 44199629] Diagnosis: DIABETES TYPE II[SNOMED: 511217042] Diagnosis: Facial swelling[ICD9: 784.2] [facility] CPT- 4: 98269 03/01/2012 OFFICE VISIT, NEW - LEVEL 4 Diagnosis: ESSENTIAL HYPERTENSION[SNOMED: 51802396] Diagnosis: DIABETES TYPE II[SNOMED: 912571618] Diagnosis: Fibromyalgia[ICD9: 729.1] Diagnosis: Diarrhea[ICD9: 787.91] [facility] CPT-4: 12862 02/02/2012 Plan of Care Planned Activity Notes Codes Status Date Visit Plan: Hypertension - well controlled - continue with current medications, continue with no added salt diet. Pt has been encouraged to exercise daily. The pt has been advised to call the office if there are any acute concerns about change in blood pressure readings at home. Diabetes Mellitus - controlled - per recent FSBS reports. I have recommended for the patient to have follow up labs prior to the next office visit. The patient has been instructed to continue with current medications as previously directed, continue with regular FSBS monitoring to assure continued control of diabetes. Pt to call for any acute concerns, complaints, or if the blood glucose readings are starting to become less controlled. Vitamin d def-restart vitamin d daily 09/08/2018 Appointment: Chiquis Ordoñez WPtel: [facility]5 [phone] (30 min) Complex 09/08/2018 Patient Education: Patient Medication Summary Completed 09/08/2018 Patient Education: Diabetes Completed 09/08/2018 Appointment: Injection 08/11/2018 Patient Education: Patient Medication Summary Completed 08/11/2018 Appointment: Chiquis Ordoñez WPtel: [phone] (15 min) Moderate 05/19/2018 Visit Plan: Hypertension - well controlled - continue with current medications, continue with no added salt diet. Pt has been encouraged to exercise daily. The pt has been advised to call the office if there are any acute concerns about change in blood pressure readings at home. Diabetes Mellitus - controlled - per recent FSBS reports. I have recommended for the patient to have follow up labs prior to the next office visit. The patient has been instructed to continue with current medications as previously directed, continue with regular FSBS monitoring to assure continued control of diabetes. Pt to call for any acute concerns, complaints, or if the blood glucose readings are starting to become less controlled. Pulmonary fibrosis-discussed sleep study -patient will consider 01/13/2018 Appointment: Chiquis Ordoñez WPtel: [phone] [phone] (30 min) Complex 01/13/2018 Patient Education: Patient Medication Summary Completed 01/13/2018 Visit Plan: Diabetes Mellitus - controlled - per recent FSBS reports. I have recommended for the patient to have follow up labs prior to the next office visit. The patient has been instructed to continue with current medications as previously directed, continue with regular FSBS monitoring to assure continued control of diabetes. Pt to call for any acute concerns, complaints, or if the blood glucose readings are starting to become less controlled. 12/01/2017 Appointment: Malika Allen WPtel: [address] [facility] (30 min) Complex 12/01/2017 Patient Education: Patient Medication Summary Completed 12/01/2017 Visit Plan: Medicare Exam - today we discussed the patients past history, immunizations, preventative exams/evaluations - colonoscopy, fecal occult blood testing, routine labs for renal function, glucose, cholesterol, osteoporosis evaluations, cardiovascular testing and cancer screenings. We have also discussed mental health and the signs/symptoms of depression. The patient was advised of home safety evaluations and the need to make sure that as the aging process continues, we need to be aware of different ways to make the home a safer place to reside. The patient has also been counseled that exercise is necessary - and of utmost importance as we age to help decrease fall risk and to maintain independece in the home. Today we discussed the need for the patient to create paperwork for Advanced directives as well as for the patient to provide this office with a copy of her DOPA paperwork for health care surrogate. 09/29/2017 Appointment: Chiquis Ordoñez WPtel[facility] [address] [phone] [facility] - Annual Wellness Visit 09/29/2017 Patient Education: Patient Medication Summary Completed 09/29/2017 Appointment: Injection 09/09/2017 Patient Education: Patient Medication Summary Completed 09/09/2017 Appointment: Injection 08/13/2017 Patient Education: Patient Medication Summary Completed 08/13/2017 Visit Plan: Hypertension - well controlled - continue with current medications, continue with no added salt diet. Pt has been encouraged to exercise daily. The pt has been advised to call the office if there are any acute concerns about change in blood pressure readings at home. Cough-due for repeat CT scan in March-repeat zpack today-call next week if not better 02/19/2017 Patient Education: Patient Medication Summary Completed 02/19/2017 Appointment: Chiquis Ordoñez WPtel: [phone] [facility] [place] [address] (15 min) Moderate 11/12/2016 Visit Plan: Pneumonia - Pt has been diagnosed with pneumonia by physical exam. A chest xray has been ordered as have antibiotics. The pt is aware of the diagnosis and the need for acute treatment of this illness. Hypertension - well controlled - continue with current medications, continue with no added salt diet. Pt has been encouraged to exercise daily. The pt has been advised to call the office if there are any acute concerns about change in blood pressure readings at home. Diabetes Mellitus - controlled - per recent FSBS reports. I have recommended for the patient to have follow up labs prior to the next office visit. The patient has been instructed to continue with current medications as previously directed, continue with regular FSBS monitoring to assure continued control of diabetes. Pt to call for any acute concerns, complaints, or if the blood glucose readings are starting to become less controlled. 10/30/2016 Appointment: Chiquis Ordoñez WPtel: [phone] [phone] (15 min) Moderate 10/30/2016 Patient Education: Patient Medication Summary Completed 10/30/2016 Visit Plan: Medicare Exam - today we discussed the patients past history, immunizations, preventative exams/evaluations - colonoscopy, fecal occult blood testing, routine labs for renal function, glucose, cholesterol, osteoporosis evaluations, cardiovascular testing and cancer screenings. We have also discussed mental health and the signs/symptoms of depression. The patient was advised of home safety evaluations and the need to make sure that as the aging process continues, we need to be aware of different ways to make the home a safer place to reside. The patient has also been counseled that exercise is necessary - and of utmost importance as we age to help decrease fall risk and to maintain independece in the home. Today we discussed the need for the patient to create paperwork for Advanced directives as well as for the patient to provide this office with a copy of her DOPA paperwork for health care surrogate. 09/23/2016 Appointment: Chiquis Ordoñez WPtel: [facility]5 [place] [phone] [facility] - Annual Wellness Visit 09/23/2016 Patient Education: Patient Medication Summary Completed 09/23/2016 Visit Plan: Hypertension - well controlled - continue with current medications, continue with no added salt diet. Pt has been encouraged to exercise daily. The pt has been advised to call the office if there are any acute concerns about change in blood pressure readings at home. Diabetes Mellitus - I have recommended for the patient to have follow up labs prior to the next office visit. The patient has been instructed to continue with current medications as previously directed, continue with regular FSBS monitoring to assure continued control of diabetes. Pt to call for any acute concerns, complaints, or if the blood glucose readings are starting to become less controlled. 07/02/2016 Appointment: Chiquis Ordoñez WPtel: [facility]5 [phone] (15 min) Moderate 07/02/2016 Patient Education: Patient Medication Summary Completed 07/02/2016 Patient Education: Hypertension Completed 07/02/2016 Visit Plan: Hypertension - well controlled - continue with current medications, continue with no added salt diet. Pt has been encouraged to exercise daily. The pt has been advised to call the office if there are any acute concerns about change in blood pressure readings at home. Cough-kenalog injection today in the office-call if symptoms do not improve or if any worse. Diabetes Mellitus - controlled - per recent FSBS reports. I have recommended for the patient to have follow up labs prior to the next office visit. The patient has been instructed to continue with current medications as previously directed, continue with regular FSBS monitoring to assure continued control of diabetes. Pt to call for any acute concerns, complaints, or if the blood glucose readings are starting to become less controlled. 03/26/2016 Appointment: (30 min) Complex 03/26/2016 Patient Education: Patient Medication Summary Completed 03/26/2016 Patient Education: Hypertension Completed 03/26/2016 Visit Plan: Hypertension - well controlled - continue with current medications, continue with no added salt diet. Pt has been encouraged to exercise daily. The pt has been advised to call the office if there are any acute concerns about change in blood pressure readings at home. Diabetes Mellitus - controlled - per recent FSBS reports. I have recommended for the patient to have follow up labs prior to the next office visit. The patient has been instructed to continue with current medications as previously directed, continue with regular FSBS monitoring to assure continued control of diabetes. Pt to call for any acute concerns, complaints, or if the blood glucose readings are starting to become less controlled. 12/24/2015 Appointment: (30 min) Complex 12/24/2015 Patient Education: Patient Medication Summary Completed 12/24/2015 Patient Education: Hypertension Completed 12/24/2015 Visit Plan: Diabetes Mellitus - Uncontrolled - per recent FSBS reports. I have recommended for the patient to have follow up labs prior to the next office visit. The patient has been instructed to continue with current medications as previously directed, continue with regular FSBS monitoring to assure continued control of diabetes. Pt to call for any acute concerns, complaints, or if the blood glucose readings are starting to become less controlled. I have recommended for the patient to follow more strictly to the diabetic diet as discussed in clinic to allow for greater blood glucose control. Hypertension - well controlled - continue with current medications, continue with no added salt diet. Pt has been encouraged to exercise daily. The pt has been advised to call the office if there are any acute concerns about change in blood pressure readings at home. Urinary incontinence-start myrbetriq- samples provided 11/22/2015 Appointment: (15 min) Moderate 11/22/2015 Patient Education: Patient Medication Summary Completed 11/22/2015 Patient Education: Hypertension Completed 11/22/2015 Appointment: Billie Christine WPtel: [facility] (30 min) Complex 11/14/2015 Appointment: (30 min) Complex 11/08/2015 Appointment: (15 min) Moderate 06/17/2015 Visit Plan: Hypertension - elevated today - continue with current medications, continue with no added salt diet. Pt has been encouraged to exercise daily. The pt has been advised to call the office if there are any acute concerns about change in blood pressure readings at home. Diabetes Mellitus - controlled - per recent FSBS reports. I have recommended for the patient to have follow up labs prior to the next office visit. The patient has been instructed to continue with current medications as previously directed, continue with regular FSBS monitoring to assure continued control of diabetes. Pt to call for any acute concerns, complaints, or if the blood glucose readings are starting to become less controlled. Diarrhea-stop metformin-start probiotic COPD-not well controlled-kenalog injection today in the office-start prednisone tomorrow as directed-patient needs long acting medication such as Advair, Symbicort, Breo, etc but wants to wait until she sees the map compiler next month. 05/13/2015 Appointment: (15 min) Moderate 05/13/2015 Patient Education: Patient Medication Summary Completed 05/13/2015 Patient Education: Hypertension Completed 05/13/2015 Care Plan: COMPLETE CBC AUTOMATED LOINC : 06341-6 Ordered 05/13/2015 Visit Plan: Esophageal Reflux - the patient has been counseled against excessive intake of caffiene, spicy foods, peppermint, and cinnamon - all of which can exacerbate esophageal reflux. The patient is to take medications as prescribed and call the office if the symptoms are not improving. History of Hiatal Hernia - referral to Dr. Shukla for evaluation, may need to consider other treatment options. Cough - no change in current management. HTN - refill hctz and potassium, no change in other medications. 04/12/2014 Appointment: Billie Christine WPtel: [address] [place], [place] [id number] Follow up 04/12/2014 Patient Education: Patient Medication Summary Completed 04/12/2014 Patient Education: Hypertension Completed 04/12/2014 Visit Plan: Hypertension - well controlled - continue with current medications, continue with no added salt diet. Pt has been encouraged to exercise daily. The pt has been advised to call the office if there are any acute concerns about change in blood pressure readings at home. Tachycardia - uncontrolled - pt to increase coreg to 12.5mg - 1.5 pills twice daily. Esophageal Reflux - the patient has been counseled against excessive intake of caffiene, spicy foods, peppermint, and cinnamon - all of which can exacerbate esophageal reflux. The patient is to take medications as prescribed and call the office if the symptoms are not improving. pt to stop priolosec and start on protonix and carafate. The patient has been advised she needs to be evaluated by Dr. Carr for potential vocal cord irritation or injury, but she states that she would like to wait to see how she does with the medications that have been changed - starting on protonix and carafate. She reports that she has had a work -up in the past and was told that her vocal cords are "thickened" but no mass was on the vocal cords, and she never had follow up on this scope. 03/13/2014 Appointment: Bill[facility] Christine [facility]Ptel[phone] [facility] Follow [facility] 03/13/2014 Patient Education: Patient Medication Summary Completed 03/13/2014 Patient Education: Hypertension Completed 03/13/2014 Visit Plan: Hypertension - uncontrolled - the patient's medications have been modified as documented in the visit note. The patient has been counseled to cut back on salt in diet for a no added salt diet, low fat diet, start an exercise program with low weight bearing exercises and higher aerobic activity for heart health. The patient is to check blood pressure readings as an outpatient and either fax, call, or email the readings to the office next week for practitioner to review. The pt is to call for acute concerns. Bystolic is too expensive - pt wants to stop the bystolic and start on coreg instead - we will do this change as her blood pressure is uncontrolled as is her heart rate. Diabetes Mellitus - controlled - per recent FSBS reports. I have recommended for the patient to have follow up labs prior to the next office visit. The patient has been instructed to continue with current medications as previously directed, continue with regular FSBS monitoring to assure continued control of diabetes. Pt to call for any acute concerns, complaints, or if the blood glucose readings are starting to become less controlled. 02/08/2014 Appointment: Billie Christine [facility]Ptel[phone] [facility] [facility] 02/08/2014 Patient Education: Patient Medication Summary Completed 02/08/2014 Patient Education: Hypertension Completed 02/08/2014 Visit Plan: Hypertension - well controlled - continue with current medications, continue with no added salt diet. Pt has been encouraged to exercise daily. The pt has been advised to call the office if there are any acute concerns about change in blood pressure readings at home. Diabetes Mellitus - controlled - per recent FSBS reports. I have recommended for the patient to have follow up labs prior to the next office visit. The patient has been instructed to continue with current medications as previously directed, continue with regular FSBS monitoring to assure continued control of diabetes. Pt to call for any acute concerns, complaints, or if the blood glucose readings are starting to become less controlled. Hyperlipidemia - pt has been counseled about appropriate diet, exercise, and need for low fat food choices. I have discussed the need for the patient to take medications as prescribed. If the patient has negative side effects from the medication, they are to CALL the office and not abruptly discontinue the medication without discussion with a practicioner in the office. We will check labs in 3-6 months for follow up on the patient's chronic medical problem and to assure normal liver response to medications. 10/10/2013 Appointment: Billie Christine WPtel: [phone] [facility] Follow up 10/10/2013 Patient Education: Patient Medication Summary Completed 10/10/2013 Patient Education: Hypertension Completed 10/10/2013 Appointment: Billie Christine WPtel: [phone] [facility] [place] Injection 07/18/2013 Patient Education: Patient Medication Summary Completed 07/18/2013 Visit Plan: Hypertension - well controlled - continue with current medications, continue with no added salt diet. Pt has been encouraged to exercise daily. The pt has been advised to call the office if there are any acute concerns about change in blood pressure readings at home. rosacea - rx for tetracycline for prn use when she has a rosacea flair. 03/29/2013 Appointment: Billie Christine WPtel: [address] [facility] [place] Follow up 03/29/2013 Patient Education: Patient Medication Summary Completed 03/29/2013 Patient Education: Hypertension Completed 03/29/2013 Visit Plan: Wound Instructions - Pt was instruced to keep the wound clean, wash with antibacterial soap, use triple antibiotic ointment, call if redness, pustular drainage, or any other acute conerns. lesion biopsied from 3 oclock position of the right labia 11/28/2012 Appointment: EmmettBillie WPtel: [address] [facility] Established Patient Preventative visit 11/28/2012 Patient Education: Patient Medication Summary Completed 11/28/2012 Appointment: Chiquis Ordoñez WPtel: [phone] [phone] [place] [address] Injection 08/15/2012 Patient Education: Patient Medication Summary Completed 08/15/2012 Visit Plan: Well Adult Female - exam completed. Pap and gc/ chlamydia and breast exam completed. Pt will be called with results of her testing. She was advised to continue with yearly annual exams. Safe sex practices discussed during office visit today. Call if any abnormal gynecologic issues during the next year, otherwise, RTC yearly or prn. Yeast infection of vagina- start on diflucan 150 mg daily x 5 days. Dark skin lesions of vagina- recommended re-eval in 6 months. Hypertension - well controlled - continue with current medications, continue with no added salt diet. Pt has been encouraged to exercise daily. The pt has been advised to call the office if there are any acute concerns about change in blood pressure readings at home. 05/31/2012 Appointment: Billie Christine WPtel: [phone] [facility] Well [facility] 05/31/2012 Patient Education: Patient Medication Summary Completed 05/31/2012 Patient Education: High Blood Pressure: Essential Hypertension Completed 2011 Visit Plan: Hypertension - well controlled - continue with current medications, continue with no added salt diet. Pt has been encouraged to exercise daily. The pt has been advised to call the office if there are any acute concerns about change in blood pressure readings at home. Diabetes Mellitus - controlled - per recent FSBS reports. I have recommended for the patient to have follow up labs prior to the next office visit. The patient has been instructed to continue with current medications as previously directed, continue with regular FSBS monitoring to assure continued control of diabetes. Pt to call for any acute concerns, complaints, or if the blood glucose readings are starting to become less controlled. Facial Swelling - Pt has had extensive work-up - I am wondering about Mast Cell Disease. 03/01/2012 Appointment: Billie Christine WPtel[facility] [address] [facility] Other 03/01/2012 Patient Education: Patient Medication Summary Completed 03/01/2012 Patient Education: High Blood Pressure: Essential Hypertension Completed 2011 Visit Plan: Hypertension - well controlled - continue with current medications, continue with no added salt diet. Pt has been encouraged to exercise daily. The pt has been advised to call the office if there are any acute concerns about change in blood pressure readings at home. Diabetes Mellitus - controlled - per recent FSBS reports. I have recommended for the patient to have follow up labs prior to the next office visit. The patient has been instructed to continue with current medications as previously directed, continue with regular FSBS monitoring to assure continued control of diabetes. Pt to call for any acute concerns, complaints, or if the blood glucose readings are starting to become less controlled. Fibromyalgia - pt has been counseled about healthy diet, exercise, and adequate rest in the evening/nighttime for optimal health and improvement of the fibromyalgia symptoms. Pt is to use medication for pain control and symptom management sparingly. Samples of cymbalta-patient is well controlled with medication Diarrhea-chronic secondary to ulcerative colitis-due for colonoscopy-appt with Dr. Talavera 02/02/2012 Appointment: Chiquis Ordoñez WPtel: [facility] [facility] [place] New Patient 02/02/2012 Patient Education: Patient Medication Summary Completed 02/02/2012 Patient Education: High Blood Pressure: Essential Hypertension Completed 2011 Instructions Comment . Wound Instructions - Pt was instruced to keep the wound clean, wash with antibacterial soap, use triple antibiotic ointment, call if redness, pustular drainage, or any other acute conerns. lesion biopsied from 3 oclock position of the right labia . Hypertension - well controlled - continue with current medications, continue with no added salt diet. Pt has been encouraged to exercise daily. The pt has been advised to call the office if there are any acute concerns about change in blood pressure readings at home. rosacea - rx for tetracycline for prn use when she has a rosacea flair. We will schedule you for a mammogram at [facility]. February 07 at 8:30am Appointment with Dr May for colonscopy referral. February 28 at 2:00pm Labs due-RX provided-take to mag lab and have drawn when you are fasting for at least 8-12 hours. Appointment with us in 1 month well woman or sooner if you need anything. . Hypertension - well controlled - continue with current medications, continue with no added salt diet. Pt has been encouraged to exercise daily. The pt has been advised to call the office if there are any acute concerns about change in blood pressure readings at home. Diabetes Mellitus - controlled - per recent FSBS reports. I have recommended for the patient to have follow up labs prior to the next office visit. The patient has been instructed to continue with current medications as previously directed, continue with regular FSBS monitoring to assure continued control of diabetes. Pt to call for any acute concerns, complaints, or if the blood glucose readings are starting to become less controlled. Fibromyalgia - pt has been counseled about healthy diet, exercise, and adequate rest in the evening/nighttime for optimal health and improvement of the fibromyalgia symptoms. Pt is to use medication for pain control and symptom management sparingly. Samples of cymbalta-patient is well controlled with medication Diarrhea-chronic secondary to ulcerative colitis-due for colonoscopy-appt with Dr. Talavera . Hypertension - well controlled - continue with current medications, continue with no added salt diet. Pt has been encouraged to exercise daily. The pt has been advised to call the office if there are any acute concerns about change in blood pressure readings at home. Diabetes Mellitus - I have recommended for the patient to have follow up labs prior to the next office visit. The patient has been instructed to continue with current medications as previously directed, continue with regular FSBS monitoring to assure continued control of diabetes. Pt to call for any acute concerns, complaints, or if the blood glucose readings are starting to become less controlled. CALL WEDNESDAY WITH UPDATE . Hypertension - well controlled - continue with current medications, continue with no added salt diet. Pt has been encouraged to exercise daily. The pt has been advised to call the office if there are any acute concerns about change in blood pressure readings at home. Cough-kenalog injection today in the office-call if symptoms do not improve or if any worse. Diabetes Mellitus - controlled - per recent FSBS reports. I have recommended for the patient to have follow up labs prior to the next office visit. The patient has been instructed to continue with current medications as previously directed, continue with regular FSBS monitoring to assure continued control of diabetes. Pt to call for any acute concerns, complaints, or if the blood glucose readings are starting to become less controlled. . Hypertension - well controlled - continue with current medications, continue with no added salt diet. Pt has been encouraged to exercise daily. The pt has been advised to call the office if there are any acute concerns about change in blood pressure readings at home. Diabetes Mellitus - controlled - per recent FSBS reports. I have recommended for the patient to have follow up labs prior to the next office visit. The patient has been instructed to continue with current medications as previously directed, continue with regular FSBS monitoring to assure continued control of diabetes. Pt to call for any acute concerns, complaints, or if the blood glucose readings are starting to become less controlled. Hyperlipidemia - pt has been counseled about appropriate diet, exercise, and need for low fat food choices. I have discussed the need for the patient to take medications as prescribed. If the patient has negative side effects from the medication, they are to CALL the office and not abruptly discontinue the medication without discussion with a practicioner in the office. We will check labs in 3-6 months for follow up on the patient's chronic medical problem and to assure normal liver response to medications. decrease diovan to 160mg (1/2 of the 320mg pill) daily. increase the coreg to 1.5 pills twice daily. start on carafate (sucralfate is generic name) 10mL of liquid four times daily - take about 30 minutes before meals and before bedtime. stop prilosec and start on pantoprazole (brand name of protonix) 40mg daily. . Hypertension - well controlled - continue with current medications, continue with no added salt diet. Pt has been encouraged to exercise daily. The pt has been advised to call the office if there are any acute concerns about change in blood pressure readings at home. Tachycardia - uncontrolled - pt to increase coreg to 12.5mg - 1.5 pills twice daily. Esophageal Reflux - the patient has been counseled against excessive intake of caffiene, spicy foods, peppermint, and cinnamon - all of which can exacerbate esophageal reflux. The patient is to take medications as prescribed and call the office if the symptoms are not improving. pt to stop priolosec and start on protonix and carafate. The patient has been advised she needs to be evaluated by Dr. Carr for potential vocal cord irritation or injury, but she states that she would like to wait to see how she does with the medications that have been changed - starting on protonix and carafate. She reports that she has had a work-up in the past and was told that her vocal cords are "thickened" but no mass was on the vocal cords, and she never had follow up on this scope. Myrbetriq 25mg daily-this is for your bladder-samples given -call if this is helpful and we can send in a a prescription STOP METFORMIN DUE TO DIARRHEA START GLIMEPIRIDE 1 MG DAILY MONTIOR BLOOD SUGARS AT HOME AND BRING LOG TO APPT IN 1 MONTH . Diabetes Mellitus - Uncontrolled - per recent FSBS reports. I have recommended for the patient to have follow up labs prior to the next office visit. The patient has been instructed to continue with current medications as previously directed, continue with regular FSBS monitoring to assure continued control of diabetes. Pt to call for any acute concerns, complaints, or if the blood glucose readings are starting to become less controlled. I have recommended for the patient to follow more strictly to the diabetic diet as discussed in clinic to allow for greater blood glucose control. Hypertension - well controlled - continue with current medications, continue with no added salt diet. Pt has been encouraged to exercise daily. The pt has been advised to call the office if there are any acute concerns about change in blood pressure readings at home. Urinary incontinence-start myrbetriq-samples provided . Well Adult Female - exam completed. Pap and gc/ chlamydia and breast exam completed. Pt will be called with results of her testing. She was advised to continue with yearly annual exams. Safe sex practices discussed during office visit today. Call if any abnormal gynecologic issues during the next year, otherwise, RTC yearly or prn. Yeast infection of vagina- start on diflucan 150 mg daily x 5 days. Dark skin lesions of vagina- recommended re-eval in 6 months. Hypertension - well controlled - continue with current medications, continue with no added salt diet. Pt has been encouraged to exercise daily. The pt has been advised to call the office if there are any acute concerns about change in blood pressure readings at home. STOP METFORMIN START PROBIOTIC TWICE DAILY CALL IF DIARRHEA PERSISTS FOLLOW UP APPOINTMENT IN 1 MONTH-NEED TO FOLLOW UP ON DIARRHEA, COUGH, AND BLOOD SUGARS . Hypertension - elevated today - continue with current medications, continue with no added salt diet. Pt has been encouraged to exercise daily. The pt has been advised to call the office if there are any acute concerns about change in blood pressure readings at home. Diabetes Mellitus - controlled - per recent FSBS reports. I have recommended for the patient to have follow up labs prior to the next office visit. The patient has been instructed to continue with current medications as previously directed, continue with regular FSBS monitoring to assure continued control of diabetes. Pt to call for any acute concerns, complaints, or if the blood glucose readings are starting to become less controlled. Diarrhea-stop metformin-start probiotic COPD-not well controlled-kenalog injection today in the office-start prednisone tomorrow as directed-patient needs long acting medication such as Advair, Symbicort, Breo, etc but wants to wait until she sees the map compiler next month. . Hypertension - well controlled - continue with current medications, continue with no added salt diet. Pt has been encouraged to exercise daily. The pt has been advised to call the office if there are any acute concerns about change in blood pressure readings at home. Diabetes Mellitus - controlled - per recent FSBS reports. I have recommended for the patient to have follow up labs prior to the next office visit. The patient has been instructed to continue with current medications as previously directed, continue with regular FSBS monitoring to assure continued control of diabetes. Pt to call for any acute concerns, complaints, or if the blood glucose readings are starting to become less controlled. Vitamin d def-restart vitamin d daily . Hypertension - well controlled - continue with current medications, continue with no added salt diet. Pt has been encouraged to exercise daily. The pt has been advised to call the office if there are any acute concerns about change in blood pressure readings at home. Diabetes Mellitus - controlled - per recent FSBS reports. I have recommended for the patient to have follow up labs prior to the next office visit. The patient has been instructed to continue with current medications as previously directed, continue with regular FSBS monitoring to assure continued control of diabetes. Pt to call for any acute concerns, complaints, or if the blood glucose readings are starting to become less controlled. Facial Swelling - Pt has had extensive work-up - I am wondering about Mast Cell Disease. . Hypertension - well controlled - continue with current medications, continue with no added salt diet. Pt has been encouraged to exercise daily. The pt has been advised to call the office if there are any acute concerns about change in blood pressure readings at home. Diabetes Mellitus - controlled - per recent FSBS reports. I have recommended for the patient to have follow up labs prior to the next office visit. The patient has been instructed to continue with current medications as previously directed, continue with regular FSBS monitoring to assure continued control of diabetes. Pt to call for any acute concerns, complaints, or if the blood glucose readings are starting to become less controlled. referral to Dr. Shukla for EGD . Esophageal Reflux - the patient has been counseled against excessive intake of caffiene, spicy foods, peppermint, and cinnamon - all of which can exacerbate esophageal reflux. The patient is to take medications as prescribed and call the office if the symptoms are not improving. History of Hiatal Hernia - referral to Dr. Shukla for evaluation, may need to consider other treatment options. Cough - no change in current management. HTN - refill hctz and potassium, no change in other medications. Obtain follow-up CT scan of chest ordered by Dr. Mejía in October. Z-pack for cough Add Mucinex daily for cough . Hypertension - well controlled - continue with current medications, continue with no added salt diet. Pt has been encouraged to exercise daily. The pt has been advised to call the office if there are any acute concerns about change in blood pressure readings at home. Cough-due for repeat CT scan in March-repeat zpack today-call next week if not better . Pneumonia - Pt has been diagnosed with pneumonia by physical exam. A chest xray has been ordered as have antibiotics. The pt is aware of the diagnosis and the need for acute treatment of this illness. Hypertension - well controlled - continue with current medications, continue with no added salt diet. Pt has been encouraged to exercise daily. The pt has been advised to call the office if there are any acute concerns about change in blood pressure readings at home. Diabetes Mellitus - controlled - per recent FSBS reports. I have recommended for the patient to have follow up labs prior to the next office visit. The patient has been instructed to continue with current medications as previously directed, continue with regular FSBS monitoring to assure continued control of diabetes. Pt to call for any acute concerns, complaints, or if the blood glucose readings are starting to become less controlled. . Hypertension - well controlled - continue with current medications, continue with no added salt diet. Pt has been encouraged to exercise daily. The pt has been advised to call the office if there are any acute concerns about change in blood pressure readings at home. Diabetes Mellitus - controlled - per recent FSBS reports. I have recommended for the patient to have follow up labs prior to the next office visit. The patient has been instructed to continue with current medications as previously directed, continue with regular FSBS monitoring to assure continued control of diabetes. Pt to call for any acute concerns, complaints, or if the blood glucose readings are starting to become less controlled. Pulmonary fibrosis-discussed sleep study-patient will consider . Medicare Exam - today we discussed the patients past history, immunizations, preventative exams/evaluations - colonoscopy, fecal occult blood testing, routine labs for renal function, glucose, cholesterol, osteoporosis evaluations, cardiovascular testing and cancer screenings. We have also discussed mental health and the signs/symptoms of depression. The patient was advised of home safety evaluations and the need to make sure that as the aging process continues, we need to be aware of different ways to make the home a safer place to reside. The patient has also been counseled that exercise is necessary - and of utmost importance as we age to help decrease fall risk and to maintain independece in the home. Today we discussed the need for the patient to create paperwork for Advanced directives as well as for the patient to provide this office with a copy of her DOPA paperwork for health care surrogate. . Hypertension - uncontrolled - the patient's medications have been modified as documented in the visit note. The patient has been counseled to cut back on salt in diet for a no added salt diet, low fat diet, start an exercise program with low weight bearing exercises and higher aerobic activity for heart health. The patient is to check blood pressure readings as an outpatient and either fax , call, or email the readings to the office next week for practitioner to review. The pt is to call for acute concerns. Bystolic is too expensive - pt wants to stop the bystolic and start on coreg instead - we will do this change as her blood pressure is uncontrolled as is her heart rate. Diabetes Mellitus - controlled - per recent FSBS reports. I have recommended for the patient to have follow up labs prior to the next office visit. The patient has been instructed to continue with current medications as previously directed, continue with regular FSBS monitoring to assure continued control of diabetes. Pt to call for any acute concerns, complaints, or if the blood glucose readings are starting to become less controlled. . Medicare Exam - today we discussed the patients past history, immunizations, preventative exams/evaluations - colonoscopy, fecal occult blood testing, routine labs for renal function, glucose, cholesterol, osteoporosis evaluations, cardiovascular testing and cancer screenings. We have also discussed mental health and the signs/symptoms of depression. The patient was advised of home safety evaluations and the need to make sure that as the aging process continues, we need to be aware of different ways to make the home a safer place to reside. The patient has also been counseled that exercise is necessary - and of utmost importance as we age to help decrease fall risk and to maintain independece in the home. Today we discussed the need for the patient to create paperwork for Advanced directives as well as for the patient to provide this office with a copy of her DOPA paperwork for health care surrogate. . Diabetes Mellitus - controlled - per recent FSBS reports. I have recommended for the patient to have follow up labs prior to the next office visit. The patient has been instructed to continue with current medications as previously directed, continue with regular FSBS monitoring to assure continued control of diabetes. Pt to call for any acute concerns, complaints, or if the blood glucose readings are starting to become less controlled.
--- OUTSIDE RECORDS SUMMARY | 2018-11-19 09:55 | XMS REPORT | CCD ---
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[address]: 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 Never smoker 02/02/[address]: 628751489 Never drinks alcohol 02/02/2012 Has the patient [...] Start Date Stop Date Status Fill Instructions prednisone 5 mg tablet RxNorm: 303328 1 Tablet(s) PO daily No Stop Date Active pantoprazole 40 mg tablet,delayed release RxNorm: 807968 1 Tablet(s) PO daily 09/08/2018 No Stop Date Active losartan 100 mg tablet RxNorm: 821318 1 Tablet(s) PO daily 01/07/2019 Active carvedilol 25 mg tablet RxNorm: 455306 1 Tablet(s) PO BID 01/1301/07/2019 Active hydrochlorothiazide 25 mg tablet RxNorm: 880373 1 Tablet(s) PO daily 01/13/2018 01/07/2019 Active glimepiride 1 mg tablet RxNorm: 870502 1 Tablet(s) PO daily 01/07/2019 Active doxazosin 4 mg tablet RxNorm: 849724 1 Tablet(s) PO BID 201701/07/2019 Active amlodipine 10 mg tablet RxNorm: 679125 1 Tablet(s) PO daily 01/07/2019 Active potassium chloride ER 20 mEq tablet,extended release RxNorm: 585227 1 Tablet(s) PO BID 01/13/2018 01/07/2019 Active pantoprazole 40 mg tablet,delayed release RxNorm: 966118 1 Tablet(s) PO BID 01/13/2018 09/07/2018 Inactive azithromycin 250 mg tablet RxNorm: 517827 1 Tablet(s) PO daily 02/19/2017 02/23/2017 Inactive Take two the first day Zithromax Z-Yasir 250 mg tablet RxNorm: 981711 1 Tablet(s) PO UD 10/30/2016 02/18/2017 Inactive zpack cefdinir 300 mg capsule RxNorm: 820144 1 Capsule(s) PO BID 03/201711/05/2016 Inactive potassium chloride ER 10 mEq capsule,extended release RxNorm: 671993 2 Capsule(s) PO QHS 09/23/2016 09/17/2017 Inactive losartan 100 mg tablet RxNorm: 772386 1 Tablet(s) PO daily 05/201609/24/2017 Inactive Kenalog 40 mg/mL suspension for injection RxNorm: 7466949 1 Milliliter(s) Inj 03/26/2016 03/26/2016 Inactive doxazosin 4 mg tablet RxNorm: 403118 1 Tablet(s) PO BID 201504/03/2017 Inactive glimepiride 1 mg tablet RxNorm: 860809 1 Tablet(s) PO daily 04/03/2017 Inactive pantoprazole 40 mg tablet,delayed release RxNorm: 681164 1 Tablet(s) PO daily 01/10/2016 04/03/2017 Inactive amlodipine 10 mg tablet RxNorm: 956016 1 Tablet(s) PO daily or BID based on bp 01/10/2016 04/03/2017 Inactive hydrochlorothiazide 25 mg tablet RxNorm: 376348 1 Tablet(s) PO daily 01/10/2016 04/03/2017 Inactive carvedilol 25 mg tablet RxNorm: 649880 1 Tablet(s) PO BID 01/0904/03/2017 Inactive carvedilol 25 mg tablet RxNorm: 674394 1 Tablet(s) PO BID 12/2301/09/2016 Inactive doxazosin 4 mg tablet RxNorm: 383946 1 Tablet(s) PO BID 201501/09/2016 Inactive amlodipine 10 mg tablet RxNorm: 208477 1 Tablet(s) PO daily or BID based on bp 12/24/2015 01/09/2016 Inactive glimepiride 1 mg tablet RxNorm: 569180 1 Tablet(s) PO daily 01/09/2016 Inactive Myrbetriq 25 mg tablet,extended release RxNorm: 3610481 1 Tablet(s) PO daily 11/22/2015 07/01/2016 Inactive Breeze 2 Test Strips RxNorm: MISCELLANEOUS TEST ONCE DAILY No Stop Date Active Kenalog 40 mg/mL suspension for injection RxNorm: 8159237 Milliliter(s) Inj 05/13/2015 05/13/2015 Inactive prednisone 20 mg tablet RxNorm: 721843 2 Tablet(s) PO daily 05/15/2015 Inactive Lactobacillus acidophilus 1 billion cell tablet RxNorm: 235137 1 Tablet(s) PO BID 05/13/2015 06/11/2015 Inactive carvedilol 25 mg tablet RxNorm: 816886 1 Tablet(s) PO BID 02/2809/25/2015 Inactive Cymbalta 60 mg capsule,delayed release RxNorm: 685810 1 Capsule(s) PO daily 01/02/2015 05/12/2015 Inactive metformin 1,000 mg tablet RxNorm: 961076 1 Tablet(s) PO BID 08/201505/12/2015 Inactive doxazosin 4 mg tablet RxNorm: 128284 1 Tablet(s) PO BID 201404/01/2015 Inactive amlodipine 10 mg tablet RxNorm: 788341 1 Tablet(s) PO daily 08/201512/23/2015 Inactive Breeze 2 Test Strips RxNorm: Miscellaneous test once daily 06/19/2015 Inactive carvedilol 25 mg tablet RxNorm: 375513 1 Tablet(s) PO BID 06/0412/30/2014 Inactive Fish Oil 1,000 mg capsule RxNorm: 3 Capsule(s) PO daily 201312/23/2015 Inactive potassium chloride ER 10 mEq capsule,extended release RxNorm: 447687 1 Capsule(s) PO QHS 04/12/2014 04/06/2015 Inactive hydrochlorothiazide 25 mg tablet RxNorm: 193164 1 Tablet(s) PO daily 04/12/2014 07/05/2015 Inactive carvedilol 12.5 mg tablet RxNorm: 925235 1.5 Tablet(s) PO BID 03/13/2014 2014 Inactive Carafate 100 mg/mL oral suspension RxNorm: 111337 10 Milliliter(s) PO QID 03/13/2014 05/12/2015 Inactive disepnse qs x 30 days pantoprazole 40 mg tablet,delayed release RxNorm: 118012 1 Tablet(s) PO daily 03/13/2014 03/07/2015 Inactive Diovan 160 mg tablet RxNorm: 497724 1 Tablet(s) PO 03/13/2014 05/12/2015 Inactive carvedilol 12.5 mg tablet RxNorm: 984799 1 Tablet(s) PO BID 03/12/2014 Inactive Diovan 320 mg tablet RxNorm: 404722 1 Tablet(s) PO daily 201303/12/2014 Inactive Influenza Virus Vaccine 0.5 mL RxNorm: IM 07/18/2013 07/18/2013 Inactive Breeze 2 Test Strips RxNorm: Miscellaneous test once daily 03/201306/05/2014 Inactive minocycline 50 mg tablet RxNorm: 174930 1 Tablet(s) PO BID PRN use prn for rosacea flair 03/29/2013 02/07/2014 Inactive tetracycline 250 mg capsule RxNorm: 122258 1 Capsule(s) PO BID PRN 03/29/2013 03/29/2013 Inactive Flagyl 500 mg tablet RxNorm: 587497 1 Tablet(s) PO BID 201212/21/2012 Inactive Cymbalta 60 mg capsule,delayed release RxNorm: 876164 1 Capsule(s) PO daily 11/08/2012 11/02/2013 Inactive Cymbalta 60 mg capsule,delayed release RxNorm: 774167 1 Capsule(s) PO daily 06/15/2012 11/07/2012 Inactive fluconazole 150 mg tablet RxNorm: 103221 1 Tablet(s) PO daily 05/31/2012 06/04/2012 Inactive potassium chloride ER 10 mEq capsule,extended release RxNorm: 357446 1 Capsule(s) PO QHS 05/31/2012 05/25/2013 Inactive Vitamin D3 2,000 unit tablet RxNorm: 323402 5 Tablet(s) PO daily 05/31/2012 02/07/2014 Inactive Bystolic 5 mg Tab RxNorm: 841132 1 Tablet(s) PO daily 201101/04/2014 Inactive Diovan 320 mg tablet RxNorm: 794152 1 Tablet(s) PO daily 201102/23/2013 Inactive omeprazole 20 mg Cap, delayed release RxNorm: 023678 1 Capsule(s) PO daily 03/01/2012 02/23/2013 Inactive Lipitor 10 mg Tab RxNorm: 044962 1 Tablet(s) PO daily 201102/18/2012 Inactive Lipitor 10 mg Tab RxNorm: 410633 1 Tablet(s) PO daily 201102/08/2012 Inactive azathioprine 50 mg tablet RxNorm: 122486 2 Tablet(s) PO QAM and 1 Tablet PO QPM No Start Date Active carboxymethylcellulose sodium 0.5 % Eye Drops RxNorm: 3880044 2 Drop(s) OPH TID No Start Date Active fenofibrate 160 mg tablet RxNorm: 374109 1 Tablet(s) PO daily No Start Date Active Aldara 5 % topical cream packet RxNorm: 250735 1 Application TOP 5x per week for skin cancer No Start Date Active Bystolic 5 mg tablet RxNorm: 340724 1 Tablet(s) PO daily No Start Date 02/07/2014 Inactive metformin 1,000 mg Tab RxNorm: 022758 1 Tablet(s) PO BID No Start Date 01/01/2015 Inactive Prilosec 20 mg capsule,delayed release RxNorm: 717541 1 Capsule(s) PO daily No Start Date 03/12/2014 Inactive GenTeal PM 85 %-15 % Eye Ointment RxNorm: 607834 .25 inch OPH QHS No Start Date 12/23/2015 Inactive Breeze 2 Test Strips RxNorm: Miscellaneous test once daily No Start Date 05/29/2013 Inactive Prevalite 4 gram Oral Packet RxNorm: 271967 1 packet PO daily No Start Date 05/30/2012 Inactive Vitamin D3 2,000 unit tablet RxNorm: 382303 5 Tablet(s) PO daily No Start Date 05/30/2012 Inactive loperamide 2 mg Cap RxNorm: 136615 1 Capsule(s) PO BID PRN No Start Date 02/07/2014 Inactive amlodipine 10 mg tablet RxNorm: 822878 1 Tablet(s) PO daily No Start Date 01/01/2015 Inactive Pravachol 40 mg Tab RxNorm: 180949 1/2 Tablet(s) PO daily No Start Date 02/07/2014 Inactive hydrochlorothiazide 25 mg Tab RxNorm: 123077 1 Tablet(s) PO daily No Start Date 04/11/2014 Inactive losartan 100 mg tablet RxNorm: 483814 1 Tablet(s) PO daily No Start Date 07/01/2016 Inactive Bystolic 5 mg Tab RxNorm: 219736 1 Tablet(s) PO daily No Start Date 02/29/2012 Inactive prednisone 2.5 mg tablet RxNorm: 625835 1 Tablet(s) PO daily No Start Date 09/07/2018 Inactive Diovan 320 mg Tab RxNorm: 994800 1 Tablet(s) PO daily No Start Date 02/29/2012 Inactive Vitamin D3 2,000 unit Cap RxNorm: 911616 1 Capsule(s) PO BID No Start Date 05/30/2012 Inactive doxazosin 4 mg Tab RxNorm: 475973 1 Tablet(s) PO BID No Start Date 01/01/2015 Inactive Vitamin D3 5,000 unit tablet RxNorm: 873070 2 Tablet(s) PO daily No Start Date 12/23/2015 Inactive omeprazole 20 mg Cap, delayed release RxNorm: 874408 1 Capsule(s) PO daily No Start Date 02/29/2012 Inactive leflunomide 20 mg tablet RxNorm: 287896 1 Tablet(s) PO daily No Start Date 09/07/2018 Inactive carvedilol 25 mg Tab RxNorm: 380203 1 Tablet(s) PO BID No Start Date 01/03/2014 Inactive Cymbalta 60 mg capsule,delayed release RxNorm: 983389 1 Capsule(s) PO daily No Start Date 06/14/2012 Inactive Spiriva with HandiHaler 18 mcg & inhalation capsules RxNorm: 895694 1 Capsule(s) INH daily No Start Date 12/23/2015 Inactive Medication Administered Medication Codes Instructions Start Date Status Kenalog 40 mg/mL suspension for injection RxNorm: 7199112 1Milliliter 03/26/2016 No longer Active Kenalog 40 mg/mL suspension for injection RxNorm: 1343939 Milliliter 05/13/2015 No longer Active Influenza Virus [...] Code Item Item Code Result Date %Hba1C Hto209 % HbA1c 85514-2 6.4 % 01/13/2018 %Hba1C Xvn296 Gluc Ave 137 mg/dL 01/13/2018 Comp Metabolic Xne164 NA 140 mEq/L 10/30/2016 Comp Metabolic Bll089 K 3.8 mEq/L 10/30/2016 Comp Metabolic Wnc562 CL 101 mEq/L 10/30/2016 Comp Metabolic Rxa872 CO2 32.0 mEq/L 10/30/2016 Comp Metabolic Wxo388 ANION GAP 11 10/30/2016 Comp Metabolic Ejs684 GLUCOSE 160 mg/dL 10/30/2016 Comp Metabolic Rqf844 Creat 0.7 mg/dL 10/30/2016 Comp Metabolic Uih439 eGFR 94 ml/min/1.73m2 10/30/2016 Comp Metabolic Uhf899 BUN 22 mg/dL 10/30/2016 Comp Metabolic Duy866 B/C Ratio 33.8 Ratio 10/30/2016 Comp Metabolic Tgc566 CALCIUM 9.7 mg/dL 10/30/2016 Comp Metabolic Bjt682 ALK PHOS 58 U/L 10/30/2016 Comp Metabolic Yzs725 AST(SGOT) 18 U/L 10/30/2016 Comp Metabolic Mmd670 ALT(SGPT) 21 U/L 10/30/2016 Comp Metabolic Itx091 BILI T 0.4 mg/dL 10/30/2016 Comp Metabolic Hiu237 ALBUMIN 4.1 g/dL 10/30/2016 Comp Metabolic Xlj046 TPRO 7.0 g/dL 10/30/2016 Comp Metabolic Rxu377 GLOB 2.9 g/dL 10/30/2016 Comp Metabolic Zkv588 A/G Ratio 1.4 Ratio 10/30/2016 Comp Metabolic Jly249 Osmo 286 mOsmo 10/30/2016 Cbc With Differential Ord2 WBC 9.09 K/ul 10/30/2016 Cbc With Differential Ord2 RBC 4.88 M/ul 10/30/2016 Cbc With Differential Ord2 HGB 14.4 g/dl 10/30/2016 Cbc With Differential Ord2 Neut% 70.9 % 10/30/2016 Cbc With Differential Ord2 HCT 42.5 % 10/30/2016 Cbc With Differential Ord2 MCV 87.1 fl 10/30/2016 Cbc With Differential Ord2 Lymph% 18.4 % 10/30/2016 Cbc With Differential Ord2 [place]% 6.8 % 10/30/2016 Cbc With Differential Ord2 MCH 29.5 pg 10/30/2016 Cbc With Differential Ord2 Eos% 3.5 % 10/30/2016 Cbc With Differential Ord2 MCHC 33.9 pg 10/30/2016 Cbc With Differential Ord2 Baso% 0.4 % 10/30/2016 Cbc With Differential Ord2 PLT 251 K/ul 10/30/2016 Cbc With Differential Ord2 Neut ABS# 6.44 K/ul 10/30/2016 Cbc With Differential Ord2 RDW 14.3 % 10/30/2016 Cbc With Differential Ord2 Lymph ABS# 1.67 K/ul 10/30/2016 Cbc With Differential Ord2 [place] ABS# 0.6 K/ul 10/30/2016 Cbc With Differential Ord2 Eos ABS# 0.3 K/ul 10/30/2016 Cbc With Differential Ord2 Baso ABS# 0.0 K/ul 10/30/2016 %Hba1C Utj625 % HbA1c 69304-9 5.9 % 10/30/2016 %Hba1C Qkw561 Gluc Ave 123 mg/dL 10/30/2016 Review of Systems System Result Effective [...] clear 12/24/2015 None Full Exam - General 1995 Ears/Nose/Throat [...] nourished 10/10/2013 None Full Exam - General 1995 Eyes conjunctiva /eyelids Overall: conjunctiva clear 10/10/2013 None Full Exam - General 1994 Eyes conjunctiva /eyelids Overall: cornea clear 10/10/2013 None Full Exam - General 1994 Eyes conjunctiva /eyelids Overall: eyelids normal 10/10/2013 None Full Exam - General 1994 Eyes pupils and irises Overall: pupils equal, round, reactive to light and accomodation 10/10/2013 None Full Exam - General 1995 Ears/Nose/Throat otoscopic exam Overall: external auditory canals clear 10/10/2013 None Full Exam - General 1995 Ears/Nose/Throat otoscopic exam Overall: tympanic membranes clear 10/10/2013 None Full Exam - General 1995 Ears/Nose/Throat oral cavity/pharynx/larynx Overall: oral mucosa clear 10/10/2013 None Full Exam - General 1995 Ears/Nose/Throat oral cavity/pharynx/larynx Overall: oropharyngeal mucosa clear 10/10/2013 None Full Exam - General 1994 Ears/Nose/Throat oral cavity/pharynx/larynx Overall: no masses 10/10/2013 [...] gait 10/10/2013 None Full Exam - General 1994 Musculoskeletal gait and station Overall: normal station 10/10/2013 None Full Exam - General 1995 Integument inspection of skin Overall: no rash, lesions 10/10/2013 None Full Exam - General 1995 Neurologic deep tendon reflexes Overall: deep tendon reflexes intact 10/10/2013 None Full Exam - General 1995 Neurologic cranial nerves Overall: crainial nerves 2 - 12 grossly intact 10/10/2013 None Full Exam - General 1994 Psychiatric orientation/consciousness Overall: oriented to person, place and time 10/10/2013 None Full Exam - General 1995 Constitutional general appearance Overall: well developed 03/29/2013 None Full Exam - General 1995 Constitutional general appearance Overall: in no acute distress 03/29/2013 None Full Exam - General 1995 Constitutional general appearance Overall: well nourished 03/29/2013 None Full Exam - General 1995 Eyes conjunctiva /eyelids Overall: conjunctiva clear 03/29/2013 None Full Exam - General 1995 Eyes conjunctiva /eyelids Overall: cornea clear 03/29/2013 None Full Exam - General 1994 Eyes conjunctiva /eyelids Overall: eyelids normal 03/29/2013 None Full Exam - General 1994 Eyes pupils and irises Overall: pupils equal, round, reactive to light and accomodation 03/29/2013 None Full Exam - General 1995 Ears/Nose/Throat otoscopic exam Overall: external auditory canals clear 03/29/2013 None Full Exam - General 1995 Ears/Nose/Throat otoscopic exam Overall: tympanic membranes clear 03/29/2013 None Full Exam - General 1995 Ears/Nose/Throat oral cavity/pharynx/larynx Overall: oral mucosa clear 03/29/2013 None Full Exam - General 1995 Ears/Nose/Throat oral cavity/pharynx/larynx Overall: oropharyngeal mucosa clear 03/29/2013 None Full Exam - General 1995 Ears/Nose/Throat oral cavity/pharynx/larynx Overall: no masses 03/29/2013 [...] nourished 03/01/2012 None Full Exam - General 1995 Eyes conjunctiva /eyelids Overall: conjunctiva clear 03/01/2012 [...] 1994 Ears/Nose/Throat oral cavity/pharynx/larynx Overall: no masses 03/01/2012 [...] Formatting Model/CDA Sections, Assigned to/Promise Cullen CPT-4: 62539Hqhcsge 08/11/2018 PPPS, SUBSEQ VISIT CPT -4: G0439 09/29/2017 ADMIN PNEUMOCOCCAL VACCINE SNOMED CT: 03766041 CPT-4: G0009 09/09/2017 PNEUMOCOCCAL VACC [address]: 52079151 CPT-4: 96535 09/09/2017 ADMIN INFLUENZA VIRUS VAC CPT-4: G0008 08/13/2017 FLU VACC PRSV FREE INC ANTIG CPT-4: 07948 08/13/2017 PPPS, SUBSEQ VISIT CPT -4: G0439 09/23/2016 ADMIN INFLUENZA VIRUS VAC CPT-4: G0008 07/02/2016 FLU VACC PRSV FREE INC ANTIG Formatting Model/CDA Sections, Assigned to/Promise Cullen CPT-4: 82234Tzkhnic 07/02/2016 TRIAMCINOLONE ACET INJ NOS CPT-4: J3301 03/26/2016 TRIAMCINOLONE ACET INJ NOS CPT-4: J3301 05/13/2015 ADMIN INFLUENZA VIRUS VAC CPT-4: G0008 07/18/2013 FLULAVAL VACC, 3 YRS & >, IM CPT-4: Q2036 07/18/2013 PRESCRIP TRANSMIT VIA ERX SY CPT-4: G8553 03/29/2013 BIOPSY SKIN LESION CPT -4: 29582 11/28/2012 ADMIN INFLUENZA VIRUS VAC CPT-4: G0008 08/15/2012 FLULAVAL VACC, 3 YRS & >, IM CPT-4: Q2036 08/15/2012 PRESCRIP TRANSMIT VIA ERX SY CPT-4: G8553 05/31/2012 Vital Signs Date Vital 09/08/2018 Blood Pressure 1: 154/70 Code : 8480-6 BMI: 27.5 Code : 40157-1 Heart Rate 1 : 70 bpm Height: 5'6" SpO2: 97% Weight: 168 lbs 01/13/2018 Blood Pressure 1: 132/64 Code : 8480-6 BMI: 27.0 Code : 09251-2 Heart Rate 1 : 73 bpm Height: 5'6" SpO2: 98% Weight: 165 lbs 12/01/2017 Blood Pressure 1: 142/78 Code : 8480-6 BMI: 26.5 Code : 69206-1 Heart Rate 1 : 88 bpm Height: 5'6" SpO2: 97% Weight: 162 lbs 09/29/2017 Blood Pressure 1: 140/64 Code : 8480-6 BMI: 26.9 Code : 40518-3 Heart Rate 1 : 76 bpm Height: 5'6" SpO2: 97% Waist Measure (cm): 81 cm Weight: 164 lbs 02/19/2017 Blood Pressure 1: 144/68 Code : 8480-6 BMI: 26.5 Code : 25551-2 Heart Rate 1 : 76 bpm Height: 5'6" SpO2: 93% Weight: 161 lbs 8 oz 10/30/2016 Blood Pressure 1: 144/60 Code : 8480-6 BMI: 25.9 Code : 52270-6 Heart Rate 1 : 78 bpm Height: 5'6" SpO2: 95% Weight: 158 lbs 09/23/2016 Blood Pressure 1: 134/76 Code : 8480-6 BMI: 25.7 Code : 27409-7 Heart Rate 1 : 76 bpm Height: 5'6" SpO2: 97% Weight: 157 lbs 07/02/2016 Blood Pressure 1: 136/80 Code : 8480-6 BMI: 26.4 Code : 36408-7 Heart Rate 1 : 76 bpm Height: 5'6" SpO2: 94% Weight: 161 lbs 03/26/2016 Blood Pressure 1: 140/82 Code : 8480-6 BMI: 26.1 Code : 89647-8 Heart Rate 1 : 72 bpm Height: 5'6" SpO2: 90% Weight: 159 lbs 12/24/2015 Blood Pressure 1: 140/76 Code : 8480-6 BMI: 25.7 Code : 98071-4 Heart Rate 1 : 83 bpm Height: 5'6" SpO2: 93% Weight: 157 lbs 11/22/2015 Blood Pressure 1: 140/80 Code : 8480-6 BMI: 25.6 Code : 67061-6 Heart Rate 1 : 76 bpm Height: 5'6" SpO2: 91% Weight: 156 lbs 05/13/2015 Blood Pressure 1: 160/84 Code : 8480-6 Blood Pressure 2: 150/84 Code: 8480-6 Heart Rate 1: 77 bpm SpO2: 97% Weight: 151 lbs 04/12/2014 Blood Pressure 1: 142/70 Code : 8480-6 BMI: 26.9 Code : 45642-6 Heart Rate 1 : 92 bpm Height: 5'6" Weight: 164 lbs 03/13/2014 Blood Pressure 1: 134/68 Code : 8480-6 BMI: 25.7 Code : 40239-4 Heart Rate 1 : 87 bpm Height: 5'6" SpO2: 96% Weight: 157 lbs 02/08/2014 Blood Pressure 1: 158/78 Code : 8480-6 BMI: 26.2 Code : 47230-5 Heart Rate 1 : 100 bpm Height: 5'6" Weight: 160 lbs 10/10/2013 Blood Pressure 1: 128/68 Code : 8480-6 BMI: 27.4 Code : 75088-1 Heart Rate 1 : 80 bpm Height: 5'6" Weight: 167 lbs 03/29/2013 Blood Pressure 1: 136/72 Code : 8480-6 BMI: 27.5 Code : 81054-9 Heart Rate 1 : 80 bpm Height: 5'6" Weight: 168 lbs 11/28/2012 Blood Pressure 1: 132/80 Code : 8480-6 Heart Rate 1: 76 bpm Weight: 164 lbs 05/31/2012 Blood Pressure 1: 130/68 Code : 8480-6 Heart Rate 1: 76 bpm Weight: 161 lbs 03/01/2012 Blood Pressure 1: 142/68 Code : 8480-6 BMI: 26.2 Code : 46071-4 Heart Rate 1 : 64 bpm Height: 5'6" Respiratory Rate: 16 bpm Weight: 160 lbs 02/02/2012 Blood Pressure 1: 118/58 Code : 8480-6 BMI: 26.4 Code : 27558-0 Heart Rate 1 : 60 bpm Height: [...] one day so she could go to [place]. 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 PATIENT, LEVEL IV Diagnosis: Essential (primary) hypertension[ICD10: I10] Diagnosis: Type 2 diabetes mellitus without complications[ICD10: E11.9] Diagnosis: Idiopathic pulmonary fibrosis[ICD10: J84.112] Diagnosis: Vitamin D deficiency, unspecified[ICD10: E55.9] Chiquis Christine MD, [facility] CPT-4: 05673 09/08/2018 ([id number]) 41683 EST. PATIENT, LEVEL IV Diagnosis: Type 2 diabetes mellitus with hyperglycemia[ICD10: E11.65] Diagnosis: Essential (primary) hypertension[ICD10: I10] Diagnosis: Idiopathic pulmonary fibrosis[ICD10: J84.112] Chiquis Christine MD, [facility] CPT-4: 80852 01/13/2018 17811 EST. PATIENT, LEVEL IV Diagnosis: Type 2 diabetes mellitus with hyperglycemia[ICD10: E11.65] Malika Christine MD, [facility] CPT-4: 11995 12/01/2017 ([id number]) 77533 EST. PATIENT, LEVEL III Diagnosis: Essential (primary) hypertension[ICD10: I10] Diagnosis: Cough[ICD10: R05] Diagnosis: Idiopathic pulmonary fibrosis[ICD10: J84.112] Chiquis Christine MD, [facility] CPT-4: 67469 02/19/2017 ([id number]) 31603 EST. PATIENT, LEVEL IV Diagnosis: Cough[ICD10: R05] Diagnosis: Pneumonia, unspecified organism[ICD10: J18.9] Diagnosis: Essential (primary) hypertension[ICD10: I10] Diagnosis: Type 2 diabetes mellitus without complications[ICD10: E11.9] Chiquis Christine MD, [facility] CPT-4: 81466 10/30/2016 ([id number]) 05248 EST. PATIENT, LEVEL IV Diagnosis: Essential (primary) hypertension[ICD10: I10] Diagnosis: Type 2 diabetes mellitus without complications[ICD10: E11.9] Diagnosis: Encounter for immunization[ICD10: Z23] Diagnosis: Idiopathic pulmonary fibrosis[ICD10: J84.112] Chiquis Christine MD, [facility] CPT-4: 02820 07/02/2016 ([id number]) 30950 EST. PATIENT, LEVEL IV Diagnosis: Essential (primary) hypertension[ICD10: I10] Diagnosis: Cough[ICD10: R05] Diagnosis: Type 2 diabetes mellitus without complications[ICD10: E11.9] Diagnosis: Idiopathic pulmonary fibrosis[ICD10: J84.112] Chiquis Christine MD, [facility] CPT-4: 92258 03/26/2016 ([id number]) 46118 EST. PATIENT, LEVEL IV Diagnosis: Essential (primary) hypertension[ICD10: I10] Diagnosis: Type 2 diabetes mellitus with hyperglycemia[ICD10: E11.65] Chiquis Christine MD, [facility] CPT-4: 98027 12/24/2015 ([id number]) 09968 EST. PATIENT, LEVEL IV Diagnosis: Type 2 diabetes mellitus with hyperglycemia[ICD10: E11.65] Diagnosis: Mixed incontinence[ICD10: N39.46] Diagnosis: Essential (primary) hypertension[ICD10: I10] Chiquis Christine MD, [facility] CPT-4: 72440 11/22/2015 ([id number]) 50541 EST. PATIENT, LEVEL IV Diagnosis: ESSENTIAL HYPERTENSION[ICD9: 401.9] Diagnosis: Diabetes[ICD9: 250.00] Diagnosis: COPD (chronic obstructive pulmonary disease)[ICD9: 496] Diagnosis: Diarrhea[ICD9: 787.91] Billie Christine MD, [facility] CPT-4: 81582 05/13/2015 ([id number]) 60050 EST. PATIENT, LEVEL IV Diagnosis: ESOPHAGEAL REFLUX[ICD9: 530.81] Diagnosis: Hiatal hernia[ICD9: 553.3] Diagnosis: COUGH[ICD9: 786.2] Diagnosis: ESSENTIAL HYPERTENSION[ICD9: 401.9] Billie Christine MD, [facility] CPT-4: 52149 04/12/2014 12131 EST. PATIENT, LEVEL IV Diagnosis: ESSENTIAL HYPERTENSION[SNOMED: 52960324] Diagnosis: Tachycardia[ICD9: 785.0] Diagnosis: Esophageal reflux[ICD9: 530.81] Diagnosis: Hoarseness of voice[ICD9: 784.42] Diagnosis: Hoarseness or changing voice[ICD9: 784.49] Billie Christine MD, [facility] CPT-4: 43063 03/13/2014 ([id number]) 65308 EST. PATIENT, LEVEL IV Diagnosis: ESSENTIAL HYPERTENSION[SNOMED: 70355895] Diagnosis: DIABETES TYPE II[SNOMED: 599452324] Billie Christine MD, [facility] CPT-4: 95224 02/08/2014 ([id number]) 56048 EST. PATIENT, LEVEL IV Diagnosis: ESSENTIAL HYPERTENSION[SNOMED: 35607014] Diagnosis: DIABETES TYPE II[SNOMED: 508109482] Diagnosis: HYPERLIPIDEMIA[ICD9: 272.4] Diagnosis: Mouth dryness[ICD9: 527.7] Billie Christine MD, [facility] CPT- 4: 61274 10/10/2013 ([id number]) 19812 EST. PATIENT, LEVEL III Diagnosis: ESSENTIAL HYPERTENSION[SNOMED: 04613376] Diagnosis: Rosacea[ICD9: 695.3] Billie Christine MD, [facility] CPT-4: 93755 03/29/2013 83500 EST. PATIENT, LEVEL II Diagnosis: SKIN DISORDER[ICD9: 709.9] Billie Christine MD, [facility] CPT- 4: 28774 11/28/2012 ([id number]) 01648 EST. PATIENT, LEVEL IV Diagnosis: Vaginal Discharge[ICD9: 623.5] Diagnosis: Skin lesion[ICD9: 709.9] Diagnosis: Encounter for routine pelvic examination[ICD9: V72.31] Diagnosis: ESSENTIAL HYPERTENSION[SNOMED: 41650187] Billie Christine MD, [facility] CPT-4: 06313 05/31/2012 ([id number]) 26502 EST. PATIENT, LEVEL IV Diagnosis: ESSENTIAL HYPERTENSION[SNOMED: 23995367] Diagnosis: DIABETES TYPE II[SNOMED: 647694709] Diagnosis: Facial swelling[ICD9: 784.2] [facility] CPT- 4: 89125 03/01/2012 OFFICE VISIT, NEW - LEVEL 4 Diagnosis: ESSENTIAL HYPERTENSION[SNOMED: 81670652] Diagnosis: DIABETES TYPE II[SNOMED: 641573139] Diagnosis: Fibromyalgia[ICD9: 729.1] Diagnosis: Diarrhea[ICD9: 787.91] [facility] CPT-4: 53241 02/02/2012 Plan of Care Planned Activity Notes [...] d daily 09/08/2018 Appointment: Chiquis Ordoñez WPtel: [phone] (30 min) Complex 09/08/2018 Patient Education: Patient Medication Summary Completed 09/08/2018 Patient Education: Diabetes Completed 09/08/2018 Appointment: Jono 08/11/2018 Patient Education: Patient Medication Summary Completed 08/11/2018 Appointment: Chiquis Ordoñez WPtel: [phone] (15 min) Moderate 05/19/2018 Visit Plan: Hypertension [...] consider 01/13/2018 Appointment: Chiquis Ordoñez [facility]Ptel[phone] [phone] (30 min) Complex 01/13/2018 Patient Education: Patient [...] less controlled. 12/01/2017 Appointment: Mal[facility] Allen [phone] (30 min) Complex 12/01/2017 Patient Education: Patient [...] care surrogate. 09/29/2017 Appointment: Chiquis Ordo[facility]ez [facility]el[facility] [phone] [phone] [facility] - Annual Wellness Visit 09/29/2017 Patient [...] Summary Completed 02/19/2017 Appointment: Chiquis Ordoñez WPtel: [phone] [phone] [place] [address] (15 min) Moderate 11/12/2016 Visit Plan: Pneumonia [...] less controlled. 10/30/2016 Appointment: Chiquis Ordoñez WPtel: [phone] [phone] (15 min) Moderate 10/30/2016 Patient Education: Patient [...] care surrogate. 09/23/2016 Appointment: Chiquis Ordoñez WPtel: [phone] [phone] [facility] - Annual Wellness Visit 09/23/2016 Patient [...] less controlled. 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 05/13/2015 Appointment: (15 min) Moderate 05/13/2015 Patient Education: Patient Medication Summary Completed 05/13/2015 Patient Education: Hypertension Completed 05/13/2015 Care Plan: COMPLETE CBC AUTOMATED LOINC : 01692-5 Ordered 05/13/2015 Visit Plan: Esophageal Reflux - [...] other medications. 04/12/2014 Appointment: Bill[facility] Christine [phone] [facility] [facility] 04/12/2014 Patient Education: Patient Medication [...] scope. 03/13/2014 App[facility]ment: [phone] [facility] [facility] 03/13/2014 Patient Education: Patient Medication [...] less controlled. 02/08/2014 Appointment: [phone] [facility] Follow [facility] 02/08/2014 Patient Education: Patient Medication [...] medications. 10/10/2013 App[facility]ment: Bill[phone] [facility] Follow [facility] 10/10/2013 Patient Education: Patient Medication Summary Completed 10/10/2013 Patient Education: Hypertension Completed 10/10/2013 App[facility]ment: Bill[phone] [facility] [facility] 07/18/2013 Patient Education: Patient Medication Summary [...] flair. 03/29/2013 Appointment: [phone] [facility] Follow [facility] 03/29/2013 Patient Education: Patient Medication Summary Completed 03/29/2013 Patient Education: Hypertension Completed 03/29/2013 Visit Plan: Wound Instructions - Pt was instruced to keep the wound clean, wash with antibacterial soap, use triple antibiotic ointment, call if redness, pustular drainage, or any other acute conerns. lesion biopsied from 3 oclock position of the right labia 11/28/2012 Appointment: Billie Christine WPtel: [phone] [facility] Established Patient Preventative visit 11/28/2012 Patient Education: Patient Medication Summary Completed 11/28/2012 Appointment: Matt Ordoñezhanie WPtel: [phone] [phone] Injection 08/15/2012 Patient Education: Patient Medication Summary [...] at home. 05/31/2012 Appointment: Billie Christine WPtel: [phone] [facility] Well Woman 05/31/2012 Patient Education: Patient Medication [...] Cell Disease. 03/01/2012 Appointment: Bill[facility] Christine [facility]el[phone] [facility] Other 03/01/2012 Patient Education: Patient Medication Summary [...] [place] 02/02/2012 Appointment: Chiquis Ordoñez [facility]Ptel[facility] [phone] [phone] New Patient 02/02/2012 Patient Education: Patient Medication [...] will schedule you for a mammogram at [facility]. February 07 at 8:30am Appointment with Dr [...] wants to wait until she sees the hydraulic pile hammer operator next month. . Hypertension - well controlled [...]
--- OUTSIDE RECORDS SUMMARY | 2018-11-19 09:59 | XMS REPORT | Continuity of Care Document ---
Author Author [facility] Organization [facility] Address Unknown Phone Unavailable Allergies Active Description Code Type Severity Reaction Onset Reported/Identified Relationship to Patient Clinical Status Yes clonidine [id number] Drug Allergy Unknown N/A 05/04/2014 Medications There is no data. 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 05/04/2014 DASHA GUERRERO MD Ot 553.3 DIAPHRAGMATIC HERNIA 03/25/2015 YVES HERNANDEZ MD Ot 496 04/11/2015 YVES HERNANDEZ MD Ot 496 09/25/2015 YVES HERNANDEZ MD, Ot J84.112 10/17/2015 YVES HERNANDEZ MD, Ot J84.112 03/25/2016 Ot V76.12 OTH SCREEN MAMMO-MALIGN NEOPLASM OF ANDRESSA 03/25/2016 Ot V72.84 EXAM PRE- OPERATIVE NOS 03/25/2016 DASHA GUERRERO MD Ot V72.84 EXAM PRE-OPERATIVE NOS 03/25/2016 YVES HERNANDEZ MD Ot 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 03/25/2016 Ot 786.05 SHORTNESS OF BREATH 03/25/2016 YVES HERNANDEZ MD Ot 496 CHR AIRWAY OBSTRUCT NEC 03/25/2016 YVES HERNANDEZ MD Ot 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 04/17/2016 LEWIS KENDALL MD Ot J45.20 MILD INTERMITTENT ASTHMA, UNCOMPLICATED 04/17/2016 LEWIS KENDALL MD Ot J45.20 MILD INTERMITTENT ASTHMA, UNCOMPLICATED 04/13/2017 Ot V76.12 OTH SCREEN MAMMO-MALIGN NEOPLASM OF ANDRESSA 04/13/2017 Ot V72.84 EXAM PRE- OPERATIVE NOS 04/13/2017 DASHA GUERRERO MD Ot V72.84 EXAM PRE-OPERATIVE NOS 04/13/2017 YVES HERNANDEZ MD Ot 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 04/13/2017 Ot 786.05 SHORTNESS OF BREATH 04/13/2017 YVES HERNANDEZ MD Ot 496 CHR AIRWAY OBSTRUCT NEC 04/13/2017 YVES HERNANDEZ MD Ot 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 04/13/2017 LEWIS KENDALL MD, Ot J45.20 MILD INTERMITTENT ASTHMA, UNCOMPLICATED 05/24/2017 LEWIS KENDALL MD Ot J84.10 PULMONARY FIBROSIS, UNSPECIFIED 05/25/2017 LEWIS KENDALL MD Ot J84.10 PULMONARY FIBROSIS, UNSPECIFIED 05/25/2017 LEWIS KENDALL MD Ot J84.10 PULMONARY FIBROSIS, UNSPECIFIED 04/29/2018 DASHA GUERRERO MD Ot V72.84 EXAM PRE-OPERATIVE NOS 04/29/2018 YVES HERNANDEZ MD Ot 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 04/29/2018 Ot 786.05 SHORTNESS OF BREATH 04/29/2018 YVES HERNANDEZ MD Ot 496 CHR AIRWAY OBSTRUCT NEC 04/29/2018 YVES HERNANDEZ MD Ot 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 04/29/2018 LEWIS KENDALL MD Ot J45.20 MILD INTERMITTENT ASTHMA, UNCOMPLICATED 04/29/2018 LEWIS KENDALL MD Ot J84.10 PULMONARY FIBROSIS, UNSPECIFIED 04/29/2018 DASHA GUERRERO MD Ot V72.84 EXAM PRE-OPERATIVE NOS 04/29/2018 YVES HERNANDEZ MD Ot 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 04/29/2018 Ot 786.05 SHORTNESS OF BREATH 04/29/2018 YVES HERNANDEZ MD Ot 496 CHR AIRWAY OBSTRUCT NEC 04/29/2018 YVES HERNANDEZ MD Ot 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 04/29/2018 LEWIS KENDALL MD Ot J45.20 MILD INTERMITTENT ASTHMA, UNCOMPLICATED 04/29/2018 LEWIS KENDALL MD Ot J84.10 PULMONARY FIBROSIS, UNSPECIFIED 05/05/2018 LEWIS KENDALL MD Ot J44.9 CHRONIC OBSTRUCTIVE PULMONARY DISEASE, U 05/05/2018 LEWIS KENDALL MD Ot J45.909 UNSPECIFIED ASTHMA, UNCOMPLICATED 05/05/2018 LEWIS KENDALL MD Ot 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 Results There is no data. Encounters ACCT No. Visit Date/Time Discharge Status Pt. Type Provider Facility Loc./Unit Complaint [id number] 11/09/2018 10:00:00 11/09/2018 23:59:59 CLS Preadmit YVES HERNANDEZ MD [facility] RT J84.115 RESPIRATORY BRONCHIOLITIS [id number] 10/05/2018 08:41:00 10/05/2018 23:59:59 CLS Preadmit YVES HERNANDEZ MD [facility] RT MILD INTERMITENT ASTHMA [id number] 05/04/2018 09:27:00 05/04/2018 23:59:59 CLS Outpatient LEWIS KENDALL MD [facility] CARD SOB [id number] 04/08/2018 07:12:00 04/08/2018 23:59:59 CLS Preadmit LEWIS KENDALL MD [facility] RT COPD,ASTHMA [id number] 05/21/2017 12:28:00 05/21/2017 23:59:59 CLS Outpatient LEWIS KENDALL MD [facility] RT PULMONARY FIBROSIS [id number] 03/25/2016 08:14:00 03/25/2016 23:59:59 CLS Outpatient LEWIS KENDALL MD [facility] RT MILD INTERMITTENT ASTHMA [id number] 09/04/2015 08:23:00 09/04/2015 23:59:59 CLS Outpatient YVES HERNANDEZ MD [facility] RT INTERSTATIONAL LUNG DISEASE [id number] 02/27/2015 09:49:00 02/27/2015 23:59:59 CLS Outpatient YVES HERNANDEZ MD [facility] RT COPD [id number] 07/04/2014 08:34:00 07/04/2014 23:59:59 CLS Outpatient YVES HERNANDEZ MD [facility] RT ILD [id number] 05/04/2014 09:40:00 05/04/2014 12:55:00 DIS Outpatient DASHA GUERRERO MD [facility] SDC CHRONIC COUGH; HOARSENESS [id number] 05/01/2014 15:54:00 05/01/2014 23:59:59 CLS Outpatient DASHA GUERRERO MD [facility] PREOP CHRONIC COUGH; HOARSENESS [id number] 01/11/2015 09:55:00 Document Registration [id number] 04/25/2012 09:06:00 Document Registration [id number] 04/22/2012 08:49:00 Document Registration [id number] 02/08/2012 08:32:00 Document Registration 0000 08/13/2017 14:48:23 08/13/2017 23:59:59 CLS Outpatient
--- OUTSIDE RECORDS SUMMARY | 2018-11-19 09:59 | XMS REPORT | CCD ---
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 Never smoker 02/02/[address]: 343515482 Never drinks alcohol 02/02/2012 Has the patient [...] Fill Instructions prednisone 5 mg tablet RxNorm: 666604 1 Tablet(s) PO daily No Stop Date Active pantoprazole 40 mg tablet,delayed release RxNorm: 432637 1 Tablet(s) PO daily 09/08/2018 No Stop Date Active losartan 100 mg tablet RxNorm: 101189 1 Tablet(s) PO daily 01/07/2019 Active carvedilol 25 mg tablet RxNorm: 387909 1 Tablet(s) PO BID 01/1301/07/2019 Active hydrochlorothiazide 25 mg tablet RxNorm: 633612 1 Tablet(s) PO daily 01/13/2018 01/07/2019 Active glimepiride 1 mg tablet RxNorm: 160377 1 Tablet(s) PO daily 01/07/2019 Active doxazosin 4 mg tablet RxNorm: 361205 1 Tablet(s) PO BID 201701/07/2019 Active amlodipine 10 mg tablet RxNorm: 372465 1 Tablet(s) PO daily 01/07/2019 Active potassium chloride ER 20 mEq tablet,extended release RxNorm: 487663 1 Tablet(s) PO BID 01/13/2018 01/07/2019 Active pantoprazole 40 mg tablet,delayed release RxNorm: 880117 1 Tablet(s) PO BID 01/13/2018 09/07/2018 Inactive azithromycin 250 mg tablet RxNorm: 718113 1 Tablet(s) PO daily 02/19/2017 02/23/2017 Inactive Take two the first day Zithromax Z-Yasir 250 mg tablet RxNorm: 499584 1 Tablet(s) PO UD 10/30/2016 02/18/2017 Inactive zpack cefdinir 300 mg capsule RxNorm: 938455 1 Capsule(s) PO BID 03/201711/05/2016 Inactive potassium chloride ER 10 mEq capsule,extended release RxNorm: 434478 2 Capsule(s) PO QHS 09/23/2016 09/17/2017 Inactive losartan 100 mg tablet RxNorm: 047017 1 Tablet(s) PO daily 05/201609/24/2017 Inactive Kenalog 40 mg/mL suspension for injection RxNorm: 7902287 1 Milliliter(s) Inj 03/26/2016 03/26/2016 Inactive doxazosin 4 mg tablet RxNorm: 350947 1 Tablet(s) PO BID 201504/03/2017 Inactive glimepiride 1 mg tablet RxNorm: 093494 1 Tablet(s) PO daily 04/03/2017 Inactive pantoprazole 40 mg tablet,delayed release RxNorm: 621288 1 Tablet(s) PO daily 01/10/2016 04/03/2017 Inactive amlodipine 10 mg tablet RxNorm: 412244 1 Tablet(s) PO daily or BID based on bp 01/10/2016 04/03/2017 Inactive hydrochlorothiazide 25 mg tablet RxNorm: 761968 1 Tablet(s) PO daily 01/10/2016 04/03/2017 Inactive carvedilol 25 mg tablet RxNorm: 605269 1 Tablet(s) PO BID 01/0904/03/2017 Inactive carvedilol 25 mg tablet RxNorm: 964712 1 Tablet(s) PO BID 12/2301/09/2016 Inactive doxazosin 4 mg tablet RxNorm: 737987 1 Tablet(s) PO BID 201501/09/2016 Inactive amlodipine 10 mg tablet RxNorm: 607238 1 Tablet(s) PO daily or BID based on bp 12/24/2015 01/09/2016 Inactive glimepiride 1 mg tablet RxNorm: 929021 1 Tablet(s) PO daily 01/09/2016 Inactive Myrbetriq 25 mg tablet,extended release RxNorm: 8892714 1 Tablet(s) PO daily 11/22/2015 07/01/2016 Inactive Breeze 2 Test Strips RxNorm: MISCELLANEOUS TEST ONCE DAILY No Stop Date Active Kenalog 40 mg/mL suspension for injection RxNorm: 1312118 Milliliter(s) Inj 05/13/2015 05/13/2015 Inactive prednisone 20 mg tablet RxNorm: 927724 2 Tablet(s) PO daily 05/15/2015 Inactive Lactobacillus acidophilus 1 billion cell tablet RxNorm: 914249 1 Tablet(s) PO BID 05/13/2015 06/11/2015 Inactive carvedilol 25 mg tablet RxNorm: 067814 1 Tablet(s) PO BID 02/2809/25/2015 Inactive Cymbalta 60 mg capsule,delayed release RxNorm: 887988 1 Capsule(s) PO daily 01/02/2015 05/12/2015 Inactive metformin 1,000 mg tablet RxNorm: 648637 1 Tablet(s) PO BID 08/201505/12/2015 Inactive doxazosin 4 mg tablet RxNorm: 831449 1 Tablet(s) PO BID 201404/01/2015 Inactive amlodipine 10 mg tablet RxNorm: 936001 1 Tablet(s) PO daily 08/201512/23/2015 Inactive Breeze 2 Test Strips RxNorm: Miscellaneous test once daily 06/19/2015 Inactive carvedilol 25 mg tablet RxNorm: 743420 1 Tablet(s) PO BID 06/0412/30/2014 Inactive Fish Oil 1,000 mg capsule RxNorm: 3 Capsule(s) PO daily 201312/23/2015 Inactive potassium chloride ER 10 mEq capsule,extended release RxNorm: 772663 1 Capsule(s) PO QHS 04/12/2014 04/06/2015 Inactive hydrochlorothiazide 25 mg tablet RxNorm: 959482 1 Tablet(s) PO daily 04/12/2014 07/05/2015 Inactive carvedilol 12.5 mg tablet RxNorm: 667972 1.5 Tablet(s) PO BID 03/13/2014 2014 Inactive Carafate 100 mg/mL oral suspension RxNorm: 246406 10 Milliliter(s) PO QID 03/13/2014 05/12/2015 Inactive disepnse qs x 30 days pantoprazole 40 mg tablet,delayed release RxNorm: 124369 1 Tablet(s) PO daily 03/13/2014 03/07/2015 Inactive Diovan 160 mg tablet RxNorm: 584294 1 Tablet(s) PO 03/13/2014 05/12/2015 Inactive carvedilol 12.5 mg tablet RxNorm: 865551 1 Tablet(s) PO BID 03/12/2014 Inactive Diovan 320 mg tablet RxNorm: 802223 1 Tablet(s) PO daily 201303/12/2014 Inactive Influenza Virus Vaccine 0.5 mL RxNorm: IM 07/18/2013 07/18/2013 Inactive Breeze 2 Test Strips RxNorm: Miscellaneous test once daily 03/201306/05/2014 Inactive minocycline 50 mg tablet RxNorm: 403179 1 Tablet(s) PO BID PRN use prn for rosacea flair 03/29/2013 02/07/2014 Inactive tetracycline 250 mg capsule RxNorm: 955848 1 Capsule(s) PO BID PRN 03/29/2013 03/29/2013 Inactive Flagyl 500 mg tablet RxNorm: 452081 1 Tablet(s) PO BID 201212/21/2012 Inactive Cymbalta 60 mg capsule,delayed release RxNorm: 810091 1 Capsule(s) PO daily 11/08/2012 11/02/2013 Inactive Cymbalta 60 mg capsule,delayed release RxNorm: 016279 1 Capsule(s) PO daily 06/15/2012 11/07/2012 Inactive fluconazole 150 mg tablet RxNorm: 567234 1 Tablet(s) PO daily 05/31/2012 06/04/2012 Inactive potassium chloride ER 10 mEq capsule,extended release RxNorm: 563159 1 Capsule(s) PO QHS 05/31/2012 05/25/2013 Inactive Vitamin D3 2,000 unit tablet RxNorm: 703181 5 Tablet(s) PO daily 05/31/2012 02/07/2014 Inactive Bystolic 5 mg Tab RxNorm: 991966 1 Tablet(s) PO daily 201101/04/2014 Inactive Diovan 320 mg tablet RxNorm: 954652 1 Tablet(s) PO daily 201102/23/2013 Inactive omeprazole 20 mg Cap, delayed release RxNorm: 897045 1 Capsule(s) PO daily 03/01/2012 02/23/2013 Inactive Lipitor 10 mg Tab RxNorm: 006453 1 Tablet(s) PO daily 201102/18/2012 Inactive Lipitor 10 mg Tab RxNorm: 026331 1 Tablet(s) PO daily 201102/08/2012 Inactive azathioprine 50 mg tablet RxNorm: 936281 2 Tablet(s) PO QAM and 1 Tablet PO QPM No Start Date Active carboxymethylcellulose sodium 0.5 % Eye Drops RxNorm: 5833751 2 Drop(s) OPH TID No Start Date Active fenofibrate 160 mg tablet RxNorm: 612565 1 Tablet(s) PO daily No Start Date Active Aldara 5 % topical cream packet RxNorm: 243928 1 Application TOP 5x per week for skin cancer No Start Date Active Bystolic 5 mg tablet RxNorm: 094588 1 Tablet(s) PO daily No Start Date 02/07/2014 Inactive metformin 1,000 mg Tab RxNorm: 228700 1 Tablet(s) PO BID No Start Date 01/01/2015 Inactive Prilosec 20 mg capsule,delayed release RxNorm: 247648 1 Capsule(s) PO daily No Start Date 03/12/2014 Inactive GenTeal PM 85 %-15 % Eye Ointment RxNorm: 588509 .25 inch OPH QHS No Start Date 12/23/2015 Inactive Breeze 2 Test Strips RxNorm: Miscellaneous test once daily No Start Date 05/29/2013 Inactive Prevalite 4 gram Oral Packet RxNorm: 551384 1 packet PO daily No Start Date 05/30/2012 Inactive Vitamin D3 2,000 unit tablet RxNorm: 974116 5 Tablet(s) PO daily No Start Date 05/30/2012 Inactive loperamide 2 mg Cap RxNorm: 007373 1 Capsule(s) PO BID PRN No Start Date 02/07/2014 Inactive amlodipine 10 mg tablet RxNorm: 738260 1 Tablet(s) PO daily No Start Date 01/01/2015 Inactive Pravachol 40 mg Tab RxNorm: 121271 1/2 Tablet(s) PO daily No Start Date 02/07/2014 Inactive hydrochlorothiazide 25 mg Tab RxNorm: 209210 1 Tablet(s) PO daily No Start Date 04/11/2014 Inactive losartan 100 mg tablet RxNorm: 560609 1 Tablet(s) PO daily No Start Date 07/01/2016 Inactive Bystolic 5 mg Tab RxNorm: 303924 1 Tablet(s) PO daily No Start Date 02/29/2012 Inactive prednisone 2.5 mg tablet RxNorm: 639727 1 Tablet(s) PO daily No Start Date 09/07/2018 Inactive Diovan 320 mg Tab RxNorm: 091759 1 Tablet(s) PO daily No Start Date 02/29/2012 Inactive Vitamin D3 2,000 unit Cap RxNorm: 473798 1 Capsule(s) PO BID No Start Date 05/30/2012 Inactive doxazosin 4 mg Tab RxNorm: 538620 1 Tablet(s) PO BID No Start Date 01/01/2015 Inactive Vitamin D3 5,000 unit tablet RxNorm: 826259 2 Tablet(s) PO daily No Start Date 12/23/2015 Inactive omeprazole 20 mg Cap, delayed release RxNorm: 788172 1 Capsule(s) PO daily No Start Date 02/29/2012 Inactive leflunomide 20 mg tablet RxNorm: 995574 1 Tablet(s) PO daily No Start Date 09/07/2018 Inactive carvedilol 25 mg Tab RxNorm: 815390 1 Tablet(s) PO BID No Start Date 01/03/2014 Inactive Cymbalta 60 mg capsule,delayed release RxNorm: 320032 1 Capsule(s) PO daily No Start Date 06/14/2012 Inactive Spiriva with HandiHaler 18 mcg & inhalation capsules RxNorm: 023273 1 Capsule(s) INH daily No Start Date 12/23/2015 Inactive Medication Administered Medication Codes Instructions Start Date Status Kenalog 40 mg/mL suspension for injection RxNorm: 2424093 1Milliliter 03/26/2016 No longer Active Kenalog 40 mg/mL suspension for injection RxNorm: 1759888 Milliliter 05/13/2015 No longer Active Influenza Virus [...] Code Item Item Code Result Date %Hba1C Dgb530 % HbA1c 64444-3 6.4 % 01/13/2018 %Hba1C Uui731 Gluc Ave 137 mg/dL 01/13/2018 %Hba1C Yvh680 % HbA1c 02151-9 5.9 % 10/30/2016 %Hba1C Gzh087 Gluc Ave 123 mg/dL 10/30/2016 Cbc With Differential Ord2 WBC 9.09 K/ul 10/30/2016 Cbc With Differential Ord2 RBC 4.88 M/ul 10/30/2016 Cbc With Differential Ord2 HGB 14.4 g/dl 10/30/2016 Cbc With Differential Ord2 HCT 42.5 % 10/30/2016 Cbc With Differential Ord2 Neut% 70.9 % 10/30/2016 Cbc With Differential Ord2 Lymph% 18.4 % 10/30/2016 Cbc With Differential Ord2 MCV 87.1 fl 10/30/2016 Cbc With Differential Ord2 MCH 29.5 pg 10/30/2016 Cbc With Differential Ord2 Warrick% 6.8 % 10/30/2016 Cbc With Differential Ord2 MCHC 33.9 pg 10/30/2016 Cbc With Differential Ord2 Eos% 3.5 % 10/30/2016 Cbc With Differential Ord2 Baso% 0.4 % 10/30/2016 Cbc With Differential Ord2 PLT 251 K/ul 10/30/2016 Cbc With Differential Ord2 RDW 14.3 % 10/30/2016 Cbc With Differential Ord2 Neut ABS# 6.44 K/ul 10/30/2016 Cbc With Differential Ord2 Lymph ABS# 1.67 K/ul 10/30/2016 Cbc With Differential Ord2 [place] ABS# 0.6 K/ul 10/30/2016 Cbc With Differential Ord2 Eos ABS# 0.3 K/ul 10/30/2016 Cbc With Differential Ord2 Baso ABS# 0.0 K/ul 10/30/2016 Comp Metabolic Ttv057 NA 140 mEq/L 10/30/2016 Comp Metabolic Ioy325 K 3.8 mEq/L 10/30/2016 Comp Metabolic Snc669 CL 101 mEq/L 10/30/2016 Comp Metabolic Usp322 CO2 32.0 mEq/L 10/30/2016 Comp Metabolic Mon782 ANION GAP 11 10/30/2016 Comp Metabolic Ear895 GLUCOSE 160 mg/dL 10/30/2016 Comp Metabolic Dje326 Creat 0.7 mg/dL 10/30/2016 Comp Metabolic Dmp784 eGFR 94 ml/min/1.73m2 10/30/2016 Comp Metabolic Agn921 BUN 22 mg/dL 10/30/2016 Comp Metabolic Scn499 B/C Ratio 33.8 Ratio 10/30/2016 Comp Metabolic Wjb741 CALCIUM 9.7 mg/dL 10/30/2016 Comp Metabolic Bgn813 ALK PHOS 58 U/L 10/30/2016 Comp Metabolic Pxh848 AST(SGOT) 18 U/L 10/30/2016 Comp Metabolic Mex023 ALT(SGPT) 21 U/L 10/30/2016 Comp Metabolic Bab636 BILI T 0.4 mg/dL 10/30/2016 Comp Metabolic Gyt029 ALBUMIN 4.1 g/dL 10/30/2016 Comp Metabolic Qdr451 TPRO 7.0 g/dL 10/30/2016 Comp Metabolic Ttn798 GLOB 2.9 g/dL 10/30/2016 Comp Metabolic Bcd388 A/G Ratio 1.4 Ratio 10/30/2016 Comp Metabolic Moq681 Osmo 286 mOsmo 10/30/2016 Review of Systems [...] Formatting Model/CDA Sections, Assigned to/Promise Cullen CPT-4: 17131Ixppabs 08/11/2018 PPPS, SUBSEQ VISIT CPT -4: G0439 09/29/2017 ADMIN P[address]UMOCOCCAL VACCINE SNOMED CT: 74265850 CPT-4: G0009 09/09/2017 PNEUMOCOCCAL VACC [address]: 69918657 CPT-4: 21444 09/09/2017 ADMIN INFLUENZA VIRUS VAC CPT-4: G0008 08/13/2017 FLU VACC PRSV FREE INC ANTIG CPT-4: 05697 08/13/2017 PPPS, SUBSEQ VISIT CPT -4: G0439 09/23/2016 ADMIN INFLUENZA VIRUS VAC CPT-4: G0008 07/02/2016 FLU VACC PRSV FREE INC ANTIG Formatting Model/CDA Sections, Assigned to/Promise Cullen CPT-4: 82825Glulvch 07/02/2016 TRIAMCINOLONE ACET INJ NOS CPT-4: J3301 03/26/2016 TRIAMCINOLONE ACET INJ NOS CPT-4: J3301 05/13/2015 ADMIN INFLUENZA VIRUS VAC CPT-4: G0008 07/18/2013 FLULAVAL VACC, 3 YRS & >, IM CPT-4: Q2036 07/18/2013 PRESCRIP TRANSMIT VIA ERX SY CPT-4: G8553 03/29/2013 BIOPSY SKIN LESION CPT -4: 66749 11/28/2012 ADMIN INFLUENZA VIRUS VAC CPT-4: G0008 08/15/2012 FLULAVAL VACC, 3 YRS & >, IM CPT-4: Q2036 08/15/2012 PRESCRIP TRANSMIT VIA ERX SY CPT-4: G8553 05/31/2012 Vital Signs Date Vital 09/08/2018 Blood Pressure 1: 154/70 Code : 8480-6 BMI: 27.5 Code : 66608-9 Heart Rate 1 : 70 bpm Height: 5'6" SpO2: 97% Weight: 168 lbs 01/13/2018 Blood Pressure 1: 132/64 Code : 8480-6 BMI: 27.0 Code : 97750-4 Heart Rate 1 : 73 bpm Height: 5'6" SpO2: 98% Weight: 165 lbs 12/01/2017 Blood Pressure 1: 142/78 Code : 8480-6 BMI: 26.5 Code : 52053-2 Heart Rate 1 : 88 bpm Height: 5'6" SpO2: 97% Weight: 162 lbs 09/29/2017 Blood Pressure 1: 140/64 Code : 8480-6 BMI: 26.9 Code : 83018-5 Heart Rate 1 : 76 bpm Height: 5'6" SpO2: 97% Waist Measure (cm): 81 cm Weight: 164 lbs 02/19/2017 Blood Pressure 1: 144/68 Code : 8480-6 BMI: 26.5 Code : 74627-0 Heart Rate 1 : 76 bpm Height: 5'6" SpO2: 93% Weight: 161 lbs 8 oz 10/30/2016 Blood Pressure 1: 144/60 Code : 8480-6 BMI: 25.9 Code : 96554-1 Heart Rate 1 : 78 bpm Height: 5'6" SpO2: 95% Weight: 158 lbs 09/23/2016 Blood Pressure 1: 134/76 Code : 8480-6 BMI: 25.7 Code : 41066-4 Heart Rate 1 : 76 bpm Height: 5'6" SpO2: 97% Weight: 157 lbs 07/02/2016 Blood Pressure 1: 136/80 Code : 8480-6 BMI: 26.4 Code : 59394-9 Heart Rate 1 : 76 bpm Height: 5'6" SpO2: 94% Weight: 161 lbs 03/26/2016 Blood Pressure 1: 140/82 Code : 8480-6 BMI: 26.1 Code : 09231-4 Heart Rate 1 : 72 bpm Height: 5'6" SpO2: 90% Weight: 159 lbs 12/24/2015 Blood Pressure 1: 140/76 Code : 8480-6 BMI: 25.7 Code : 51085-6 Heart Rate 1 : 83 bpm Height: 5'6" SpO2: 93% Weight: 157 lbs 11/22/2015 Blood Pressure 1: 140/80 Code : 8480-6 BMI: 25.6 Code : 17272-1 Heart Rate 1 : 76 bpm Height: 5'6" SpO2: 91% Weight: 156 lbs 05/13/2015 Blood Pressure 1: 160/84 Code : 8480-6 Blood Pressure 2: 150/84 Code: 8480-6 Heart Rate 1: 77 bpm SpO2: 97% Weight: 151 lbs 04/12/2014 Blood Pressure 1: 142/70 Code : 8480-6 BMI: 26.9 Code : 86432-6 Heart Rate 1 : 92 bpm Height: 5'6" Weight: 164 lbs 03/13/2014 Blood Pressure 1: 134/68 Code : 8480-6 BMI: 25.7 Code : 14960-7 Heart Rate 1 : 87 bpm Height: 5'6" SpO2: 96% Weight: 157 lbs 02/08/2014 Blood Pressure 1: 158/78 Code : 8480-6 BMI: 26.2 Code : 66827-5 Heart Rate 1 : 100 bpm Height: 5'6" Weight: 160 lbs 10/10/2013 Blood Pressure 1: 128/68 Code : 8480-6 BMI: 27.4 Code : 72385-0 Heart Rate 1 : 80 bpm Height: 5'6" Weight: 167 lbs 03/29/2013 Blood Pressure 1: 136/72 Code : 8480-6 BMI: 27.5 Code : 82566-4 Heart Rate 1 : 80 bpm Height: 5'6" Weight: 168 lbs 11/28/2012 Blood Pressure 1: 132/80 Code : 8480-6 Heart Rate 1: 76 bpm Weight: 164 lbs 05/31/2012 Blood Pressure 1: 130/68 Code : 8480-6 Heart Rate 1: 76 bpm Weight: 161 lbs 03/01/2012 Blood Pressure 1: 142/68 Code : 8480-6 BMI: 26.2 Code : 57541-6 Heart Rate 1 : 64 bpm Height: 5'6" Respiratory Rate: 16 bpm Weight: 160 lbs 02/02/2012 Blood Pressure 1: 118/58 Code : 8480-6 BMI: 26.4 Code : 27502-6 Heart Rate 1 : 60 bpm Height: [...] one day so she could go to [place]. 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 PATIENT, LEVEL IV Diagnosis: Essential (primary) hypertension[ICD10: I10] Diagnosis: Type 2 diabetes mellitus without complications[ICD10: E11.9] Diagnosis: Idiopathic pulmonary fibrosis[ICD10: J84.112] Diagnosis: Vitamin D deficiency, unspecified[ICD10: E55.9] Chiquis Christine MD, [facility] CPT-4: 07007 09/08/2018 ([id number]) 52616 EST. PATIENT, LEVEL IV Diagnosis: Type 2 diabetes mellitus with hyperglycemia[ICD10: E11.65] Diagnosis: Essential (primary) hypertension[ICD10: I10] Diagnosis: Idiopathic pulmonary fibrosis[ICD10: J84.112] Chiquis Christine MD, [facility] CPT-4: 90830 01/13/2018 [id number] EST. PATIENT, LEVEL IV Diagnosis: Type 2 diabetes mellitus with hyperglycemia[ICD10: E11.65] Malika Christine MD, [facility] CPT-4: 29343 12/01/2017 ([id number]) 92925 EST. PATIENT, LEVEL III Diagnosis: Essential (primary) hypertension[ICD10: I10] Diagnosis: Cough[ICD10: R05] Diagnosis: Idiopathic pulmonary fibrosis[ICD10: J84.112] Chiquis Christine MD, [facility] CPT-4: 27715 02/19/2017 ([id number]) 35388 EST. PATIENT, LEVEL IV Diagnosis: Cough[ICD10: R05] Diagnosis: Pneumonia, unspecified organism[ICD10: J18.9] Diagnosis: Essential (primary) hypertension[ICD10: I10] Diagnosis: Type 2 diabetes mellitus without complications[ICD10: E11.9] Chiquis Christine MD, [facility] CPT-4: 43671 10/30/2016 ([id number]) 59891 EST. PATIENT, LEVEL IV Diagnosis: Essential (primary) hypertension[ICD10: I10] Diagnosis: Type 2 diabetes mellitus without complications[ICD10: E11.9] Diagnosis: Encounter for immunization[ICD10: Z23] Diagnosis: Idiopathic pulmonary fibrosis[ICD10: J84.112] Chiquis Christine MD, [facility] CPT-4: 62027 07/02/2016 ([id number]) 68713 EST. PATIENT, LEVEL IV Diagnosis: Essential (primary) hypertension[ICD10: I10] Diagnosis: Cough[ICD10: R05] Diagnosis: Type 2 diabetes mellitus without complications[ICD10: E11.9] Diagnosis: Idiopathic pulmonary fibrosis[ICD10: J84.112] Chiquis Christine MD, [facility] CPT-4: 42204 03/26/2016 ([id number]) 75682 EST. PATIENT, LEVEL IV Diagnosis: Essential (primary) hypertension[ICD10: I10] Diagnosis: Type 2 diabetes mellitus with hyperglycemia[ICD10: E11.65] Chiquis Christine MD, [facility] CPT-4: 19244 12/24/2015 ([id number]) 83718 EST. PATIENT, LEVEL IV Diagnosis: Type 2 diabetes mellitus with hyperglycemia[ICD10: E11.65] Diagnosis: Mixed incontinence[ICD10: N39.46] Diagnosis: Essential (primary) hypertension[ICD10: I10] Chiquis Christine MD, [facility] CPT-4: 26330 11/22/2015 ([id number]) 04187 EST. PATIENT, LEVEL IV Diagnosis: ESSENTIAL HYPERTENSION[ICD9: 401.9] Diagnosis: Diabetes[ICD9: 250.00] Diagnosis: COPD (chronic obstructive pulmonary disease)[ICD9: 496] Diagnosis: Diarrhea[ICD9: 787.91] Billie Christine MD, [facility] CPT-4: 17185 05/13/2015 ([id number]) 26238 EST. PATIENT, LEVEL IV Diagnosis: ESOPHAGEAL REFLUX[ICD9: 530.81] Diagnosis: Hiatal hernia[ICD9: 553.3] Diagnosis: COUGH[ICD9: 786.2] Diagnosis: ESSENTIAL HYPERTENSION[ICD9: 401.9] Billie Christine MD, [facility] CPT-4: 75026 04/12/2014 60746 EST. PATIENT, LEVEL IV Diagnosis: ESSENTIAL HYPERTENSION[SNOMED: 42611371] Diagnosis: Tachycardia[ICD9: 785.0] Diagnosis: Esophageal reflux[ICD9: 530.81] Diagnosis: Hoarseness of voice[ICD9: 784.42] Diagnosis: Hoarseness or changing voice[ICD9: 784.49] Billie Christine MD, [facility] CPT-4: 04973 03/13/2014 ([id number]) 25965 EST. PATIENT, LEVEL IV Diagnosis: ESSENTIAL HYPERTENSION[SNOMED: 00142716] Diagnosis: DIABETES TYPE II[SNOMED: 886671798] Billie Christine MD, [facility] CPT-4: 69864 02/08/2014 ([id number]) 13321 EST. PATIENT, LEVEL IV Diagnosis: ESSENTIAL HYPERTENSION[SNOMED: 40374641] Diagnosis: DIABETES TYPE II[SNOMED: 679796633] Diagnosis: HYPERLIPIDEMIA[ICD9: 272.4] Diagnosis: Mouth dryness[ICD9: 527.7] Billie Christine MD, [facility] CPT- 4: 27508 10/10/2013 ([id number]) 38095 EST. PATIENT, LEVEL III Diagnosis: ESSENTIAL HYPERTENSION[SNOMED: 81464319] Diagnosis: Rosacea[ICD9: 695.3] Billie Christine MD, [facility] CPT-4: 11731 03/29/2013 11217 EST. PATIENT, LEVEL II Diagnosis: SKIN DISORDER[ICD9: 709.9] Billie Christine MD, [facility] CPT- 4: 72800 11/28/2012 ([id number]) 93226 EST. PATIENT, LEVEL IV Diagnosis: Vaginal Discharge[ICD9: 623.5] Diagnosis: Skin lesion[ICD9: 709.9] Diagnosis: Encounter for routine pelvic examination[ICD9: V72.31] Diagnosis: ESSENTIAL HYPERTENSION[SNOMED: 14773123] Billie Christine MD, [facility] CPT-4: 67039 05/31/2012 ([id number]) 42683 EST. PATIENT, LEVEL IV Diagnosis: ESSENTIAL HYPERTENSION[SNOMED: 74425192] Diagnosis: DIABETES TYPE II[SNOMED: 061516767] Diagnosis: Facial swelling[ICD9: 784.2] [facility] CPT- 4: 18426 03/01/2012 OFFICE VISIT, NEW - LEVEL 4 Diagnosis: ESSENTIAL HYPERTENSION[SNOMED: 80066410] Diagnosis: DIABETES TYPE II[SNOMED: 700723216] Diagnosis: Fibromyalgia[ICD9: 729.1] Diagnosis: Diarrhea[ICD9: 787.91] [facility] CPT-4: 64279 02/02/2012 Plan of Care Planned Activity Notes [...] Vitamin d def-restart vitamin d daily 09/08/2018 Patient Education: Patient Medication Summary Completed 09/08/2018 Patient Education: Diabetes Completed 09/08/2018 Appointment: Injection 08/11/2018 Patient Education: Patient Medication Summary Completed 08/11/2018 Appointment: Chiquis Ordoñez WPtel: [phone] (15 min) Moderate 05/19/2018 Visit Plan: Hypertension [...] consider 01/13/2018 Appointment: Chiquis Ordo[facility]ez [phone] [facility] [phone] (30 min) Complex 01/13/2018 Patient Education: Patient [...] controlled. 12/01/2017 Appointment: Malika Allen [facility] [phone] [facility] [place] (30 min) Complex 12/01/2017 Patient Education: Patient [...] surrogate. 09/29/2017 Appointment: Chiquis Ordoñez [facility]Ptel[facility] [phone] [facility] [phone] [facility] - Annual Wellness Visit 09/29/2017 Patient [...] Completed 02/19/2017 Appointment: Chiquis Ordoñez WPtel: [phone] [phone] (15 min) Moderate 11/12/2016 Visit Plan: Pneumonia [...] less controlled. 10/30/2016 Appointment: Chiquis Ordoñez WPtel: [phone] [phone] (15 min) Moderate 10/30/2016 Patient Education: [...] surrogate. 09/23/2016 Appointment: Chiquis Ordoñez WPtel[facility] [phone] [facility] [phone] [facility] - Annual Wellness Visit 09/23/2016 Patient [...] less controlled. 07/02/2016 Appointment: Chiquis Ordoñez WPtel[facility] [phone] [facility] [phone] (15 min) Moderate 07/02/2016 Patient Education: Patient [...] Hypertension Completed 11/22/2015 Appointment: Bill[facility] [phone] [facility] (30 min) Complex 11/14/2015 Appointment: (30 [...] wants to wait until she sees the analysis specialist next month. 05/13/2015 Appointment: (15 min) Moderate 05/13/2015 Patient Education: Patient Medication Summary Completed 05/13/2015 Patient Education: Hypertension Completed 05/13/2015 Care Plan: COMPLETE CBC AUTOMATED LOINC : 46194-3 Ordered 05/13/2015 Visit Plan: Esophageal Reflux - [...] other medications. 04/12/2014 Appointment: Billie Christine WPtel: [address] [place], [place] [address] Follow up 04/12/2014 Patient Education: Patient Medication [...] follow up on this scope. 03/13/2014 Appointment: [place], Bill[facility]el[facility] [phone] [facility] Follow [facility] 03/13/2014 Patient Education: Patient [...] controlled. 02/08/2014 Appointment: [facility] [phone] [facility] Follow up 02/08/2014 Patient Education: Patient [...] to medications. 10/10/2013 Appointment: Billie Christine WPtel: [phone] [facility] Follow up 10/10/2013 Patient Education: Patient Medication Summary Completed 10/10/2013 Patient Education: Hypertension Completed 10/10/2013 Appointment: Billie Christine WPtel: [facility]5 [facility] Injection 07/18/2013 Patient Education: Patient Medication Summary [...] flair. 03/29/2013 Appointment: Billie Christine WPtel: [phone] [facility] Follow up 03/29/2013 Patient Education: Patient Medication Summary Completed 03/29/2013 Patient Education: Hypertension Completed 03/29/2013 Visit Plan: Wound Instructions - Pt was instruced to keep the wound clean, wash with antibacterial soap, use triple antibiotic ointment, call if redness, pustular drainage, or any other acute conerns. lesion biopsied from 3 oclock position of the right labia 11/28/2012 Appointment: Billie Christine WPtel: [phone] [facility] Established Patient Preventative visit 11/28/2012 Patient Education: Patient Medication Summary Completed 11/28/2012 Appointment: Tiago Chiquis WPtel: [phone] [phone] Injection 08/15/2012 Patient Education: Patient Medication Summary [...] at home. 05/31/2012 Appointment: Billie Christine WPtel: [phone] [facility] Well Woman 05/31/2012 Patient Education: Patient Medication [...] Cell Disease. 03/01/2012 Appointment: Billie Christine WPtel: [phone] [facility] Other 03/01/2012 Patient Education: Patient Medication Summary [...] Dr. Talavera 02/02/2012 Appointment: Chiquis Ordoñez WPtel: [address] [place], [place] [phone] [place] New Patient 02/02/2012 Patient Education: Patient [...] will schedule you for a mammogram at [facility]. February 07 at 8:30am Appointment with Dr [...] wants to wait until she sees the analysis specialist next month. . Hypertension - well controlled [...]
[2018-11-19] MEDS ORDERED: NS IV 1000 ML 1,500 ML IV ONE (10:00)
[2018-11-19] MEDS ORDERED: PIPERACILLIN SODIUM/TAZOBACTAM 4.5 GM in NS (IVPB) 100 ML IV ONE (10:00)
--- NOTE | 2018-11-19 10:07 | ED Respiratory ---
General Stated Complaint: SOB Source: patient, EMS Exam Limitations: no limitations History of Present Illness Date Seen by Provider: Nov 19, 2018 Time Seen by Provider: 09:40 Initial Comments The patient presents to ER by EMS from [place] from her home where she lives with her . EMS reportedly got there her daughter was there and her oxygen sats were 69% on room air. 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 She does not take routine breathing treatments. After being put on a DuoNeb at 8 L her oxygen sats came up to 98% per EMS. Her blood sugar was 230. She has not taken any of her medications this morning because she's been so short of air. She's been battling pneumonia outpatient for the past 6 months off and on and is presently on cefdinir. She sees Dr. Christine locally. She's not had much productive cough lately. She's had no known fevers. No nausea vomiting chest pain chills diarrhea. Allergies and Home Medications Allergies Coded Allergies: clonidine (Unverified Allergy, Unknown, 05/04/14) Home Medications Amlodipine Besylate 10 Mg Tablet, 10 MG PO 1900, (Reported) Carvedilol 12.5 Mg Tablet, 12.5 MG PO DAILY, (Reported) Carvedilol 12.5 Mg Tablet, 25 MG PO 1900, (Reported) TAKE 2 (12.5MG) Cholecalciferol 5,000 Unit Tablet, 5,000 UNIT PO BID, (Reported) Doxazosin Mesylate 4 Mg Tablet, 4 MG PO BID, (Reported) Duloxetine Hcl 60 Mg Capsule.dr, 60 MG PO DAILY, (Reported) Gentamicin Sulfate 3.5 Gm Oint..gm., 0.25 INCH OU HS, (Reported) Hydrochlorothiazide 25 Mg Tablet, 25 MG PO DAILY, (Reported) Loperamide Hcl 2 Mg Tablet, 2 MG PO DAILY PRN for DIARRHEA, (Reported) NEEDED FOR DIARRHEA Metformin Hcl 1,000 Mg Tablet, 1,000 MG PO BID WITH MEALS, (Reported) Elkin-3 Fatty Acids/Fish Oil 1 Each Capsule, 1,200 MG PO TID, (Reported) Pantoprazole Sodium 40 Mg Tablet.dr, 40 MG PO HS, (Reported) Polyvinyl Alcohol/Povidone 50 Ea Droperette, 1 DROP OU TID, (Reported) Potassium Chloride 10 Meq Capsule.sa, 10 MEQ PO HS, (Reported) Sucralfate 1 Gm/10 Ml Susp, 10 ML PO QID, (Reported) Valsartan 320 Mg Tablet, 160 MG PO DAILY, (Reported) TAKES 1/2 (320MG) TABLET Patient Home Medication List Home Medication List Reviewed: Yes Review of Systems Review of Systems Constitutional: No chills; malaise, weakness EENTM: No ear discharge, No ear pain Respiratory: cough, phlegm, short of breath, wheezing Cardiovascular: No chest pain, No palpitations Gastrointestinal: No abdominal pain, No constipation, No diarrhea, No nausea Genitourinary: No discharge, No dysuria Musculoskeletal: No back pain, No joint pain Past Kldmasf-Ybjjuq-Liwzdx Hx Patient Social History Alcohol Use: Denies Use Recreational Drug Use: No Smoking Status: Never a Smoker Recent Foreign Travel: No Contact w/Someone Who Travel: No Immunizations Up To Date Date of Influenza Vaccine: Jul 25, 2011 Physical Exam Vital Signs - First Documented 11/19/18 11/19/18 09:49 10:12 Temp 100.0 Pulse 91 Resp 18 B/P (MAP) 154/62 (92) Pulse Ox 99 O2 Delivery NIV Bilevel O2 Flow Rate 60.00 Capillary Refill : Height: 5'5.00" Weight: 162lbs. oz. 73.363444qc; BMI Method: General Appearance: WD/WN, mild distress Eyes: Bilateral Eye Normal Inspection, Bilateral Eye PERRL, Bilateral Eye EOMI HEENT: PERRL/EOMI, normal ENT inspection, TMs normal, pharynx normal ( oropharynx is dry) Neck: non-tender, full range of motion, supple, normal inspection Respiratory: chest non-tender, respiratory distress ([id number]-aj-pdgdrtug), decreased breath sounds, accessory muscle use (mild to moderate), crackles ( bilateral bases mild); No wheezing; expiration (prolonged) Cardiovascular: normal peripheral pulses, regular rate, rhythm, no edema, no murmur Gastrointestinal: normal bowel sounds, non tender, soft Extremities: normal range of motion, non-tender, normal inspection, normal capillary refill Neurologic/Psychiatric: alert, normal mood/affect, oriented x 3 Skin: normal color, warm/dry Focused Exam Sepsis Stage: Sepsis Possible Source: Pulmonary Lactate Level 11/19/18 10:30: Lactic Acid Level 2.73*H Time of Focused Exam: 12:00 Respiratory: Chest Non Tender, No Accessory Muscle Use, No Respiratory Distress , Crackles; No Wheezing Cardiovascular: Regular Rate, Rhythm, No Edema, Normal Peripheral Pulses Capillary Refill: Less Than 3 Seconds Peripheral Pulses: 2+ Dorsalis Pedis (R), 2+ Left Dors-Pedis (L) Skin: normal color, warm/dry Lactic Acid Level Laboratory Tests Test 11/19/18 10:30 Lactic Acid Level 2.73 MMOL/L (0.50-2.00) *H Within 3hrs of presentation: Admin fluids, Admin ABX, Blood cultures prior to ABX's, Focus exam, Lactate level Progress/Results/Core Measures Suspected Sepsis SIRS Temperature: Pulse: Respiratory Rate: Laboratory Tests 11/19/18 09:53: White Blood Count 3.0L Blood Pressure / Mean: 11/19/18 10:30: Lactic Acid Level 2.73*H Laboratory Tests 11/19/18 09:53: Creatinine 0.92, INR Comment 1.1, Platelet Count 188, Total Bilirubin 0.6 Results/Orders Lab Results Laboratory Tests Test 11/19/18 09:53 11/19/18 10:05 11/19/18 10:30 11/19/18 11:09 Range/Units White Blood Count 3.0 L 4.3-11.0 10^3/uL Red Blood Count 3.66 L 4.35-5.85 10^6/uL Hemoglobin 13.1 11.5-16.0 G/DL Hematocrit 37 35-52 % Mean Corpuscular Volume 102 H 80-99 FL Mean Corpuscular Hemoglobin 36 H 25-34 PG Mean Corpuscular Hemoglobin Concent 35 32-36 G/DL Red Cell Distribution Width 15.3 H 10.0-14.5 % Platelet Count 188 130-400 10^3/uL Mean Platelet Volume 11.2 H 7.4-10.4 FL Neutrophils (%) (Auto) 24 L 42-75 % Lymphocytes (%) (Auto) 49 H 12-44 % Monocytes (%) (Auto) 20 H 0-12 % Eosinophils (%) (Auto) 5 0-10 % Basophils (%) (Auto) 2 0-10 % Neutrophils # (Auto) 0.7 L 1.8-7.8 X 10^3 Lymphocytes # (Auto) 1.5 1.0-4.0 X 10^3 Monocytes # (Auto) 0.6 0.0-1.0 X 10^3 Eosinophils # (Auto) 0.2 0.0-0.3 10^3/uL Basophils # (Auto) 0.1 0.0-0.1 10^3/uL Neutrophils % (Manual) 29 % Lymphocytes % (Manual) 47 % Monocytes % (Manual) 19 % Eosinophils % (Manual) 3 % Band Neutrophils 2 % Blood Morphology Comment NORMAL Prothrombin Time 14.4 12.2-14.7 SEC INR Comment 1.1 0.8-1.4 Activated Partial Thromboplast Time 29 24-35 SEC Sodium Level 137 135-145 MMOL/L Potassium Level 4.2 3.6-5.0 MMOL/L Chloride Level 103 98-107 MMOL/L Carbon Dioxide Level 22 21-32 MMOL/L Anion Gap 12 5-14 MMOL/L Blood Urea Nitrogen 19 H 7-18 MG/DL Creatinine 0.92 0.60-1.30 MG/DL Estimat Glomerular Filtration Rate 59 BUN/Creatinine Ratio 21 Glucose Level 204 H 70-105 MG/DL Calcium Level 8.9 8.5-10.1 MG/DL Corrected Calcium 9.3 8.5-10.1 MG/DL Total Bilirubin 0.6 0.1-1.0 MG/DL Aspartate Amino Transf (AST/SGOT) 23 5-34 U/L Alanine Aminotransferase (ALT/SGPT) 15 0-55 U/L Alkaline Phosphatase 52 40-136 U/L C-Reactive Protein High Sensitivity 7.91 H 0.00-0.50 MG/DL B-Type Natriuretic Peptide 112.1 H <100.0 PG/ML Total Protein 6.0 L 6.4-8.2 GM/DL Albumin 3.5 3.2-4.5 GM/DL Blood Gas Puncture Site RT RAD Blood Gas Patient Temperature 100.1 Arterial Blood pH 7.45 H 7.37-7.43 Arterial Blood Partial Pressure CO2 35 35-45 MMHG Arterial Blood Partial Pressure O2 143 H 79-93 MMHG Arterial Blood HCO3 24 23-27 MMOL/L Arterial Blood Total CO2 24.8 21.0-31.0 MMOL/L Arterial Blood Oxygen Saturation 99 94-100 % Arterial Blood Base Excess 0.3 -2.5-2.5 MMOL/L Roddy Test YES-POS Blood Gas Ventilator Setting NO Blood Gas Inspired Oxygen 60% BIPAP Lactic Acid Level 2.73 *H 0.50-2.00 MMOL/L Urine Color YELLOW Urine Clarity CLEAR Urine pH 6 5-9 Urine Specific [place] 1.020 1.016-1.022 Urine Protein 1+ H NEGATIVE Urine Glucose (UA) 3+ H NEGATIVE Urine Ketones NEGATIVE NEGATIVE Urine Nitrite NEGATIVE NEGATIVE Urine Bilirubin NEGATIVE NEGATIVE Urine Urobilinogen NORMAL NORMAL MG/DL Urine Leukocyte Esterase 1+ H NEGATIVE Urine RBC (Auto) NEGATIVE NEGATIVE Urine RBC RARE /HPF Urine WBC RARE /HPF Urine Squamous Epithelial Cells 25-50 H /HPF Urine Crystals NONE /LPF Urine Bacteria TRACE /HPF Urine Casts NONE /LPF Urine Mucus NEGATIVE /LPF Urine Culture Indicated NO Micro Results Microbiology 11/19/18 Influenza Types A,B Antigen (PARKER) - Final, Complete My Orders Orders - TANNER BAZAN Cbc With Automated Diff (11/19/18 09:59) Comprehensive Metabolic Panel (11/19/18 09:59) Blood Culture (11/19/18 09:59) Sputum Culture (11/19/18 09:59) Urinalysis (11/19/18 09:59) Urine Culture (11/19/18 09:59) Protime With Inr (11/19/18 09:59) Partial Thromboplastin Time (11/19/18 09:59) Chest 1 View, Ap/Pa Only (11/19/18 09:59) Saline Lock/Iv-Start (11/19/18 09:59) Saline Lock/Iv-Start (11/19/18 09:59) Vital Signs Adult Sepsis Patie Q15M (11/19/18 09:59) O2 (11/19/18 09:59) Remove Rings In Anticipation O (11/19/18 09:59) Lactic Acid Analyzer (11/19/18 09:59) Influenza A And B Antigens (11/19/18 09:59) Ns Iv 1000 Ml (Sodium Chloride 0.9%) (11/19/18 10:00) Piperacillin Sodium/Tazobactam (Zosyn Vi (11/19/18 10:00) Arterial Blood Gas (11/19/18 09:59) Manual Differential (11/19/18 09:53) Arterial Blood Draw (11/19/18 10:05) Ns Iv 500 Ml (Sodium Chloride 0.9%) (11/19/18 10:15) BNP (11/19/18 11:14) Hs C Reactive Protein (11/19/18 11:14) Medications Given in ED Current Medications Medications Dose Ordered Sig/Cassie Route Start Time Stop Time Status Last Admin Dose Admin Piperacillin Sod/ Tazobactam Sod 4.5 gm/Sodium Chloride 100 ml @ 200 mls/hr ONCE ONCE IV 11/19/18 10:00 11/19/18 10:29 DC 11/19/18 11:09 200 MLS/HR Sodium Chloride 1,500 ml @ 1,500 mls/hr ONCE ONCE IV 11/19/18 10:00 11/19/18 10:59 DC 11/19/18 10:24 1,500 MLS/HR Vital Signs/I&O 11/19/18 11/19/18 11/19/18 11/19/18 09:49 09:49 10:12 10:23 Temp 100.0 Pulse 91 92 Resp 18 33 B/P (MAP) 154/62 (92) Pulse Ox 99 99 95 O2 Delivery NIV Bilevel NIV/Bilevel O2 Flow Rate 60.00 40.00 Capillary Refill : Progress Note : Time: 10:05 Progress Note Put her on BiPAP and get an ABG. She was 85% on room air when she arrived. We do not hear any wheezes so we'll let the EMS DuoNeb ride for now. Due to the crackle so we'll obtain some chest x-rays labs blood cultures give her a 20 mL/ kg fluid bolus and selected Zosyn since she's been on outpatient antibiotic therapy with cephalosporins. Diagnostic Imaging Diagonstic Imaging: Xray Plain Films/CT/US/NM/MRI: chest Comments [facility]. [place], [place] NAME: ELIJAH RICHARDS [facility] REC#: [id number] PT STATUS: REG ER : 1940 PHYSICIAN: TANNER BAZAN MD ADMIT DATE: 11/19/18/ER Draft Date of Exam:11/19/18 CHEST 1 VIEW, AP/PA ONLY INDICATION: Shortness of breath COMPARISON: None. FINDINGS: Single view of the chest demonstrates cardiac enlargement with diffuse interstitial infiltrates. This may represent CHF. Pneumonia not excluded. Trace effusions are present. There is no pneumothorax. The osseous structures are normal. IMPRESSION: 1. Cardiac enlargement with diffuse interstitial infiltrates representing CHF versus pneumonia. Followup recommended. Dictated on workstation # [id number] Dict: 11/19/18 1108 Trans: 11/19/18 1110 [facility] [id number] Interpreted by: PATY HEREDIA Electronically signed by: Reviewed: Reviewed by Me Departure Communication (Admissions) Time/Spoke to Admitting Phy: 12:02 Discussed the case lab imaging findings with Dr. Christine she would like ICU care , Zosyn and consultation with pulmonology. Time/Spoke to Consulting Phy: 12:05 Discussed case lab imaging findings with Dr. Sorensen and he agrees with Keira and will consult on the patient. Impression Primary Impression: Pneumonia Qualified Codes: J18.9 - Pneumonia, unspecified organism Additional Impressions: Sepsis Qualified Codes: A41.9 - Sepsis, unspecified organism COPD with acute lower respiratory infection Acute on chronic respiratory failure with hypoxia Disposition: ADMITTED INPATIENT Condition: Stable Admissions Decision to Admit Reason: Admit from ER (General) Decision to Admit/Date: Nov 19, 2018 Time/Decision to Admit Time: 11:49 Departure-Patient Inst. Referrals: NAZ CHRISTINE MD (PCP/Family) Primary Care Physician TANNER BAZAN Nov 19, 2018 10:07
[2018-11-19 10:10] LABS: BASOPHILS # (AUTO) 0.1 10^3/uL (0.0-0.1); BASOPHILS % (AUTO) 2 % (0-10); EOSINOPHILS # (AUTO) 0.2 10^3/uL (0.0-0.3); EOSINOPHILS % (AUTO) 5 % (0-10); HEMATOCRIT 37 % (35-52); HEMOGLOBIN 13.1 G/DL (11.5-16.0); LYMPHOCYTES # (AUTO) 1.5 X 10^3 (1.0-4.0); LYMPHOCYTES % (AUTO) 49 % (12-44); MEAN CORPUSCULAR HEMOGLOBIN 36 PG (25-34); MEAN CORPUSCULAR HGB CONC 35 G/DL (32-36); MEAN CORPUSCULAR VOLUME 102 FL (80-99); MEAN PLATELET VOLUME 11.2 FL (7.4-10.4); MONOCYTES # (AUTO) 0.6 X 10^3 (0.0-1.0); MONOCYTES % (AUTO) 20 % (0-12); NEUTROPHILS # (AUTO) 0.7 X 10^3 (1.8-7.8); NEUTROPHILS % (AUTO) 24 % (42-75); PLATELET COUNT 188 10^3/uL (130-400); RED CELL DISTRIBUTION WIDTH 15.3 % (10.0-14.5)
[2018-11-19] MEDS ORDERED: NS IV 500 ML 500 ML ONE (10:15)
[2018-11-19 10:16] LABS: INR 1.1 (0.8-1.4); PROTHROMBIN TIME PATIENT 14.4 SEC (12.2-14.7)
[2018-11-19 10:17] LABS: ABG BASE EXCESS 0.3 MMOL/L (-2.5-2.5); ABG OXYGEN SATURATION 99 % (94-100); ABG PCO2 35 MMHG (35-45); ABG PH 7.45 (7.37-7.43); ABG PO2 143 MMHG (79-93); ABG TCO2 24.8 MMOL/L (21.0-31.0)
[2018-11-19 10:20] LABS: ALLENS TEST YES-POS; INSPIRED O2 60% BIPAP; PATIENT TEMP 100.1; VENTILATOR NO
[2018-11-19 10:23] LABS: ALBUMIN 3.5 GM/DL (3.2-4.5); BILIRUBIN,TOTAL 0.6 MG/DL (0.1-1.0); CALCIUM 8.9 MG/DL (8.5-10.1); CREATININE SERUM 0.92 MG/DL (0.60-1.30); POTASSIUM 4.2 MMOL/L (3.6-5.0)
--- NOTE | 2018-11-19 10:27 | NUR ---
LAB HERE TO DRAW 2ND BLOOD CULTLURE.
[2018-11-19 10:38] LABS: BAND NEUTROPHILS 2 %; EOSINOPHILS % (MANUAL) 3 %; LYMPHOCYTES % (MANUAL) 47 %; MONOCYTES % (MANUAL) 19 %; NEUTROPHILS % (MANUAL) 29 %
[2018-11-19 10:39] LABS: RBC MORPH NORMAL
--- NOTE | 2018-11-19 11:10 | Diagnostic Imaging Report ---
INDICATION: Shortness of breath COMPARISON: None. FINDINGS: Single view of the chest demonstrates cardiac enlargement with diffuse interstitial infiltrates. This may represent CHF. Pneumonia not excluded. Trace effusions are present. There is no pneumothorax. The osseous structures are normal. IMPRESSION: 1. Cardiac enlargement with diffuse interstitial infiltrates representing CHF versus pneumonia. Followup recommended. Dictated by: Dictated on workstation # [id number]
[2018-11-19 11:12] LABS: BILIRUBIN,URINE NEGATIVE (NEGATIVE); CLARITY,URINE CLEAR; COLOR,URINE YELLOW; GLUCOSE, URINE (UA) 3+ (NEGATIVE); KETONES,URINE NEGATIVE (NEGATIVE); LEUKOCYTE ESTERASE ,URINE 1+ (NEGATIVE); NITRITE,URINE NEGATIVE (NEGATIVE); PH,URINE 6 (5-9); PROTEIN,URINE 1+ (NEGATIVE); UROBILINOGEN,URINE NORMAL (NORMAL)
[2018-11-19 11:43] LABS: BACTERIA,URINE TRACE /HPF; RBC,URINE RARE /HPF; WBC,URINE RARE /HPF
[2018-11-19 11:44] LABS: SQUAMOUS EPITHELIAL CELL,UR 25-50 /HPF
--- NOTE | 2018-11-19 12:02 | NUR ---
RT CALLED TO TAKE PATIENT OFF BI NATALIE AND TRY O2 PER NC.
--- NOTE | 2018-11-19 12:05 | NUR ---
RT HERE TO CHANGE 02 TO 3 L NC
--- NOTE | 2018-11-19 12:11 | NUR ---
PLACED ON BI NATALIE SAO2 AT 89%-90 ON NC
--- OUTSIDE RECORDS SUMMARY | 2018-11-19 12:28 | XMS REPORT | Continuity of Care Document ---
Author Author [facility] Organization [facility] Address Unknown Phone Unavailable Allergies Active Description Code Type Severity Reaction Onset Reported/Identified Relationship to Patient Clinical Status Yes clonidine [id number] Drug Allergy Unknown N/A 05/04/2014 Medications There [...] RESPIRATORY BRONCHIOLITIS INTERSTITIAL L 05/05/2018 LEWIS KENDALL MD, Ot J44.9 CHRONIC OBSTRUCTIVE PULMONARY DISEASE, U 05/05/2018 LEWIS KENDALL MD, Ot J45.909 UNSPECIFIED ASTHMA, UNCOMPLICATED 05/05/2018 LEWIS KENDALL MD, Ot J84.115 RESPIRATORY BRONCHIOLITIS INTERSTITIAL L 05/24/2018 LEWIS KENDALL MD, Ot J44.9 CHRONIC OBSTRUCTIVE PULMONARY DISEASE, U 05/24/2018 LEWIS KENDALL MD, Ot J45.909 UNSPECIFIED ASTHMA, UNCOMPLICATED 05/24/2018 LEWIS KENDALL MD, Ot 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 Results Test Result Range Complete blood count (CBC) with automated white blood cell (WBC) differential - 11/19/18 09:53 Blood leukocytes automated count (number/volume) 3.0 10*3/uL 4.3-11.0 Blood erythrocytes automated count (number/volume) 3.66 10*6/uL 4.35-5.85 Venous blood hemoglobin measurement (mass/volume) 13.1 g/dL 11.5-16.0 Blood hematocrit (volume fraction) 37 % 35-52 Automated erythrocyte mean corpuscular volume 102 [foz_us] 80-99 Automated erythrocyte mean corpuscular hemoglobin (mass per erythrocyte) 36 pg 25-34 Automated erythrocyte mean corpuscular hemoglobin concentration measurement ( mass/volume) 35 g/dL 32-36 Automated erythrocyte distribution width ratio 15.3 % 10.0-14.5 Automated blood platelet count (count/volume) 188 10*3/uL 130-400 Automated blood platelet mean volume measurement 11.2 [foz_us] 7.4-10.4 Automated blood neutrophils/100 leukocytes 24 % 42-75 Automated blood lymphocytes/100 leukocytes 49 % 12-44 Blood monocytes/100 leukocytes 20 % 0-12 Automated blood eosinophils/100 leukocytes 5 % 0-10 Automated blood basophils/100 leukocytes 2 % 0-10 Blood neutrophils automated count (number/volume) 0.7 10*3 1.8-7.8 Blood lymphocytes automated count (number/volume) 1.5 10*3 1.0-4.0 Blood monocytes automated count (number/volume) 0.6 10*3 0.0-1.0 Automated eosinophil count 0.2 10*3/uL 0.0-0.3 Automated blood basophil count (count/volume) 0.1 10*3/uL 0.0-0.1 PT panel in platelet poor plasma by coagulation assay - 11/19/18 09:53 Prothrombin time (PT) in platelet poor plasma by coagulation assay 14.4 s 12.2-14.7 INR in platelet poor plasma or blood by coagulation assay 1.1 0.8-1.4 Activated partial thromboplastin time (aPTT) in platelet poor plasma bycoagulation assay - 11/19/18 09:53 Activated partial thromboplastin time (aPTT) in platelet poor plasma bycoagulation assay 29 s 24-35 Comprehensive metabolic panel - 11/19/18 09:53 Serum or plasma sodium measurement (moles/volume) 137 mmol/L 135-145 Serum or plasma potassium measurement (moles/volume) 4.2 mmol/L 3.6-5.0 Serum or plasma chloride measurement (moles/volume) 103 mmol/L 98-107 Carbon dioxide 22 mmol/L 21-32 Serum or plasma anion gap determination (moles/volume) 12 mmol/L 5-14 Serum or plasma urea nitrogen measurement (mass/volume) 19 mg/dL 7-18 Serum or plasma creatinine measurement (mass/volume) 0.92 mg/dL 0.60-1.30 Serum or plasma urea nitrogen/creatinine mass ratio 21 NRG Serum or plasma creatinine measurement with calculation of estimated glomerular filtration rate 59 NRG Serum or plasma glucose measurement (mass/volume) 204 mg/dL 70-105 Serum or plasma calcium measurement (mass/volume) 8.9 mg/dL 8.5-10.1 Serum or plasma total bilirubin measurement (mass/volume) 0.6 mg/dL 0.1-1.0 Serum or plasma alkaline phosphatase measurement (enzymatic activity/volume) 52 U/L 40-136 Serum or plasma aspartate aminotransferase measurement (enzymatic activity/ volume) 23 U/L 5-34 Serum or plasma alanine aminotransferase measurement (enzymatic activity/volume ) 15 U/L 0-55 Serum or plasma protein measurement (mass/volume) 6.0 g/dL 6.4-8.2 Serum or plasma albumin measurement (mass/volume) 3.5 g/dL 3.2-4.5 CALCIUM CORRECTED 9.3 mg/dL 8.5-10.1 Influenza virus A and B antigen detection - 11/19/18 09:53 FLU RESULT NEGATIVE FOR INFLUENZA A AND B ANTIGENS BY IA NRG Blood manual differential performed detection - 11/19/18 09:53 Blood monocytes/100 leukocytes 19 % NRG Manual blood segmented neutrophils/100 leukocytes 29 % NRG Blood band neutrophils/100 leukocytes 2 % NRG Manual blood lymphocytes/100 leukocytes 47 % NRG Manual eosinophils/100 leukocytes in nose 3 % NRG Blood erythrocyte morphology finding identification NORMAL NRG Serum or plasma C reactive protein measurement (mass/volume) - 11/19/18 09:53 Serum or plasma C reactive protein measurement (mass/volume) 7.91 mg /dL 0.00-0.50 Serum or plasma lithium measurement (moles/volume) - 11/19/18 09:53 BNP level 112.1 pg/mL <100.0 Arterial blood gas measurement - 11/19/18 10:05 Blood pCO2 35 mm[Hg] 35-45 Blood pO2 143 mm[Hg] 79-93 Arterial blood bicarbonate measurement (moles/volume) 24 mmol/L 23-27 Arterial blood base excess by calculation 0.3 mmol/L -2.5 -2.5 Arterial blood oxygen saturation measurement 99 % 94-100 * Inhaled oxygen flow rate 60% BIPAP NRG Arterial blood pH measurement with patient temperature correction 7.45 7.37-7.43 Arterial blood carbon dioxide, total measurement (moles/volume) 24.8 mmol/L 21.0-31.0 Body site RT RAD NRG Assessment of wrist artery patency prior to arterial puncture YES- POS NRG Setting of ventilation mode NO NRG Measurement of body temperature 100.1 NRG Blood lactic acid measurement (moles/volume) - 11/19/18 10:30 Blood lactic acid measurement (moles/volume) 2.73 mmol/L 0.50-2.00 Complete urinalysis with reflex to culture - 11/19/18 11:09 Urine color determination YELLOW NRG Urine clarity determination CLEAR NRG Urine pH measurement by test strip 6 5-9 Specific gravity of urine by test strip 1.020 1.016- 1.022 Urine protein assay by test strip, semi-quantitative 1+ NEGATIVE Urine glucose detection by automated test strip 3+ NEGATIVE Erythrocytes detection in urine sediment by light microscopy NEGATIVE NEGATIVE Urine ketones detection by automated test strip NEGATIVE NEGATIVE Urine nitrite detection by test strip NEGATIVE NEGATIVE Urine total bilirubin detection by test strip NEGATIVE NEGATIVE Urine urobilinogen measurement by automated test strip (mass/volume) NORMAL NORMAL Urine leukocyte esterase detection by dipstick 1+ NEGATIVE Automated urine sediment erythrocyte count by microscopy (number/high power field) RARE NRG Automated urine sediment leukocyte count by microscopy (number/high power field ) RARE NRG Bacteria detection in urine sediment by light microscopy TRACE NRG Squamous epithelial cells detection in urine sediment by light microscopy 25-50 NRG Crystals detection in urine sediment by light microscopy NONE NRG Casts detection in urine sediment by light microscopy NONE NRG Mucus detection in urine sediment by light microscopy NEGATIVE NRG Complete urinalysis with reflex to culture NO NRG Encounters ACCT No. Visit Date/Time Discharge Status Pt. Type Provider Facility Loc./Unit Complaint [id number] 11/09/2018 10:00:00 11/09/2018 23:59:59 CLS Preadmit YVES HERNANDEZ MD [facility] RT J84.115 RESPIRATORY BRONCHIOLITIS [id number] 10/05/2018 08:41:00 10/05/2018 23:59:59 CLS Preadmit YVES HERNANDEZ MD [facility] RT MILD INTERMITENT ASTHMA [id number] 05/04/2018 09:27:00 05/04/2018 23:59:59 CLS Outpatient LEWIS KENDALL MD [facility] CARD SOB [id number] 04/08/2018 07:12:00 04/08/2018 23:59:59 CLS Preadmit LEWIS KENDALL MD [facility] RT COPD,ASTHMA [id number] 05/21/2017 12:28:00 05/21/2017 23:59:59 CLS Outpatient LEWIS KENDALL MD [facility] RT PULMONARY FIBROSIS [id number] 03/25/2016 08:14:00 03/25/2016 23:59:59 CLS Outpatient LEWIS KENDALL MD [facility] RT MILD INTERMITTENT ASTHMA [id number] 09/04/2015 08:23:00 09/04/2015 23:59:59 CLS Outpatient YVES HERNANDEZ MD [facility] RT INTERSTATIONAL LUNG DISEASE [id number] 02/27/2015 09:49:00 02/27/2015 23:59:59 CLS Outpatient YVES HERNANDEZ MD [facility] RT COPD [id number] 07/04/2014 08:34:00 07/04/2014 23:59:59 CLS Outpatient YVES HERNANDEZ MD [facility] RT ILD [id number] 05/04/2014 09:40:00 05/04/2014 12:55:00 DIS Outpatient DASHA GUERRERO MD [facility] SDC CHRONIC COUGH; [place]ARS[place] [id number] 05/01/2014 15:54:00 05/01/2014 23:59:59 CLS Outpatient DASHA GUERRERO MD [facility] PREOP CHRONIC COUGH; HOARSENESS [id number] 11/19/2018 10:12:00 Document Registration [id number] 01/11/2015 09:55:00 Document Registration [id number] 04/25/2012 09:06:00 Document Registration [id number] 04/22/2012 08:49:00 Document Registration [id number] 02/08/2012 08:32:00 Document Registration 0000 08/13/2017 14:48:23 08/13/2017 23:59:59 CLS Outpatient
--- NOTE | 2018-11-19 12:45 | NUR ---
PT ADMITTED TO ICU5 [facility]IA [facility] W/ STAFF AND FAMILY. PT PLACED ON MONITORS AND ORIENTED TO SURROUNDINGS. WILL CONT TO MONITOR.
[2018-11-19] MEDS: NS W/KCL 20 MEQ/L 1,000 ML IV SCH ×2 (13:38→23:13)
[2018-11-19] MEDS ORDERED: ONDANSETRON 4 MG/2 ML (SDV) Z0FRAN IVP PRN (13:45)
[2018-11-19] MEDS ORDERED: fentaNYL INJECTION 100 MCG/2 ML AMP IVP PRN (14:30)
[2018-11-19] MEDS ORDERED: DOCUSATE SODIUM 100 MG (COLACE) CAP PO PRN (14:30)
[2018-11-19] MEDS ORDERED: ALPRAZolam 0.25 MG (XANAX) TAB PO PRN (14:30)
[2018-11-19] MEDS ORDERED: HYDROcodone/APAP 5 MG/325 MG (LORTAB) TAB PO PRN (14:30)
[2018-11-19] MEDS ORDERED: MELATONIN 3 MG TABLET PO PRN (14:30)
[2018-11-19] MEDS ORDERED: guaiFENesin/CODEINE (ROBITUSSIN AC) 10ML UDC PO PRN (14:30)
[2018-11-19] MEDS ORDERED: diphenhydrAMINE 25 MG TAB (BENADRYL) PO PRN (14:30)
[2018-11-19] MEDS ORDERED: CALCIUM CARBONATE 500 MG (TUMS) TAB.CHEW PO PRN (14:30)
[2018-11-19] MEDS ORDERED: RT-ALBUTEROL/IPRATROPIUM 3 ML (DUONEB) VIAL INH PRN (16:00)
[2018-11-19] MEDS ORDERED: RT-ALBUTEROL/IPRATROPIUM 3 ML (DUONEB) VIAL INH SCH (16:00)
[2018-11-19] MEDS: PIPERACILLIN/TAZO 4.5 GM/NS 100 ML IV SCH ×2 (16:15)
[2018-11-19] MEDS: inSUlin ASPART (NovoLOG) 1 UNIT/0.01 ML (CHARGE PER UNIT) SQ SCH ×2 (16:18→22:15)
[2018-11-19] MEDS: RT-ALBUTEROL/IPRATROPIUM 3 ML (DUONEB) VIAL INH SCH ×2 (18:28→21:39)
[2018-11-20] VITALS (24 sets, daily range): BP systolic 94–139; BP diastolic 39–85
[2018-11-20] MEDS: PIPERACILLIN/TAZO 4.5 GM/NS 100 ML IV SCH ×6 (00:46→15:45)
[2018-11-20] MEDS: RT-ALBUTEROL/IPRATROPIUM 3 ML (DUONEB) VIAL INH SCH ×6 (01:22→21:10)
[2018-11-20] MEDS: ACETAMINOPHEN 500 MG TAB (TYLENOL) PO PRN ×2 (01:46→12:27)
[2018-11-20 03:39] LABS: BASOPHILS % (AUTO) 1 % (0-10); EOSINOPHILS # (AUTO) 0.1 10^3/uL (0.0-0.3); EOSINOPHILS % (AUTO) 3 % (0-10); HEMATOCRIT 32 % (35-52); LYMPHOCYTES # (AUTO) 1.4 X 10^3 (1.0-4.0); LYMPHOCYTES % (AUTO) 49 % (12-44); MEAN CORPUSCULAR HEMOGLOBIN 35 PG (25-34); MEAN CORPUSCULAR HGB CONC 35 G/DL (32-36); MEAN CORPUSCULAR VOLUME 102 FL (80-99); MEAN PLATELET VOLUME 10.4 FL (7.4-10.4); MONOCYTES # (AUTO) 0.5 X 10^3 (0.0-1.0); MONOCYTES % (AUTO) 18 % (0-12); NEUTROPHILS # (AUTO) 0.8 X 10^3 (1.8-7.8); NEUTROPHILS % (AUTO) 29 % (42-75); PLATELET COUNT 167 10^3/uL (130-400); RED CELL DISTRIBUTION WIDTH 14.7 % (10.0-14.5); WHITE BLOOD COUNT 2.9 10^3/uL (4.3-11.0)
[2018-11-20 04:01] LABS: BUN/CREATININE RATIO 19; CALCIUM 8.3 MG/DL (8.5-10.1); CARBON DIOXIDE 22 MMOL/L (21-32); CHLORIDE 106 MMOL/L (98-107); CREATININE SERUM 0.77 MG/DL (0.60-1.30); GFR ESTIMATED > 60; GLUCOSE 145 MG/DL (70-105); MAGNESIUM 1.6 MG/DL (1.8-2.4); PHOSPHORUS 2.4 MG/DL (2.3-4.7); POTASSIUM 3.5 MMOL/L (3.6-5.0); SODIUM 136 MMOL/L (135-145)
--- NOTE | 2018-11-20 05:10 | Pulmonary Consultation ---
History of Present Illness History of Present Illness Date of Consultation 11/20/18 05:05 Date of Admission Allergies and Home Medications Allergies Coded Allergies: clonidine (Unverified Allergy, Unknown, 05/04/14) Home Medications Amlodipine Besylate 10 Mg Tablet, 10 MG PO 1900, (Reported) Carvedilol 12.5 Mg Tablet, 12.5 MG PO DAILY, (Reported) Carvedilol 12.5 Mg Tablet, 25 MG PO 1900, (Reported) TAKE 2 (12.5MG) Cholecalciferol 5,000 Unit Tablet, 5,000 UNIT PO BID, (Reported) Doxazosin Mesylate 4 Mg Tablet, 4 MG PO BID, (Reported) Duloxetine Hcl 60 Mg Capsule.dr, 60 MG PO DAILY, (Reported) Gentamicin Sulfate 3.5 Gm Oint..gm., 0.25 INCH OU HS, (Reported) Hydrochlorothiazide 25 Mg Tablet, 25 MG PO DAILY, (Reported) Loperamide Hcl 2 Mg Tablet, 2 MG PO DAILY PRN for DIARRHEA, (Reported) NEEDED FOR DIARRHEA Metformin Hcl 1,000 Mg Tablet, 1,000 MG PO BID WITH MEALS, (Reported) Sutton-3 Fatty Acids/Fish Oil 1 Each Capsule, 1,200 MG PO TID, (Reported) Pantoprazole Sodium 40 Mg Tablet.dr, 40 MG PO HS, (Reported) Polyvinyl Alcohol/Povidone 50 Ea Droperette, 1 DROP OU TID, (Reported) Potassium Chloride 10 Meq Capsule.sa, 10 MEQ PO HS, (Reported) Sucralfate 1 Gm/10 Ml Susp, 10 ML PO QID, (Reported) Valsartan 320 Mg Tablet, 160 MG PO DAILY, (Reported) TAKES 1/2 (320MG) TABLET Past Xjzejud-Gbfxxu-Jemmoz Hx Patient Social History Alcohol Use: Denies Use Recreational Drug Use: No Smoking Status: Never a Smoker Recent Foreign Travel: No Contact w/Someone Who Travel: No Recent Infectious Disease Expo: No Recent Hopitalizations: No Immunizations Up To Date Date of Pneumonia Vaccine: Jun 26, 2011 Date of Influenza Vaccine: Jun 25, 2018 Seasonal Allergies Seasonal Allergies: No Past Medical History Surgeries: Yes (BILAT.CATARACT; STEAPEDECTOMY) Respiratory: Yes Pneumonia Currently Using CPAP: No Currently Using BIPAP: Yes Cardiac: Yes Neurological: No : No Genitourinary: No Gastrointestinal: Yes (ULCERATIVE COLITIS; CHRONIC DIARRHEA) Colitis, Gastroesophageal Reflux Musculoskeletal: Yes (FIBROMYALGIA) Rheumatoid Arthritis Endocrine: Yes Are Your Blood Sugars Over 250: Yes HEENT: No Cancer: Yes Skin Did You Recieve Any Treatments: No Psychosocial: No Integumentary: Yes (ROSCEA) Blood Disorders: No Family Medical History Diabetes mellitus 19 FATHER Sepsis Event Evaluation Height, Weight, BMI Height: 5'5.00" Weight: 170lbs. 0.0oz. 77.318034kv; 28.3 BMI Method:Stated Exam Exam Vital Signs Date Time Temp Pulse Resp B/P (MAP) Pulse Ox O2 Delivery O2 Flow Rate FiO2 11/20/18 05:00 96 19 113/41 (65) 96 Vapotherm 85.00 25.00 11/20/18 04:00 Vapotherm 25.00 85 11/20/18 04:00 73 24 99/47 (64) 96 Vapotherm 85.00 25.00 11/20/18 03:00 88 27 112/85 (94) 96 Vapotherm 85.00 25.00 11/20/18 02:02 101.3 11/20/18 02:00 95 24 126/46 (72) 97 Vapotherm 85.00 25.00 11/20/18 01:57 Vapotherm 85.00 25.00 11/20/18 01:30 101.2 11/20/18 01:25 Vapotherm 75.00 30.00 11/20/18 01:22 99 Vapotherm 25.00 85 11/20/18 01:00 104 11/20/18 01:00 88 18 124/48 (73) 99 Vapotherm 85.00 30.00 11/20/18 00:00 Vapotherm 30.00 85 11/20/18 00:00 87 23 122/52 (75) 98 Vapotherm 85.00 30.00 11/19/18 23:00 97 25 128/55 (79) 98 Vapotherm 85.00 30.00 11/19/18 22:00 87 23 121/47 (71) 99 Vapotherm 85.00 30.00 11/19/18 21:46 85.00 30.00 11/19/18 21:39 100 Vapotherm 30.00 100 11/19/18 21:00 87 21 110/74 (86) 100 Vapotherm 100.00 30.00 11/19/18 20:00 Vapotherm 30.00 100 11/19/18 20:00 85 28 131/54 (79) 94 Vapotherm 100.00 30.00 11/19/18 19:40 99.6 91 38 133/60 (84) 98 Vapotherm 100.00 30.00 11/19/18 19:00 80 22 125/52 (76) 100 NIV Bilevel 40.00 11/19/18 19:00 90 11/19/18 18:28 87 27 95 40.00 11/19/18 18:00 87 20 148/65 (92) 95 NIV Bilevel 40.00 11/19/18 17:00 83 30 142/60 (87) 97 NIV Bilevel 40.00 11/19/18 16:48 NIV Bilevel 40.00 11/19/18 16:30 90 25 146/56 (86) 96 NIV Bilevel 40.00 11/19/18 16:21 88 30 96 40.00 11/19/18 16:15 100.5 11/19/18 16:00 81 28 144/63 (90) 97 NIV Bilevel 40.00 11/19/18 15:30 80 29 139/53 (81) 95 NIV Bilevel 40.00 11/19/18 15:15 98 25 150/63 (92) 89 NIV Bilevel 40.00 11/19/18 15:00 85 22 63/51 (55) 98 NIV Bilevel 40.00 11/19/18 14:55 81 96 40 11/19/18 14:30 90 36 140/51 (80) 95 NIV Bilevel 40.00 11/19/18 14:15 81 23 133/55 (81) 97 NIV Bilevel 40.00 11/19/18 14:05 78 35 96 40.00 11/19/18 14:00 80 29 143/60 (87) 97 NIV Bilevel 40.00 11/19/18 13:57 81 11/19/18 13:45 92 31 NIV Bilevel 40.00 11/19/18 13:30 77 25 126/52 (76) 97 NIV Bilevel 40.00 11/19/18 13:15 82 24 129/54 (79) 96 NIV Bilevel 40.00 11/19/18 13:00 85 27 135/50 (78) 97 NIV Bilevel 40.00 11/19/18 12:45 NIV Bilevel 40 11/19/18 12:28 84 18 135/51 (79) 96 NIV Bilevel 11/19/18 10:23 95 40.00 11/19/18 10:12 92 33 99 60.00 11/19/18 09:49 100.0 91 18 154/62 (92) 99 NIV/Bilevel 11/19/18 09:49 NIV Bilevel I & O 11/20/18 07:00 Intake Total 2800 ml Balance 2800 ml Height & Weight Height: 5'5.00" Weight: 170lbs. 0.0oz. 77.156750vx; 28.3 BMI Method:Stated Respiratory: Chest Non Tender, No Accessory Muscle Use, No Respiratory Distress , Crackles; No Wheezing Cardiovascular: Regular Rate, Rhythm, No Edema, Normal Peripheral Pulses Capillary Refill: Less Than 3 Seconds Peripheral Pulses: 2+ Dorsalis Pedis (R), 2+ Left Dors-Pedis (L) Gastrointestinal: normal bowel sounds, non tender, soft Results Lab Laboratory Tests 11/19/18 09:53 11/20/18 03:10 Assessment/Plan Assessment/Plan Pneumonia with hypoxia and sepsis -Zosyn -Costello cultures ARDS -Lasix 40 x 1 hypokalemia -PANCHO Hernandes DO Nov 20, 2018 05:10
[2018-11-20] MEDS ORDERED: FUROSEMIDE 40 MG/4 ML INJ (LASIX) IVP ONE (05:30)
[2018-11-20] MEDS ORDERED: KCL 10 MEQ TAB (MICRO K) PO ONE (05:30)
[2018-11-20] MEDS ORDERED: POTASSIUM CL 10MEQ/50ML IVPB 50 ML IV SCH (06:00)
[2018-11-20] MEDS ORDERED: MAGNESIUM 1 GM/100 ML IVPB 100 ML IV SCH (06:00)
[2018-11-20] MEDS ORDERED: KCL 20 MEQ TAB (K-DUR) PO SCH ×2 (06:00→21:00)
[2018-11-20] MEDS: inSUlin ASPART (NovoLOG) 1 UNIT/0.01 ML (CHARGE PER UNIT) SQ SCH ×4 (06:13→21:08)
--- NOTE | 2018-11-20 06:36 | Diagnostic Imaging Report ---
INDICATION: Respiratory failure, pneumonia COMPARISON: 11/19/2018 FINDINGS: Single view of the chest demonstrates slightly worsening bilateral pulmonary infiltrates, right greater than left. There is no pneumothorax or large effusion. The heart remains prominent. Osseous structures stable. IMPRESSION: Slightly worsening bilateral pulmonary infiltrates Dictated by: Dictated on workstation # [id number]
[2018-11-20] MEDS: POTASSIUM CL 10MEQ/50ML IVPB 50 ML IV SCH ×4 (06:48→09:36)
[2018-11-20] MEDS ORDERED: predniSONE 5 MG TAB PO SCH (07:00)
[2018-11-20] MEDS ORDERED: KCL 10 MEQ TAB (MICRO K) PO NR (08:24)
[2018-11-20] MEDS: MAGNESIUM 1 GM/100 ML IVPB 100 ML IV SCH ×2 (08:38→09:36)
[2018-11-20] MEDS ORDERED: CEFD300C3 PO (10:04)
[2018-11-20] MEDS ORDERED: GLIM1TAB PO (10:05)
[2018-11-20] MEDS ORDERED: POTA-51 PO (10:05)
[2018-11-20] MEDS ORDERED: LOSA100T57 PO (10:06)
[2018-11-20] MEDS ORDERED: AZAT50TA PO (10:06)
[2018-11-20] MEDS ORDERED: FENO160T37 PO (10:07)
[2018-11-20] MEDS ORDERED: CARV25TA PO (10:08)
[2018-11-20] MEDS ORDERED: AMLO10TA7 PO (10:08)
[2018-11-20] MEDS ORDERED: PANT40TA3 PO (10:08)
[2018-11-20] MEDS ORDERED: PRED5TAB56 PO (10:09)
--- NOTE | 2018-11-20 10:11 | NUR ---
SPOKE TO PATIENT SHE HAD A LIST OF MEDICATIONS AND DOUBLE CHECKED AGAINST EXTERNAL MEDICATION HISTORY.
[2018-11-20] MEDS: NS W/KCL 20 MEQ/L 1,000 ML IV SCH (12:22)
--- NOTE | 2018-11-20 13:08 | History & Physical-Hospitalist ---
History of Present Illness HPI/Chief Complaint CC: Dyspnea HPI: This is an 78-year-old white female clinic patient of Dr. Christine who presents to the ER with shortness of breath was found to have bilateral pneumonia and hypoxia requiring BiPAP. Patient was placed in ICU with close monitoring and maintained on IV antibiotics and neb treatments. Chest x-ray today appeared to be worse patient maintain on Vapotherm but considering her advanced age and severity of her lung disease and appearance of ARDS on chest x- ray she is likely would benefit from intubation but patient and family are deciding likely not to intubate if needed considering the overall poor recovery that is expected. Her and son at the bedside. She denies any pain. Source: patient Date Seen 11/20/18 Time Seen by a Provider: 11:45 Attending Physician Kristina Christine Holly A MD Referring Physician Date of Admission Nov 19, 2018 at 12:10 Home Medications & Allergies Home Medications Reviewed patient Home Medication Reconciliation performed by pharmacy medication reconciliations architecture technician and/or nursing. Patients Allergies have been reviewed. Allergies Allergies Coded Allergies clonidine (Unverified Allergy, Unknown, 05/04/14) Past Psvbemf-Zbnqwj-Oabesw Hx Past Med/Social Hx: Reviewed Nursing Past Med/Soc Hx, Reviewed and Corrections made Patient Social History Marrital Status: Employed/Student: retired Alcohol Use: Denies Use Recreational Drug Use: No Smoking Status: Never a Smoker Physical Abuse Screen: No Sexual Abuse: No Recent Foreign Travel: No Contact w/other who traveled: No Recent Hopitalizations: No Recent Infectious Disease Expo: No Immunizations Up To Date Date of Pneumonia Vaccine: Jun 26, 2011 Date of Influenza Vaccine: Jun 25, 2018 Seasonal Allergies Seasonal Allergies: No Past Medical History Respiratory: Pneumonia Currently Using CPAP: No Currently Using BIPAP: Yes Cardiac: High Cholesterol, Hypertension Neurological: Neuropathy : No Gastrointestinal: Colitis, Gastroesophageal Reflux UC Musculoskeletal: Rheumatoid Arthritis Lupus Are Your Blood Sugars Over 250: Yes Cancer: Skin Did You Recieve Any Treatments: No History of Blood Disorders: No Family History Diabetes mellitus 19 FATHER Review of Systems Constitutional: see HPI, weakness EENTM: no symptoms reported Respiratory: cough, dyspnea on exertion, short of breath Cardiovascular: no symptoms reported Gastrointestinal: no symptoms reported Genitourinary: no symptoms reported Musculoskeletal: no symptoms reported Skin: no symptoms reported Psychiatric/Neurological: No Symptoms Reported All Other Systems Reviewed Negative Unless Noted: Yes Physical Exam Physical Exam Vital Signs Vital Signs - First Documented 11/19/18 11/19/18 11/19/18 09:49 10:12 12:45 Temp 100.0 Pulse 91 Resp 18 B/P (MAP) 154/62 (92) Pulse Ox 99 O2 Delivery NIV Bilevel O2 Flow Rate 60.00 FiO2 40 Capillary Refill : Less Than 3 Seconds Height, Weight, BMI Height: 5'5.00" Weight: 170lbs. 0.0oz. 77.061153ec; 28.3 BMI Method:Stated General Appearance: WD/WN, Anxious, Chronically ill, Moderate Distress Eyes: Bilateral Eye Normal Inspection, Bilateral Eye PERRL HEENT: PERRL/EOMI, Normal ENT Inspection, Pharynx Normal Neck: Full Range of Motion, Normal Inspection, Non Tender, Supple, Carotid Bruit Respiratory: Chest Non Tender, Accessory Muscle Use, Crackles, Decreased Breath Sounds, Respiratory Distress (mild), Wheezing Cardiovascular: Regular Rate, Rhythm, No Edema, No Gallop, No JVD, No Murmur, Normal Peripheral Pulses, Tachycardia Gastrointestinal: Normal Bowel Sounds, No Organomegaly, No Pulsatile Mass, Non Tender, Soft Back: Normal Inspection, No CVA Tenderness, No Vertebral Tenderness Extremity: Normal Capillary Refill, Normal Inspection, Normal Range of Motion, Non Tender, No Calf Tenderness, No Pedal Edema Neurologic/Psychiatric: Alert, Oriented x3, No Motor/Sensory Deficits, Normal Mood/Affect Skin: Normal Color, Warm/Dry Lymphatic: No Adenopathy Results Results/Procedures Labs Laboratory Tests 11/19/18 09:53 11/20/18 03:10 Patient resulted labs reviewed. Assessment/Plan Admission Diagnosis Assessment: Bilateral pneumonia Respiratory failure ARDS Immunosuppression Rheumatoid arthritis Lupus Ulcer of colitis Rosacea Hypertension Plan: Home meds Hold Imuran Intubation or no intubation monitor closely Poor prognosis Admission Status: Inpatient Order (span 2 midnights) Reason for Inpatient Admission: Sepsis with resp failure will require 3 days Diagnosis/Problems Diagnosis/Problems (1) ARDS (adult respiratory distress syndrome) Status: Acute (2) Acute on chronic respiratory failure with hypoxia Status: Acute (3) Sepsis Status: Acute Qualifiers: Sepsis type: sepsis due to unspecified organism Qualified Codes: A41.9 - Sepsis, unspecified organism (4) Pneumonia Status: Acute Qualifiers: Pneumonia type: due to unspecified organism Laterality: bilateral Lung location: unspecified part of lung Qualified Codes: J18.9 - Pneumonia, unspecified organism (5) Immunosuppressed status Status: Chronic (6) Rheumatoid arthritis Status: Chronic Qualifiers: Rheumatoid arthritis location: unspecified site Rheumatoid factor presence : unspecified presence Qualified Codes: M06.9 - Rheumatoid arthritis, unspecified (7) Lupus Status: Chronic (8) Poor prognosis Status: Acute (9) Hypoxia Status: Acute (10) Fibromyalgia Status: Chronic (11) Rosacea Status: Chronic Clinical Quality Measures DVT/VTE Risk/Contraindication: Risk Factor Score Per Nursin RFS Level Per Nursing on Admit: 3=High KRISTINA CHRISTINE DO Nov 20, 2018 13:08
[2018-11-20] MEDS: HYDROCORTISONE 100 MG/2 ML (Solu-CORTEF) VIAL IV SCH ×2 (14:18→21:07)
--- NOTE | 2018-11-20 16:50 | NUR ---
PT HAS HAD MULTIPLE FAMILY MEMBERS AT BEDSIDE THROUGHOUT DAY. PT REPORTS SHE IS NOT WANTING INTUBATED AND HAS SPOKE TO HER FAMILY ABOUT HOSPICE OPTIONS. STATES SHE "WANTS TO GO HOME AND LIVE HER LIFE."
[2018-11-20] MEDS ORDERED: amLODIPine 10 MG (NORVASC) TAB PO SCH (20:00)
[2018-11-20] MEDS ORDERED: FENOFIBRATE NANOCRYSTALLIZED 160 MG PO SCH (20:00)
[2018-11-20] MEDS ORDERED: doxAzosin 4 MG (CARDURA) TAB PO SCH (21:00)
[2018-11-20] MEDS ORDERED: CARVEDILOL 12.5 MG (COREG) TABLET PO SCH (21:00)
[2018-11-21] VITALS (12 sets, daily range): BP systolic 86–132; BP diastolic 41–61
[2018-11-21] MEDS: PIPERACILLIN/TAZO 4.5 GM/NS 100 ML IV SCH ×2 (01:28)
[2018-11-21] MEDS: RT-ALBUTEROL/IPRATROPIUM 3 ML (DUONEB) VIAL INH SCH ×2 (01:29→16:17)
[2018-11-21 03:28] LABS: BASOPHILS % (AUTO) 1 % (0-10); EOSINOPHILS % (AUTO) 1 % (0-10); HEMATOCRIT 32 % (35-52); HEMOGLOBIN 11.3 G/DL (11.5-16.0); LYMPHOCYTES # (AUTO) 1.2 X 10^3 (1.0-4.0); LYMPHOCYTES % (AUTO) 37 % (12-44); MEAN CORPUSCULAR HEMOGLOBIN 35 PG (25-34); MEAN CORPUSCULAR HGB CONC 35 G/DL (32-36); MEAN CORPUSCULAR VOLUME 102 FL (80-99); MEAN PLATELET VOLUME 10.7 FL (7.4-10.4); MONOCYTES # (AUTO) 0.4 X 10^3 (0.0-1.0); MONOCYTES % (AUTO) 13 % (0-12); NEUTROPHILS # (AUTO) 1.5 X 10^3 (1.8-7.8); NEUTROPHILS % (AUTO) 48 % (42-75); PLATELET COUNT 190 10^3/uL (130-400); RED CELL DISTRIBUTION WIDTH 14.6 % (10.0-14.5); WHITE BLOOD COUNT 3.2 10^3/uL (4.3-11.0)
[2018-11-21 03:59] LABS: BUN/CREATININE RATIO 24; CALCIUM 8.5 MG/DL (8.5-10.1); CARBON DIOXIDE 22 MMOL/L (21-32); CREATININE SERUM 0.79 MG/DL (0.60-1.30); GFR ESTIMATED > 60; GLUCOSE 162 MG/DL (70-105); MAGNESIUM 2.2 MG/DL (1.8-2.4); PHOSPHORUS 2.1 MG/DL (2.3-4.7)
[2018-11-21 04:32] LABS: CHLORIDE 108 MMOL/L (98-107); POTASSIUM 4.1 MMOL/L (3.6-5.0); SODIUM 139 MMOL/L (135-145)
--- NOTE | 2018-11-21 04:54 | Pulmonary Progress Note ---
ABDOULAYEJAMIL García STUDENT 11/21/18 0454: Subjective Date Seen by a Provider: Nov 21, 2018 Time Seen by a Provider: 04:49 Subjective/Events-last exam Patient is still feeling short of breath this morning. She notes that if she is laying there without movement, she feels fine, but with any movement, she gets winded. She also notes a non-productive cough. Review of Systems General: No Chills, No Night Sweats; Fatigue HEENT: No Head Aches, No Sinus Congestion Pulmonary: Dyspnea, Cough; No Pleuritic Chest Pain Cardiovascular: No: Chest Pain, Palpitations, Paroxysmal Noc. Dyspnea, Edema Gastrointestinal: No: Nausea, Vomiting, Abdominal Pain Genitourinary: No Dysuria, No Frequency Sepsis Event Evaluation Height, Weight, BMI Height: 5'5.00" Weight: 170lbs. 0.0oz. 77.195287iv; 28.3 BMI Method:Stated Focused Exam Lactate Level 11/19/18 10:30: Lactic Acid Level 2.73*H 11/19/18 12:40: Lactic Acid Level 1.52 Time of Focused Exam: 12:00 Exam Exam Vital Signs Date Time Temp Pulse Resp B/P (MAP) Pulse Ox O2 Delivery O2 Flow Rate FiO2 11/21/18 04:00 77 22 101/48 (65) 94 Vapotherm 80.00 25.00 11/21/18 03:00 74 25 100/49 (66) 92 Vapotherm 75.00 25.00 11/21/18 02:31 76 18 93 Vapotherm 75.00 25.00 11/21/18 02:26 84 28 86 Vapotherm 100.00 25.00 11/21/18 02:00 81 24 108/55 (72) 93 Vapotherm 75.00 25.00 11/21/18 01:31 87 32 111/53 (72) 85 Vapotherm 75.00 25.00 11/21/18 01:29 90 Vapotherm 25.00 75 11/21/18 01:00 74 11/21/18 01:00 72 27 100/41 (60) 86 Vapotherm 75.00 25.00 11/21/18 00:00 76 22 104/47 (66) 96 Vapotherm 75.00 25.00 11/21/18 00:00 Vapotherm 25.00 75 11/20/18 23:00 77 36 106/44 (64) 93 Vapotherm 75.00 25.00 11/20/18 22:00 67 33 94/39 (57) 96 Vapotherm 75.00 25.00 11/20/18 21:10 91 Vapotherm 25.00 75 11/20/18 21:00 73 25 106/51 (69) 75 Vapotherm 75.00 25.00 11/20/18 20:00 Vapotherm 25.00 75 11/20/18 20:00 105 27 115/84 (94) 72 Vapotherm 75.00 25.00 11/20/18 19:00 78 11/20/18 19:00 78 16 109/43 (65) 93 Vapotherm 75.00 25.00 11/20/18 18:08 93 Vapotherm 25.00 75 11/20/18 18:00 76 33 110/59 (76) 95 Vapotherm 75.00 25.00 11/20/18 17:00 72 23 105/85 (92) 95 Vapotherm 75.00 25.00 11/20/18 16:43 Vapotherm 75.00 25.00 11/20/18 16:00 74 16 97/73 (81) 90 Vapotherm 70.00 25.00 11/20/18 15:49 97.8 11/20/18 15:19 Vapotherm 25.00 70 11/20/18 15:00 76 24 100/51 (67) 93 Vapotherm 70.00 25.00 11/20/18 14:26 98 Vapotherm 25.00 75 11/20/18 14:20 99.6 11/20/18 14:00 78 21 104/48 (66) 98 Vapotherm 75.00 25.00 11/20/18 13:23 100.6 11/20/18 13:10 80 11/20/18 13:00 84 25 115/52 (73) 96 Vapotherm 75.00 25.00 11/20/18 12:48 100.6 11/20/18 12:48 100.6 11/20/18 12:27 100.7 11/20/18 12:23 100.7 11/20/18 12:16 Vapotherm 25.00 75 11/20/18 12:00 98 47 139/64 (89) 92 Vapotherm 75.00 25.00 11/20/18 11:00 81 23 106/46 (66) 93 Vapotherm 75.00 25.00 11/20/18 10:13 99 Vapotherm 25.00 75 11/20/18 10:00 84 12 115/56 (75) 94 Vapotherm 75.00 25.00 11/20/18 09:00 90 21 119/55 (76) 97 Vapotherm 75.00 25.00 11/20/18 08:11 Vapotherm 25.00 75 11/20/18 08:00 85 28 107/47 (67) 94 Vapotherm 75.00 25.00 11/20/18 07:53 98.6 11/20/18 07:06 91 Vapotherm 25.00 65 11/20/18 07:00 89 11/20/18 07:00 80 27 122/50 (74) 94 Vapotherm 75.00 25.00 11/20/18 06:00 90 24 123/59 (80) 96 Vapotherm 65.00 25.00 11/20/18 05:15 Vapotherm 65.00 25.00 11/20/18 05:00 96 19 113/41 (65) 96 Vapotherm 85.00 25.00 I & O 11/21/18 07:00 Intake Total 2260 ml Output Total 3075 ml Balance -815 ml Height & Weight Height: 5'5.00" Weight: 170lbs. 0.0oz. 77.910776ao; 28.3 BMI Method:Stated General Appearance: WD/WN, Anxious, Chronically ill, Moderate Distress HEENT: PERRL/EOMI, Pharynx Normal, Moist Mucous Membranes Neck: Full Range of Motion, Normal Inspection, Non Tender, Supple, Carotid Bruit Respiratory: Chest Non Tender, Accessory Muscle Use, Crackles, Decreased Breath Sounds, Wheezing Cardiovascular: Regular Rate, Rhythm, No Edema, No Gallop, No JVD, No Murmur, Normal Peripheral Pulses, Tachycardia Capillary Refill: Less Than 3 Seconds Peripheral Pulses: 2+ Dorsalis Pedis (R), 2+ Left Dors-Pedis (L) Gastrointestinal: normal bowel sounds, non tender, soft Extremity: Normal Capillary Refill, Normal Inspection, Normal Range of Motion, Non Tender, No Calf Tenderness, No Pedal Edema Neurologic/Psychiatric: Alert, Oriented x3, No Motor/Sensory Deficits, Normal Mood/Affect Skin: Normal Color, Warm/Dry Lymphatic: No Adenopathy Results Lab Laboratory Tests 11/19/18 09:53 11/20/18 03:10 11/21/18 03:05 Assessment/Plan Assessment/Plan Pneumonia with hypoxia and sepsis -Zosyn -Costello cultures are preliminarily negative ARDS -CXR showed worsening bilateral infiltrates -Lasix 40 x 1 hypokalemia, resolved -monitor hypophos -replace PANCHO BOLES 11/21/18 0504: Subjective Time Seen by a Provider: 04:59 Subjective/Events-last exam Pt is wanting to start comfort measures only here in hospital. Daughter at bedside and she wants to support her mother with whatever she wants. Exam Exam General Appearance: WD/WN, Anxious, Chronically ill, Moderate Distress HEENT: PERRL/EOMI, Pharynx Normal, Moist Mucous Membranes Neck: Full Range of Motion, Non Tender, Supple, Carotid Bruit Respiratory: Chest Non Tender, Accessory Muscle Use, Crackles, Decreased Breath Sounds Cardiovascular: Regular Rate, Rhythm, No Edema, No Gallop, No JVD, No Murmur, Normal Peripheral Pulses Gastrointestinal: normal bowel sounds, soft Extremity: Normal Capillary Refill, Normal Inspection, Normal Range of Motion, Non Tender, No Calf Tenderness, No Pedal Edema Neurologic/Psychiatric: Alert, Oriented x3, No Motor/Sensory Deficits, Normal Mood/Affect Skin: Normal Color, Warm/Dry Lymphatic: No Adenopathy Assessment/Plan Assessment/Plan Pneumonia with hypoxia and sepsis -Currently on Zosyn Acute respiratory failure with oxygenation failure ARDS with bilateral pneumonia -Pt is requiring high flow oxygen via Vapotherm hypokalemia, resolved hypophos Upon entering room RN tells me patient wants to go home with hospice care. She is currently requiring 80% oxygen via Vapotherm and has ARDS. She lives at home with her who is also ill. Daughter lives close by however runs a daycare out of her home. I explained to pt home vs hospital hospice. She would like to go with comfort care only/hospice care in hospital. Daughter supports patient. Will make patient DETAILER FURNITURE. Once patient is comfortable will D/C Vapotherm. Patient and family understands she will probably in the hospital 24- 48hours. They just want her to be comfortable. JAMIL STANFORD STUDENT Nov 21, 2018 04:54 PANCHO BOLES DO Nov 21, 2018 05:04
[2018-11-21] MEDS ORDERED: ONDANSETRON 4 MG/2 ML (SDV) Z0FRAN IVP PRN (05:30)
[2018-11-21] MEDS ORDERED: morphine INJ 4 MG/ML 1 ML (VIAL/SYRINGE) IV PRN (05:30)
[2018-11-21] MEDS ORDERED: ARTIFICAL TEARS 0.4 ML UNIT DOSE (REFRESH PLUS) OU PRN (05:30)
[2018-11-21] MEDS ORDERED: BISACODYL 10 MG SUPP (DULCOLAX) PR PRN (05:30)
[2018-11-21] MEDS ORDERED: ACETAMINOPHEN 650 MG SUPP (TYLENOL) PR PRN (05:30)
[2018-11-21] MEDS ORDERED: SALIVA STIMULANT MOUTH SPRAY (BIOTENE) 1.5 OZ MM PRN (05:30)
[2018-11-21] MEDS ORDERED: GLYCOPYRROLATE 0.2 MG/ML (ROBINUL) 2 ML VIAL IV PRN (05:30)
[2018-11-21] MEDS ORDERED: BUMETANIDE 1 MG/4 ML (BUMEX) VIAL IV NR ×2 (05:30→06:30)
[2018-11-21] MEDS ORDERED: PROMETHAZINE INJ 25 MG/ML (PHENERGAN) AMP IVP PRN (05:30)
[2018-11-21] MEDS ORDERED: LORazepam INJ 2 MG/ML (ATIVAN) VIAL IVP PRN (05:30)
[2018-11-21] MEDS ORDERED: ATROPINE 1% OPHTHALMIC SOLN 2 ML SL PRN (05:30)
[2018-11-21] MEDS ORDERED: RT-ALBUTEROL/IPRATROPIUM 3 ML (DUONEB) VIAL INH PRN (06:45)
--- NOTE | 2018-11-21 07:43 | Diagnostic Imaging Report ---
Indication: Dyspnea, shortness of air. Comparison study: Chest from 11/20/2018. Findings: A frontal view of the chest demonstrates minimal improvement of the diffuse bilateral pulmonary infiltrates. Heart size remains upper normal. No significant effusions are seen. Impression: There has been slight improvement of the diffuse bilateral pulmonary infiltrates. Dictated by: Dictated on workstation # [id number]
--- NOTE | 2018-11-21 08:55 | Progress Note ---
Subjective Date Seen by a Provider: Nov 21, 2018 Time Seen by a Provider: 08:55 Subjective/Events-last exam PT IS AN 78 Y/O FEMALE KNOWN TO ME FROM CLINIC. THE PATIENT HAS HAD DISCUSSION WITH FAMILY AND DR. BOLES - THEY HAVE DECIDED TO PURSUE COMFORT CARE IN THE HOSPITAL Focused Exam Lactate Level 11/19/18 10:30: Lactic Acid Level 2.73*H 11/19/18 12:40: Lactic Acid Level 1.52 Time of Focused Exam: 12:00 Objective Exam Last Set of Vital Signs Vital Signs Date Time Temp Pulse Resp B/P (MAP) Pulse Ox O2 Delivery O2 Flow Rate FiO2 11/21/18 07:00 98.1 11/21/18 06:17 89 Vapotherm 25.00 80 11/21/18 06:00 78 28 107/44 (65) Capillary Refill : Less Than 3 Seconds I&O Intake and Output 11/20/18 23:59 Intake Total 2410 ml Output Total 4375 ml Balance -1965 ml Intake Oral 1710 ml IV Total 700 ml Output Urine Total 4375 ml # Voids 1 Results Lab Laboratory Tests 11/20/18 10:47: Glucometer 201H 11/20/18 15:48: Glucometer 154H 11/20/18 20:52: Glucometer 243H 11/21/18 03:05: White Blood Count 3.2L, Red Blood Count 3.19L, Hemoglobin 11.3L, Hematocrit 32L , Mean Corpuscular Volume 102H, Mean Corpuscular Hemoglobin 35H, Mean Corpuscular Hemoglobin Concent 35, Red Cell Distribution Width 14.6H, Platelet Count 190, Mean Platelet Volume 10.7H, Neutrophils (%) (Auto) 48, Lymphocytes (% ) (Auto) 37, Monocytes (%) (Auto) 13H, Eosinophils (%) (Auto) 1, Basophils (%) ( Auto) 1, Neutrophils # (Auto) 1.5L, Lymphocytes # (Auto) 1.2, Monocytes # (Auto ) 0.4, Eosinophils # (Auto) 0.0, Basophils # (Auto) 0.0, Sodium Level 139, Potassium Level 4.1, Chloride Level 108H, Carbon Dioxide Level 22, Anion Gap 9, Blood Urea Nitrogen 19H, Creatinine 0.79, Estimat Glomerular Filtration Rate > 60, BUN/Creatinine Ratio 24, Glucose Level 162H, Calcium Level 8.5, Phosphorus Level 2.1L, Magnesium Level 2.2 Microbiology 11/19/18 Blood Culture - Preliminary, Resulted No growth 11/19/18 MRSA Screen - Final, Complete MRSA not isolated Assessment/Plan Assessment/Plan Assess & Plan/Chief Complaint PNEUMONIA SEPSIS ARDS Clinical Quality Measures DVT/VTE Risk/Contraindication: Risk Factor Score Per Nursin RFS Level Per Nursing on Admit: 3=High NAZ OLSON MD Nov 21, 2018 08:55
[2018-11-21] MEDS ORDERED: PANTOPRAZOLE 40 MG (PROTONIX) TAB PO SCH (09:00)
[2018-11-21] MEDS ORDERED: LOSARTAN 100 MG (COZAAR) TABLET PO SCH (09:00)
[2018-11-21] MEDS ORDERED: GLIMEPIRIDE 1 MG (AMARYL) TAB PO SCH (09:00)
--- NOTE | 2018-11-21 09:33 | NUR ---
REPORT CALLED TO AMY BLACK. PATIENT TRANSFERRED TO [facility], PERSONAL BELONGINGS SENT WITH FAMILY.
[2018-11-21] MEDS: ACYCLOVIR 400 MG TABLET (ZOVIRAX) PO SCH ×4 (10:00→20:34)
[2018-11-21] MEDS: PIPERACILLIN SODIUM/TAZOBACTAM 4.5 GM in NS (IVPB) 100 ML IV SCH ×2 (10:00→17:20)
--- NOTE | 2018-11-21 10:00 | NUR ---
0940- This RN entered room with aide when notified the pt was in her room. Previous RN that accompanied pt was not in the room. Vitals were taken and the pt's O2 sat was 60% on 10L high flow NC. Notified RT Christy and pt was placed on oxy mask 15L while RT retrieved vapotherm. Vapotherm 30L 90% with sats at 94% at 1000.
--- NOTE | 2018-11-21 11:23 | NUR ---
Palliative Care RN in to see patient after getting Hospice consult r/t patient wanting to be comfort care only. She currently is not on CCMO and when questioned about it she said 'Dr. Christine and Franchesca said I don't look that bad". Unsure what that means. But patient verbalized to this RN that she is tired of not being able to talk, eat or walk to the bathroom without getting terribly SOB. She says she is just "so tired of living like this". In continuation of our conversation I learned that she lives in her home with an 80 y/o man who is not able to assist in her care. She is not opposed to a SNF or GROUP HOME. She does not currently have oxygen at home and this would be a good first step for her. Family did come in during my conversation with the patient. We discussed hospice and again the SNF vs [facility] vs home with assist. Daughter took me aside and we discussed the changes in the POC, they were told that they would be stopping aggressive care and that patient would likely pass once transition to CCMO happened.
--- NOTE | 2018-11-21 15:39 | NUR ---
Initial visit with pt and family. Pt's family verbalized feeling on an "emotional roller coaster." Pt states she is tired and does not want to continue living in this way. States she has no energy and gets short of breath even while eating. Pt previously enjoyed cooking large meals for her family and spending time with them. States she has been 'fighting with her health' since 56 years of age, and she feels at peace with dying. States she would like to go home and "sit in my easy chair."
[2018-11-21] MEDS: FENOFIBRATE 134 MG (LOFIBRA) CAPSULE PO SCH ×2 (20:30→20:34)
[2018-11-22] MEDS: PIPERACILLIN SODIUM/TAZOBACTAM 4.5 GM in NS (IVPB) 100 ML IV SCH (01:52)
[2018-11-22] MEDS: RT-ALBUTEROL/IPRATROPIUM 3 ML (DUONEB) VIAL INH SCH ×2 (02:08→07:23)
[2018-11-22 05:04] LABS: BASOPHILS % (AUTO) 0 % (0-10); EOSINOPHILS # (AUTO) 0.1 10^3/uL (0.0-0.3); EOSINOPHILS % (AUTO) 3 % (0-10); HEMATOCRIT 32 % (35-52); LYMPHOCYTES # (AUTO) 1.5 X 10^3 (1.0-4.0); LYMPHOCYTES % (AUTO) 34 % (12-44); MEAN CORPUSCULAR HEMOGLOBIN 35 PG (25-34); MEAN CORPUSCULAR HGB CONC 35 G/DL (32-36); MEAN CORPUSCULAR VOLUME 101 FL (80-99); MEAN PLATELET VOLUME 11.3 FL (7.4-10.4); MONOCYTES # (AUTO) 0.5 X 10^3 (0.0-1.0); MONOCYTES % (AUTO) 11 % (0-12); NEUTROPHILS # (AUTO) 2.3 X 10^3 (1.8-7.8); NEUTROPHILS % (AUTO) 52 % (42-75); PLATELET COUNT 141 10^3/uL (130-400); RED CELL DISTRIBUTION WIDTH 14.1 % (10.0-14.5); WHITE BLOOD COUNT 4.3 10^3/uL (4.3-11.0)
[2018-11-22 05:21] LABS: BUN/CREATININE RATIO 26; CALCIUM 8.5 MG/DL (8.5-10.1); CARBON DIOXIDE 25 MMOL/L (21-32); CHLORIDE 100 MMOL/L (98-107); CREATININE SERUM 0.73 MG/DL (0.60-1.30); GFR ESTIMATED > 60; GLUCOSE 129 MG/DL (70-105); MAGNESIUM 1.9 MG/DL (1.8-2.4); PHOSPHORUS 2.4 MG/DL (2.3-4.7); POTASSIUM 3.5 MMOL/L (3.6-5.0); SODIUM 135 MMOL/L (135-145)
[2018-11-22] MEDS: ACYCLOVIR 400 MG TABLET (ZOVIRAX) PO SCH (06:56)
[2018-11-22] MEDS ORDERED: predniSONE 5 MG TAB PO SCH (07:00)
--- NOTE | 2018-11-22 07:13 | Pulmonary Progress Note ---
JAMIL STANFORD Raquel STUDENT 11/22/18 0713: Subjective Date Seen by a Provider: Nov 22, 2018 Time Seen by a Provider: 07:07 Sepsis Event Evaluation Height, Weight, BMI Height: 5'5.00" Weight: 170lbs. 0.0oz. [id number]; 28.3 BMI Method:Stated Focused Exam Lactate Level 11/19/18 10:30: Lactic Acid Level 2.73*H 11/19/18 12:40: Lactic Acid Level 1.52 Time of Focused Exam: 12:00 Exam Exam Vital Signs Date Time Temp Pulse Resp B/P (MAP) Pulse Ox O2 Delivery O2 Flow Rate FiO2 11/22/18 02:08 86 Vapotherm 40.00 80 11/21/18 21:16 90 Vapotherm 40.00 80 11/21/18 20:06 98.1 94 20 129/61 (83) 91 Vapotherm 80.00 40.00 11/21/18 20:00 Vapotherm 80 11/21/18 18:48 90 Vapotherm 40.00 80 11/21/18 16:43 98.2 74 20 105/53 (70) 99 Vapotherm 80.00 40.00 11/21/18 12:55 98.6 82 20 111/54 (73) 96 Vapotherm 90.00 30.00 11/21/18 10:40 98.6 11/21/18 10:30 Vapotherm 30.00 90 11/21/18 09:54 96 Vapotherm 40.00 90 11/21/18 09:25 101.2 103 22 132/61 (84) 96 Vapotherm 90.00 30.00 11/21/18 08:00 98.1 I & O 11/22/18 07:00 Intake Total 1240 ml Output Total 1450 ml Balance -210 ml Height & Weight Height: 5'5.00" Weight: 170lbs. 0.0oz. 77.313687vn; 28.3 BMI Method:Stated General Appearance: WD/WN, Anxious, Chronically ill, Moderate Distress HEENT: PERRL/EOMI, Pharynx Normal, Moist Mucous Membranes Neck: Full Range of Motion, Non Tender, Supple, Carotid Bruit Respiratory: Chest Non Tender, Accessory Muscle Use, Crackles, Decreased Breath Sounds Cardiovascular: Regular Rate, Rhythm, No Edema, No Gallop, No JVD, No Murmur, Normal Peripheral Pulses Capillary Refill: Less Than 3 Seconds Peripheral Pulses: 2+ Dorsalis Pedis (R), 2+ Left Dors-Pedis (L) Gastrointestinal: normal bowel sounds, soft Extremity: Normal Capillary Refill, Normal Inspection, Normal Range of Motion, Non Tender, No Calf Tenderness, No Pedal Edema Neurologic/Psychiatric: Alert, Oriented x3, No Motor/Sensory Deficits, Normal Mood/Affect Skin: Normal Color, Warm/Dry Lymphatic: No Adenopathy Results Lab Laboratory Tests 11/21/18 03:05 11/22/18 04:45 Assessment/Plan Assessment/Plan Pneumonia with hypoxia and sepsis -Zosyn -Tmax 101.2 yesterday, WBC count 4.3 today ARDS -CXR showed slightly improved bilateral infiltrates -Gave bumex yesterday Acute respiratory failure with oxygenation failure -Requiring Vapotherm and sating at 86% Urinary tract infection with pseudomonas -Continue Zosyn pending sensitivities hypokalemia -replace PANCHO BOLES DO 11/22/18 0810: Subjective Time Seen by a Provider: 08:05 Subjective/Events-last exam PT is still requiring Vapotherm at 90% Fi02 and 40 liters/min. Pt complains of progressive SOB and conversational dyspnea. Exam Exam General Appearance: WD/WN, Anxious, Chronically ill, Moderate Distress HEENT: PERRL/EOMI, Moist Mucous Membranes Neck: Full Range of Motion, Non Tender, Supple Respiratory: Chest Non Tender, Accessory Muscle Use, Crackles, Decreased Breath Sounds, Respiratory Distress Cardiovascular: Regular Rate, Rhythm, No Edema, No Gallop, No JVD, No Murmur, Normal Peripheral Pulses Peripheral Pulses: 2+ Dorsalis Pedis (R), 2+ Left Dors-Pedis (L) Gastrointestinal: normal bowel sounds, soft Extremity: Normal Capillary Refill, Normal Inspection, Normal Range of Motion, Non Tender, No Calf Tenderness, No Pedal Edema Neurologic/Psychiatric: Alert, Oriented x3, No Motor/Sensory Deficits, Normal Mood/Affect Skin: Normal Color, Warm/Dry Lymphatic: No Adenopathy Assessment/Plan Assessment/Plan Acute respiratory failure -requiring Vapotherm at 90% Fi02 and 40 liters/min -Pt received 2mg of Bumex yesterday without any improvement in pulmonary status. -Will repeat CXR -Add BNP to AM labs -Will give another 2mg of Bumex IV X 1 -MRSA swab is negative Pneumonia with hypoxia and sepsis -Zosyn -Tmax 101.2 yesterday, WBC count 4.3 today ARDS -CXR showed slightly improved bilateral infiltrates -Gave bumex yesterday Acute respiratory failure with oxygenation failure -Requiring Vapotherm and sating at 86% Urinary tract infection with pseudomonas -Continue Zosyn pending sensitivities hypokalemia -replace TAI-JAMIL SCHMID STUDENT Nov 22, 2018 07:13 PANCHO BOLES DO Nov 22, 2018 08:10
[2018-11-22] MEDS ORDERED: BUMETANIDE 1 MG/4 ML (BUMEX) VIAL IV NR (08:15)
[2018-11-22] MEDS ORDERED: POTASSIUM CL 10MEQ/50ML IVPB 50 ML IV SCH (08:15)
[2018-11-22] MEDS ORDERED: KCL 20 MEQ TAB (K-DUR) PO NR (08:15)
[2018-11-22 08:31] VITALS: BP 141/64
[2018-11-22] MEDS ORDERED: NS IV 1000 ML 1,000 ML IV SCH (09:20)
--- NOTE | 2018-11-22 09:28 | Progress Note ---
Focused Exam Lactate Level 11/19/18 10:30: Lactic Acid Level 2.73*H 11/19/18 12:40: Lactic Acid Level 1.52 Time of Focused Exam: 12:00 Objective Exam Last Set of Vital Signs Vital Signs Date Time Temp Pulse Resp B/P (MAP) Pulse Ox O2 Delivery O2 Flow Rate FiO2 11/22/18 08:31 100.1 98 20 141/64 (89) 89 Vapotherm 90.00 40.00 11/22/18 07:23 90 Capillary Refill : Less Than 3 Seconds I&O Intake and Output 11/22/18 00:00 Intake Total 1140 ml Output Total 1350 ml Balance -210 ml Intake Oral 1040 ml IV Total 100 ml Output Urine Total 1350 ml Results Lab Laboratory Tests 11/22/18 04:45: White Blood Count 4.3, Red Blood Count 3.16L, Hemoglobin 11.0L, Hematocrit 32L, Mean Corpuscular Volume 101H, Mean Corpuscular Hemoglobin 35H, Mean Corpuscular Hemoglobin Concent 35, Red Cell Distribution Width 14.1, Platelet Count 141, Mean Platelet Volume 11.3H, Neutrophils (%) (Auto) 52, Lymphocytes (%) (Auto) 34 , Monocytes (%) (Auto) 11, Eosinophils (%) (Auto) 3, Basophils (%) (Auto) 0, Neutrophils # (Auto) 2.3, Lymphocytes # (Auto) 1.5, Monocytes # (Auto) 0.5, Eosinophils # (Auto) 0.1, Basophils # (Auto) 0.0, Sodium Level 135, Potassium Level 3.5L, Chloride Level 100, Carbon Dioxide Level 25, Anion Gap 10, Blood Urea Nitrogen 19H, Creatinine 0.73, Estimat Glomerular Filtration Rate > 60, BUN /Creatinine Ratio 26, Glucose Level 129H, Calcium Level 8.5, Phosphorus Level 2.4, Magnesium Level 1.9, B-Type Natriuretic Peptide 164.6H Microbiology 11/19/18 Blood Culture - Preliminary, Resulted No growth 11/19/18 MRSA Screen - Final, Complete MRSA not isolated 11/19/18 Urine Culture - Preliminary, Resulted Pseudomonas aeruginosa Assessment/Plan Assessment/Plan Assess & Plan/Chief Complaint PNEUMONIA SEPSIS ARDS Clinical Quality Measures DVT/VTE Risk/Contraindication: Risk Factor Score Per Nursin RFS Level Per Nursing on Admit: 3=High NAZ OLSON MD Nov 22, 2018 09:27
[2018-11-22] MEDS ORDERED: morphine PCA 100 MG/100 ML BAG IV PRN (09:30)
--- NOTE | 2018-11-22 10:16 | NUR ---
PALLIATIVE CARE RN in to see patient. She confirms that she is ready to pursue CCMO as she does not feel any better than she did yesterday and she is tired of struggling to breathe. Explained to her that we would set up the ENROLLED AGENT prior to reduction of the O2 from Vapotherm to NC. She is understanding. Family in room have no questions at this time.
--- NOTE | 2018-11-22 10:38 | NUR ---
INVESTMENT OFFICER MORPHINE STARTED PER DR. OLSON ORDER'S. 1MG CONT. AND 1 MG EVERY 10 MIN WITH NO LOCKOUT IN 4 HRS. INSTRUCTED PT. AND FAMILY ON USE OF INVESTMENT OFFICER BUTTON AND SETTINGS. PT. SOA AT TIMES AND COUGHING AT INTERVALS.
--- NOTE | 2018-11-22 11:15 | NUR ---
Pastoral care visit per staff request. Large family was gathered around pts bed, pt appeared asleep, spoke with family, gathered family and had prayer, as prayer was completed pt awoke, went to bedside and pt took my hand and we visited for several minutesabout her marriage and family. pt and family seem to be coping well.
--- NOTE | 2018-11-22 11:30 | NUR ---
COUGHING AT INTERVALS. SOA WITH REST AND EXCERPTION. HOB UP. DEAN CATH WITH CLEAR YELLOW URINE.
[2018-11-22] MEDS: LORazepam INJ 2 MG/ML (ATIVAN) VIAL IVP SCH ×2 (12:23→13:02)
--- NOTE | 2018-11-22 13:10 | NUR ---
MORPHINE ROOFER ASSISTANT INCREASED TO 2 MG PER HR. WITH 2 MG EVERY 10 MIN. AND NO LOCKOUT IN [address] OLSON ORDER'S. SOA AND COUGHING AT INTERVALS. FAMILY REMAINS AT BEDSIDE.
--- NOTE | 2018-11-22 13:10 | NUR ---
DR. OLSON NOTIFIED OF PT. CONT. TO BE SOA AND COUGHING.
--- NOTE | 2018-11-22 13:45 | NUR ---
NO RESP. NO HEART BEAT. 2ND NURSE CHECK FOR RESP. AND HEART RATE. NO HEART AUSCULTATION NOTED. FAMILY AT BEDSIDE.
--- NOTE | 2018-11-22 15:55 | NUR ---
BODY LEFT WITH [facility] PER EZEKIEL PYLE
== END 2018-11-22 13:45 | disposition expired | DRG 871 ==
LOC: EDUNIT# 09:45 → ER 09:46 → ICU 12:10 → 4TH 11-21 09:19
PROVIDERS: ADMIT Internal Medicine; ATTEND Internal Medicine
DX: A41.9 Sepsis, unspecified organism (principal); J18.9 Pneumonia, unspecified organism; J80 Acute respiratory distress syndrome; J44.0 Chronic obstructive pulmonary disease with (acute) lower respiratory infection; K51.90 Ulcerative colitis, unspecified, without complications; N39.0 Urinary tract infection, site not specified; Z51.5 Encounter for palliative care; Z66 Do not resuscitate; I10 Essential (primary) hypertension; E78.00 Pure hypercholesterolemia, unspecified; K21.9 Gastro-esophageal reflux disease without esophagitis; M06.9 Rheumatoid arthritis, unspecified; M79.7 Fibromyalgia; M32.9 Systemic lupus erythematosus, unspecified; G62.9 Polyneuropathy, unspecified; L71.9 Rosacea, unspecified; E87.6 Hypokalemia; E83.39 Other disorders of phosphorus metabolism; B96.5 Pseudomonas (aeruginosa) (mallei) (pseudomallei) as the cause of diseases classified elsewhere; Z79.899 Other long term (current) drug therapy; Z85.820 Personal history of malignant melanoma of skin
CPT/HCPCS: 36415; 36600; 71045; 80048; 80053; 81000; 82805; 82962; 83605; 83735; 83880; 84100; 85007; 85025; 85027; 85610; 85730; 86141; 87040; 87077; 87081; 87088; 87804; 94640; 94660; 94760; 96361; 96365